=== PATIENT | female | born 1945 | race Caucasian/White ===

== ENCOUNTER 2019-09-27 08:47 | Observation (INO) ==
--- NOTE | 2019-09-06 14:01 | PAT Medication Instructions ---
Medication Instructions Date of Service September 06, 2019 Home Medications amoxicillin See Rx Instructions .ROUTE .COMPLEX amlodipine 5 mg tablet 5 mg PO QAM celecoxib 200 mg capsule 200 mg PO QAM nadolol 20 mg tablet 20 mg PO QAM omeprazole 40 mg capsule,delayed release 40 mg PO QAM prednisone 5 mg tablet 5 mg PO QAM famotidine 20 mg PO BID furosemide 40 mg PO QAM gabapentin 300 mg PO TID docusate sodium [Colace] 100 mg PO BID PRN duloxetine 60 mg PO QAM ASK your surgeon for instructions celecoxib 200 mg capsule 200 mg PO QAM DO NOT take the morning of surgery docusate sodium [Colace] 100 mg PO BID PRN furosemide 40 mg PO QAM amoxicillin See Rx Instructions .ROUTE .COMPLEX Take morning of surgery With a small sip of water, OTHERWISE NOTHING TO EAT OR DRINK AFTER MIDNIGHT: duloxetine 60 mg PO QAM gabapentin 300 mg PO TID nadolol 20 mg tablet 20 mg PO QAM omeprazole 40 mg capsule,delayed release 40 mg PO QAM prednisone 5 mg tablet 5 mg PO QAM famotidine 20 mg PO BID amlodipine 5 mg tablet 5 mg PO QAM Take evening before surgery famotidine 20 mg PO BID gabapentin 300 mg PO TID docusate sodium [Colace] 100 mg PO BID PRN Other Notes If you have any questions please call us at [phone] or [phone] or [phone] or [phone]
--- NOTE | 2019-09-08 13:08 | Anesthesiology Consultation ---
Date of Service September 08, 2019 Assessment & Plan (1) Encounter for pre-operative examination: Chart Review Chart Review: Acceptable Risk for Surgery (pending preop Covid testing) and Patient seen in Pre Admission Testing Per PAT appt 09/08/19, pt resides in [facility]. Travels only to [facility] for medical appts. Educated patient to follow up with surgeon's office regarding Covid testing. Educated on importance of self quarantining, social distancing and wearing mask in public both for the patient and household contacts. Teaching & Discussion Pre-Anesthesia Teaching/Discussion Notes: Instructed NPO after midnight before surgery,except medications with 15 cc of water. Medication instructions provided according to the PAT guidelines. History Surgery Operation Date: 09/27/19 09:20 Proposed Procedures p Right Reverse Total Shoulder Arthroplasty - Lanre Parekh DO Operation Date: 09/27/19 13:10 Proposed Procedures p Left Total Knee Arthroplasty - Lanre Parekh DO Height/Weight Height: 5 ft 4.5 in Weight: 94.3 kg Allergies Allergy/AdvReac Type Severity Reaction Status Date / Time latex Allergy Mild RASH Verified 09/02/19 09:07 NSAIDS (Non-Steroidal AdvReac Intermediate steinberg's Verified 09/02/19 09:07 Anti-Inflamma esophagus Dyazide AdvReac Mild reaction Verified 08/26/17 08:15 unknown hydrochlorothiazide AdvReac Mild reaction Verified 09/02/19 09:07 unknown triamterene AdvReac Mild reaction Verified 09/02/19 09:07 unknown Medications Home Medications Medication Instructions Recorded Confirmed Last Taken amoxicillin See Rx Instructions .ROUTE .COMPLEX 07/24/18 09/02/19 Unknown amlodipine 5 mg tablet 5 mg PO QAM 10/08/18 09/02/19 Unknown celecoxib 200 mg capsule 200 mg PO QAM 10/08/18 09/02/19 Unknown nadolol 20 mg tablet 20 mg PO QAM 10/08/18 09/02/19 Unknown omeprazole 40 mg capsule,delayed 40 mg PO QAM 10/08/18 09/02/19 Unknown release prednisone 5 mg tablet 5 mg PO QAM 10/08/18 09/02/19 Unknown famotidine 20 mg PO BID 06/16/19 09/02/19 Unknown furosemide 40 mg PO QAM 06/16/19 09/02/19 Unknown gabapentin 300 mg PO TID 06/16/19 09/02/19 Unknown docusate sodium [Colace] 100 mg PO BID PRN 09/02/19 09/02/19 Unknown duloxetine 60 mg PO QAM 09/02/19 09/02/19 Unknown Past Medical History Medical History (Updated 09/08/19 @ 13:33 by Janice Encinas PA-C) Anxiety Barretts esophagus Breast cancer Left side initially- lumpectomy- no chemo/XRT; right side later dx'ed - had partial mastectomy- s/p XRT /possibly chemo- no current issues Cirrhosis Non-alcoholic Depression Fatty liver GERD (gastroesophageal reflux disease) Well controlled and stable History of anesthesia reaction slow to wake up Hypertension Non-Hodgkin lymphoma chemo/radiation- currently remission Osteoarthritis Skin cancer Exercise / Class Metabolic Activity III < 4 Walking/Shop/Light housework (one flight stairs - no chest pain/mild SOB) Past Family History Family History (Updated 09/02/19 @ 09:17 by Karla Patel RN) Other No family history of adverse response to anesthesia Past Surgical History Surgical History (Updated 09/08/19 @ 13:33 by JERRI GomezC) H/O Mohs micrographic surgery for skin cancer Removed from top of head History of appendectomy History of cholecystectomy History of colonoscopy History of esophagogastroduodenoscopy (EGD) History of hysterectomy HAL History of partial mastectomy of right breast with lymph node removal History of right knee joint replacement S/P lumpectomy, left breast Past Anesthesia History No Hx of Anesthesia Complications (with exception with slow to wake- no reintubation or ICU stay ) and No Family Hx of Anesthesia Complications History of PONV No Hx of PONV and No Hx of Motion Sickness Social History Smoking Status: Never smoker Do You Dip or Chew Tobacco: No Hx Alcohol Use: No Hx Substance Use: No substance use type: does not use Review of Systems Occ snoring/possible witnessed apnea- no hx of sleep study Patient denies chest pain, shortness of breath, dyspnea on exertion, cough, wheezing, palpitations. No hx of seizures, stroke, [place]. No hx of blood clots or blood transfusions Physical Exam Vital Signs VITALS BP 138/78 P 61 TEMP 97.4 SP02 96% RESP 16 Constitutional no acute distress ENMT Mouth: no TMJ clicking Thyromental Distance: < 3.5 Finger Breadths (2.5) Mallampati Class: II Missing molars Neck + thick neck and + limited neck extension (significant ) Respiratory normal respiratory effort; no respiratory distress Auscultation: lungs clear to auscultation bilaterally; no wheezes Cardiovascular Rate/Rhythm: regular rate and regular rhythm Heart Sounds: no murmur Vessels: no carotid bruit Musculoskeletal Spine: + pain with cervical ROM (mild) Neurologic moves all extremities Psychiatric Orientation: alert Testing Laboratory Results 09/08/19 13:22 09/08/19 13:22 PT 10.5 Seconds (9.0-12.0) 09/08/19 13:22 INR 1.0 (0.9-1.1) 09/08/19 13:22 APTT 25.2 Seconds (21.0-31.0) 09/08/19 13:22 Blood Type A Positive 09/08/19 13:22 Antibody Screen NEGATIVE 09/08/19 13:22 Electrocardiogram Date: 09/08/19 Findings: + NSR @ (60) Chest X-Ray Date: 09/08/19 Findings: + NAD Echocardiogram Date: 12/30/17 EF: 55 to 59% LV Function: normal Valvular Disease: + AI (Moderate) Mild MR. Mild TR. Mild LA. Stress Test Date: 01/29/18 Type: DSE Resting RWMA: + none Stress echo was negative for inducible ischemia. No arrhythmias. Hypertensive BP response to dobutamine infusion.
[2019-09-08 13:50] LABS: Basophils # (auto) 0.03 K/uL (0-0.2); Basophils % (auto) 0.4 %; Eosinophils # (auto) 0.14 K/uL (0-0.5); Eosinophils % (auto) 1.7 %; Hematocrit (blood only) 41.2 % (37-47); Hemoglobin 14.1 g/dL (12.0-16.0); Immature Granulocytes # (auto) 0.07 K/uL (0.00-0.02); Immature Granulocytes % (auto) 0.9 %; Lymphocytes # (auto) 1.21 K/uL (1.2-3.4); Lymphocytes % (auto) 15.1 %; Mean Corpuscular Hemoglobin 33.7 pg (25-34); Mean Corpuscular Hgb Conc 34.2 g/dL (32-36); Mean Corpuscular Volume 98.3 fL (80-100); Mean Platelet Volume 10.3 fL (7.4-10.4); Monocytes # (auto) 1.18 K/uL (0.11-0.59); Monocytes % (auto) 14.7 %; Neutrophils % (auto) 67.2 %; Platelet Count 172 K/uL (130-400); RDW Coefficient of Variation 15.5 % (11.5-14.5); RDW Standard Deviation 55.6 fL (36.4-46.3); Red Blood Count 4.19 M/uL (4.2-5.4); White Blood Count 8.03 K/uL (4.8-10.8)
--- NOTE | 2019-09-08 13:51 | XRay Report ---
XR chest Pre-admission PA/Lat CLINICAL HISTORY: pat preoperative COMPARISON STUDY: 02/22/2013 FINDINGS: The bones soft tissues and hemidiaphragms are normal. The cardiomediastinal silhouette is n ormal. The lungs are clear. The pulmonary vasculature is normal. IMPRESSION: Negative chest. ACT 112: Negative or not required by law. The above report was generated using voice recognition software. It may contain grammatical, syntax or spelling errors. Electronically signed by: Sammy Magdaleno M.D. 09/08/2019 1:50 PM
[2019-09-08 14:02] LABS: Partial Thromboplastin Ratio 0.9; Partial Thromboplastin Time 25.2 Seconds (21.0-31.0); Prothrombin Time 10.5 Seconds (9.0-12.0)
[2019-09-08 14:18] LABS: BUN Creatinine Ratio 16.6 (10-20); Calcium 9.5 mg/dl (8.5-10.1); Creatinine Clr Calc Pharmacy 64.8 ml/min; Est GFR (African American) 76.6; Est GFR (Non-African American) 66.1
--- NOTE | 2019-09-09 09:05 | Electrocardiogram Report ---
Test Reason : Blood Pressure : / mmHG Vent. Rate : 060 BPM Atrial Rate : 060 BPM P-R Int : 198 ms QRS Dur : 094 ms QT Int : 416 ms P-R-T Axes : -07 -25 025 degrees QTc Int : 416 ms Normal sinus rhythm Normal ECG When compared with ECG of 10-JAN-2015 11:33, No significant change was found Confirmed by Herve Arzate ([id number]) on 09/09/2019 9:04:38 AM Referred By: Lanre Parekh Confirmed By:Herve Arzate
--- NOTE | 2019-09-22 07:29 | History & Physical Report ---
Date of Service September 22, 2019 Assessment & Plan (1) Osteoarthritis of left knee: We will proceed with a left total knee arthroplasty. Postoperatively she will be started on aspirin for DVT prophylaxis and kept overnight in the hospital for postoperative medical management. She plans to use home health of [facility] upon discharge. Present on Admission?: Yes History of Present Illness Chief Complaint: Primary osteoarthritis of the left knee Primary Care Provider: Kerrie Miranda MD Montse is a pleasant 73-year-old female who is been dealing with chronic increasing left knee pain. X-rays and clinical examination have been diagnostic for advanced osteoarthritis of the left knee. After failing conservative treatment, she has elected to proceed with a left total knee arthroplasty. She has a history of a right knee replacement done by Dr. Stanford about 4 years ago. Allergies Allergy/AdvReac Type Severity Reaction Status Date / Time latex Allergy Mild RASH Verified 09/02/19 09:07 NSAIDS (Non-Steroidal AdvReac Intermediate steinberg's Verified 09/02/19 09:07 Anti-Inflamma esophagus Dyazide AdvReac Mild reaction Verified 08/26/17 08:15 unknown hydrochlorothiazide AdvReac Mild reaction Verified 09/02/19 09:07 unknown triamterene AdvReac Mild reaction Verified 09/02/19 09:07 unknown Home Medications Home Medications Medication Instructions Recorded Confirmed Type amoxicillin See Rx Instructions .ROUTE .COMPLEX 07/24/18 09/02/19 History amlodipine 5 mg tablet 5 mg PO QAM 10/08/18 09/02/19 History celecoxib 200 mg capsule 200 mg PO QAM 10/08/18 09/02/19 History nadolol 20 mg tablet 20 mg PO QAM 10/08/18 09/02/19 History omeprazole 40 mg capsule,delayed 40 mg PO QAM 10/08/18 09/02/19 History release prednisone 5 mg tablet 5 mg PO QAM 10/08/18 09/02/19 History famotidine 20 mg PO BID 06/16/19 09/02/19 History furosemide 40 mg PO QAM 06/16/19 09/02/19 History gabapentin 300 mg PO TID 06/16/19 09/02/19 History docusate sodium [Colace] 100 mg PO BID PRN 09/02/19 09/02/19 History duloxetine 60 mg PO QAM 09/02/19 09/02/19 History Past Med/Surg History Medical History Anxiety Barretts esophagus Breast cancer Left side initially- lumpectomy- no chemo/XRT; right side later dx'ed - had partial mastectomy- s/p XRT /possibly chemo- no current issues Cirrhosis Non-alcoholic Depression Fatty liver GERD (gastroesophageal reflux disease) Well controlled and stable History of anesthesia reaction slow to wake up Hypertension Non-Hodgkin lymphoma chemo/radiation- currently remission Osteoarthritis Skin cancer Surgical History H/O Mohs micrographic surgery for skin cancer Removed from top of head History of appendectomy History of cholecystectomy History of colonoscopy History of esophagogastroduodenoscopy (EGD) History of hysterectomy HAL History of partial mastectomy of right breast with lymph node removal History of right knee joint replacement S/P lumpectomy, left breast Family History Other No family history of adverse response to anesthesia Social History Smoking Status: Never smoker Second Hand Exposure: No; Hx Alcohol Use: No Hx Substance Use: No Preferred Language: Cymraes Communication Ability: Effective Feed Handler Required: No Beliefs That Will Affect Care: None Current Living Situation: Spouse Current Living Situation Comment: and son Feels Safe at Home: Yes Review of Systems Review of Systems: All systems reviewed & are unremarkable except as noted in HPI & below Physical Exam Constitutional: WD/WN, vitals as above Eyes: PERRL, conjunctivae normal, anicteric sclerae ENMT: external ear and nose normal, oropharynx normal Neck: trachea midline, no thyromegaly Respiratory: normal respiratory effort Cardiovascular: RRR, no murmur, no edema Gastrointestinal (Abdomen): normal bowel sounds, soft, nontender, no hepatosp lenomegaly Musculoskeletal: On physical examination of the left knee there is a trace effusion. There is near full range of motion and no evidence of instability. There is significant tenderness palpation along the medial and lateral joint lines and over the distal femoral condyles. Psychiatric: A+Ox3, euthymic affect Results & Data Results & Data ([facility]) Diagnostic Findings Radiographs of the left knee demonstrate advanced osteoarthritis with joint space narrowing osteophyte formation and [id number] articulation. PG Care Time/CCT Total # of Minutes Spent Total Time Spent with Patient: Total time spent is greater than 50% in coordination of care (as documented) at patient's floor/unit and/or counseling patient: Coding Level of Care Code 92713 Initial Inpt Care Lvl 2 Diagnoses Osteoarthritis of left knee M17.12
[~2019-09-27 08:47] MED LIST: ACETAMINOPHEN 500 MG TAB PO SCH; BUPIVACAINE 0.5 % 5 MG/1 ML PF 10ML VIAL ONE; CEFAZOLIN 2000MG 2,000 MG/15 ML SYR IV SCH; EPINEPHrine INJ 1 MG/ML AMP ONE; FAMOTIDINE 20 MG TAB PO SCH; GABAPENTIN 300 MG CAP PO SCH; LR 500ML BOLUS, THEN 15ML/HR IV SCH; LR 60ML/HR IV SCH; ROPIVACAINE 0.5% 5 MG/ML 30 ML VIAL ONE; ROPIVACAINE 0.5% HCL/PF 150 MG, BUPIVACAINE 0.5% MPF 30 ML, EPINEPHrine 30MG/30ML (OR U... INSTIL SCH; TRANEXAMIC ACID 1,000 MG **IV Intra-op IV SCH; TRANEXAMIC ACID 1,000 MG **IV Pre-op IV SCH; dexAMETHasone 4 MG TAB PO SCH
--- NOTE | 2019-09-27 08:47 | History & Physical Bridge Note ---
Date of Service September 27, 2019 History & Physical Bridge Note I have examined the patient, reviewed the History & Physical and in the interval since the performance of the History & Physical I have noted the following changes of clinical significance: no changes noted
[2019-09-27] MEDS ORDERED: MEPERIDINE HCL 25 MG/ML CARP/VIAL IV PRN (09:06)
[2019-09-27] MEDS ORDERED: ePHEDrine sulfate 50 MG/ML AMP IV PRN (09:06)
[2019-09-27] MEDS ORDERED: fentaNYL citrate 100 MCG/2 ML VIAL IV PRN (09:06)
[2019-09-27] MEDS ORDERED: HYDROmorphone INJ 1 MG/ML SYRINGE IV PRN (09:06)
[2019-09-27] MEDS ORDERED: LABETALOL HCL IV 5 MG/ML 20ML IV PRN (09:06)
[2019-09-27] MEDS ORDERED: ONDANSETRON INJ 2 MG/ML 2 ML VIAL IV PRN ×2 (09:06→14:21)
[2019-09-27] MEDS ORDERED: PHENYLEPHRINE 100MCG/ML 5ML SYR IV PRN (09:06)
[2019-09-27] MEDS ORDERED: ATROPINE SULFATE 0.1 MG/ML 10ML SYR IV PRN (09:06)
[2019-09-27] MEDS ORDERED: LIDOCAINE HCL 2% 2 ML VIAL/AMP(20MG/ML) INFIL ONE (10:07)
[2019-09-27] MEDS ORDERED: PROPOFOL IV EMULSION 10 MG/ML 20 ML VIAL IV ONE ×4 (10:07→12:03)
[2019-09-27] MEDS ORDERED: fentaNYL citrate 100 MCG/2 ML VIAL ONE (10:07)
[2019-09-27] MEDS ORDERED: MIDAZOLAM HCL 1 MG/ML 2ML VIAL ONE (10:07)
[2019-09-27] MEDS ORDERED: ORTHO JOINT ANESTHETIC ONE (11:07)
[2019-09-27] MEDS ORDERED: ONDANSETRON INJ 2 MG/ML 2 ML VIAL ONE (12:23)
--- NOTE | 2019-09-27 12:49 | Operative Report ---
PG Post Operative Report Pre & Post Diagnosis Operation Date: 09/27/19 09:20 <No data on this case meets the specified criteria> Operation Date: 09/27/19 10:55 Pre-Op Diagnosis: Degenerative Joint Disease, Left Knee Post-Op Diagnosis: Degenerative Joint Disease, Left Knee I identified the patient and participated in the time-out.: Yes Procedure Operation Date: 09/27/19 09:20 <No data on this case meets the specified criteria> Operation Date: 09/27/19 10:55 Actual Procedures p Left Total Knee Arthroplasty(Left) - Lanre Parekh DO Surgeon Lanre Parekh DO [employer] Teacher Lanre Casillas PAC Estimated Blood Loss 10 Findings Consistent with Post-Op Diagnosis Specimens Left femoral and tibial bone Complications none Disposition Disposition: Recovery Room Indications Montse is a pleasant 73-year-old female who was dealing with chronic increasing left knee pain. X-rays clinical examination were diagnostic for advanced osteoarthritis of the left knee. After failing conservative treatment, she el ected proceed with a left total knee arthroplasty. Description of Procedure Implants used: I used a Jordan Persona total knee arthroplasty system with a size 5 standard femur, E tibia, 29 patella, and a size 16 medial congruent polyethylene bearing. All components were cemented in place with Palacos G cement. Montse arrived [facility] for the above procedure. She was seen in the preoperative holding area and the operative extremity was identified and signed. She was given a preoperative antibiotic, TXA, a spinal anesthetic and an adductor nerve block. She was taken back to the operating room and laid on the table in supine position. She was given basic sedation. The operative knee was then prepped and draped in sterile fashion. A timeout was done, and the patient and the operative extremity was properly identified. A midline incision was made directly over the patella. Dissection was taken down to the extensor mechanism. A subvastus arthrotomy was used. The medial retinaculum was released and the fat pad was mostly excised. The knee was flexed and the ACL, PCL, and meniscus were removed. A drill was sent down the center of the femoral canal followed by an intramedullary diana. Off that diana a distal femoral cutting block was placed. 9 mm was resected off the distal femur at 5 of valgus. A posterior referencing AP sizing guide was then placed on the distal femur. The femur measured to be a size 5 standard. 2 drill holes were placed in 3 of external rotation. A 4-in-1 cutting block was then impacted into place. Anterior, posterior, and chamfer cuts were then made. The proximal tibia was then exposed. An external tibial alignment guide was placed. A tibial cut guide was then anchored in place and the proximal tibia was then resected. The posterior aspect of the knee was then opened up and any additional meniscus fragments and osteophytes were removed. The tibia measured to be a size E. The tibial plate was then placed in the appropriate rotation and the tibia was drilled and punched. Trial components were then placed. I used a size 16 medial congruent rossy yethylene insert. The knee was brought through a full range of motion and felt to be stable. The peg holes for the femoral component were then drilled. The patella was then everted and 9 mm was resected off the posterior aspect of the patella. The patella measured to be a size 29. 3 peg holes were then drilled. A trial patella was placed. The knee was once again brought through a full range of motion and felt to be stable. Trial components were then removed. The surrounding soft tissues were injected with 100 cc of an orthopedic pain control cocktail. All components were then cemented into place with Palacos G cement. The final polyethylene insert was then snapped into place. Once cement was dry the tourniquet was deflated. Hemostasis was obtained. A dilute betadyne lavage was then done for 3 minutes. The joint was then irrigated with normal saline solution. The subvastus arthrotomy was then closed with #1 Vicryl suture. The skin was closed with 2-0 Vicryl, 3-0V lock suture, and sriram. A Silverlon and a soft compressive dressing were placed. She was then transferred to a hospital bed and taken to the postanesthesia care unit in stable condition. She tolerated the procedure well. Lanre Casillas PA-C, was present for the entire procedure. He was critical for patient positioning, prepping, draping, retraction exposure, wound closure and application of sterile dressing. I attest to the content of the Intraoperative Record and any orders documented therein. Any exceptions are noted below.
--- NOTE | 2019-09-27 13:31 | XRay Report ---
TWO VIEWS LEFT KNEE CLINICAL HISTORY: Postoperative examination. FINDINGS: AP and crosstable lateral portable views of the left knee are obtained. A left knee arthrop lasty is in near anatomic alignment. There has been undersurface remodeling of the patella. No acute fracture is seen. There are expected postoperative changes around the knee including skin clips, soft tissue edema, and subcutaneous gas. IMPRESSION: Expected postoperative changes status post left knee arthroplasty. No acute fracture is s een. ACT 112: Negative or not required by law. Electronically signed by: Kyle Charles M.D. 09/27/2019 1:30 PM
--- NOTE | 2019-09-27 13:49 | Anesthesiology Progress Note ---
Date of Service September 27, 2019 Anesthesia Post Procedure Vital Signs Vital Signs: Temp Pulse Resp BP Pulse Ox 09/27/19 13:40 66 20 141/84 H 94 09/27/19 13:30 65 20 153/73 H 99 09/27/19 13:20 64 20 148/74 H 98 09/27/19 13:10 70 17 151/78 H 96 09/27/19 13:05 37.2 C 64 20 150/80 H 98 09/27/19 10:01 64 20 147/74 H 97 09/27/19 09:12 36.7 C 71 20 164/97 H 95 Pain Intensity Left Knee: Pain Intensity: 0 Transfer of Care Handoff Completed per policy Notes Mental Status: alert / awake / arousable Patient Amnestic to Procedure: Yes Nausea / Vomiting: adequately controlled Pain: adequately controlled Airway Patency, RR, SpO2: stable & adequate BP & HR: stable & adequate Hydration State: stable & adequate Neuraxial Anesthesia: was administered and sensory block is resolving Anesthetic Complications: no major complications apparent and Pt Satisfied with anesthetic care
[2019-09-27] MEDS ORDERED: MAGNESIUM HYDROXIDE SUSP 30 ML UDC PO PRN (14:21)
[2019-09-27] MEDS ORDERED: HYDROmorphone INJ 0.5 MG/0.5 ML SYR IV PRN (14:21)
[2019-09-27] MEDS ORDERED: bisacodyL 10 MG SUPP PR PRN (14:21)
[2019-09-27] MEDS ORDERED: NALOXONE HCL 0.4 MG/1 ML VIAL/CARP IV PRN (14:21)
[2019-09-27] MEDS ORDERED: DOCUSATE SODIUM 100 MG CAP PO PRN (14:21)
[2019-09-27] MEDS ORDERED: METOCLOPRAMIDE HCL INJ 5 MG/ML 2 ML VIAL IV PRN (14:21)
[2019-09-27] MEDS ORDERED: SODIUM CHLORIDE 0.9% 1000ML 1,000 ML IV SCH (14:30)
[2019-09-27] MEDS: KETOROLAC TROMETHAMINE 15 MG/ML VIAL IV SCH ×2 (14:55→20:08)
[2019-09-27] MEDS: ACETAMINOPHEN 500 MG TAB PO SCH (17:16)
[2019-09-27] MEDS: GABAPENTIN 300 MG CAP PO SCH ×2 (17:17→20:07)
[2019-09-27] MEDS: OXYCODONE HCL IR 5 MG TAB (IMMEDIATE RELEASE) PO PRN ×2 (18:31→22:36)
[2019-09-27] MEDS: CEFAZOLIN 2000MG 2,000 MG/15 ML SYR IV SCH (20:07)
[2019-09-27] MEDS: DOCUSATE SODIUM 100 MG CAP PO SCH (20:08)
[2019-09-27] MEDS: SENNA 8.6 MG TAB PO SCH (20:22)
[2019-09-27] MEDS: FAMOTIDINE 20 MG TAB PO SCH (20:23)
[2019-09-28] MEDS: KETOROLAC TROMETHAMINE 15 MG/ML VIAL IV SCH ×4 (03:00→20:41)
[2019-09-28] MEDS: CEFAZOLIN 2000MG 2,000 MG/15 ML SYR IV SCH (03:00)
[2019-09-28] MEDS: ACETAMINOPHEN 500 MG TAB PO SCH ×3 (05:36→22:30)
[2019-09-28 05:45] LABS: Hematocrit (blood only) 39.5 % (37-47); Hemoglobin 13.6 g/dL (12.0-16.0); Mean Corpuscular Hemoglobin 33.6 pg (25-34); Mean Corpuscular Hgb Conc 34.4 g/dL (32-36); Mean Corpuscular Volume 97.5 fL (80-100); Mean Platelet Volume 10.2 fL (7.4-10.4); Platelet Count 158 K/uL (130-400); RDW Coefficient of Variation 13.6 % (11.5-14.5); RDW Standard Deviation 48.7 fL (36.4-46.3); Red Blood Count 4.05 M/uL (4.2-5.4); White Blood Count 15.07 K/uL (4.8-10.8)
[2019-09-28] MEDS: OXYCODONE HCL IR 5 MG TAB (IMMEDIATE RELEASE) PO PRN ×3 (05:50→19:36)
[2019-09-28 06:09] LABS: BUN Creatinine Ratio 17.6 (10-20); Calcium 8.6 mg/dl (8.5-10.1); Creatinine Clr Calc Pharmacy 63.6 ml/min; Est GFR (African American) 75.5; Est GFR (Non-African American) 65.2; Potassium 5.5 mmol/L (3.5-5.1)
--- NOTE | 2019-09-28 06:56 | Orthopedic Progress Note ---
Date of Service September 28, 2019 Assessment & Plan (1) Status post left knee replacement: Overall she is doing fairly well. She is not having much pain in the left knee. She will be seen by physical therapy today for ambulation and range of motion exercises. She is on aspirin for DVT prophylaxis. We will keep her in the hospital today for pain control and plan to discharge her to home tomorrow. Present on Admission?: Yes Admission and Anticipated Discharge Date Admission Date: September 27, 2019 Justin Willard was seen and examined at bedside this morning. Overall she is doing fairly well. She is not having much pain in the left knee. She has been able to ambulate to the bathroom. She has no complaints. Physical Exam Musculoskeletal: On physical examination of the left knee, the dressing is clean and dry. Her leg is out in full extension. She has active dorsiflexion and plantarflexion of her left ankle. Results & Data ([facility]) Vital Signs (Past 12 Hours) Vital Signs Temp Pulse Resp BP Pulse Ox 09/28/19 03:03 36.7 C 62 18 113/73 94 09/28/19 00:05 36.5 C 62 18 113/67 93 09/27/19 19:33 36.3 C L 70 15 124/74 93 Laboratory Results H & H 09/08/19 09/28/19 Range/Units 13:22 05:33 Hgb 14.1 13.6 (12.0-16.0) g/dL Hct 41.2 39.5 (37-47) % Coagulation 09/08/19 Range/Units 13:22 INR 1.0 (0.9-1.1) Diagnostic Findings Postoperative x-rays of the left knee show the prosthesis to be in anatomic alignment without any evidence of fracture, dislocation, or loosening. PG Care Time/CCT Total # of Minutes Spent Total Time Spent with Patient: Total time spent is greater than 50% in coordination of care (as documented) at patient's floor/unit and/or counseling patient: Coding Level of Care Code None Diagnoses Status post left knee replacement Z96.652
[2019-09-28] MEDS ORDERED: dexAMETHasone 4 MG TAB PO SCH (08:00)
[2019-09-28] MEDS: DOCUSATE SODIUM 100 MG CAP PO SCH ×2 (09:00→20:41)
[2019-09-28] MEDS: nadoloL 40 MG TAB PO SCH (09:01)
[2019-09-28] MEDS: DULOXETINE HCL 60 MG CAP PO SCH (09:02)
[2019-09-28] MEDS: MULTIVITAMIN TAB PO SCH (09:02)
[2019-09-28] MEDS: FUROSEMIDE 40 MG TAB PO SCH (09:02)
[2019-09-28] MEDS: GABAPENTIN 300 MG CAP PO SCH ×3 (09:03→20:41)
[2019-09-28] MEDS: AMLODIPINE BESYLATE 5 MG TAB PO SCH (09:03)
[2019-09-28] MEDS: PANTOprazole 40 MG TAB PO SCH (09:03)
[2019-09-28] MEDS: FAMOTIDINE 20 MG TAB PO SCH ×2 (09:03→20:41)
[2019-09-28] MEDS: SENNA 8.6 MG TAB PO SCH (20:40)
[2019-09-29] MEDS: KETOROLAC TROMETHAMINE 15 MG/ML VIAL IV SCH ×2 (03:12→09:04)
[2019-09-29] MEDS: ACETAMINOPHEN 500 MG TAB PO SCH ×3 (05:28→22:34)
[2019-09-29] MEDS: OXYCODONE HCL IR 5 MG TAB (IMMEDIATE RELEASE) PO PRN ×3 (05:28→21:15)
--- NOTE | 2019-09-29 07:10 | Orthopedic Progress Note ---
Date of Service September 29, 2019 Assessment & Plan (1) Status post left knee replacement: Unfortunately she is having a lot of pain in the left knee. She was slow to ambulate yesterday with physical therapy. She seems to be doing well medically. I do want to keep her in the hospital today for some more physical therapy and some pain control. I want a make sure she is safe before returning to home tomorrow. She is on aspirin for DVT prophylaxis. We will plan discharge to home tomorrow. Present on Admission?: Yes Admission and Anticipated Discharge Date Admission Date: September 27, 2019 Justin Willard was seen and examined at bedside this morning. She still having a lot of pain in the left knee. She was slow to ambulate with physical therapy yesterday. She is not having a nausea and she is not having any bowel pains. She just feels like her knee is coming along slowly and it is a little bit stiff. She has no other complaints. Physical Exam Musculoskeletal: On physical examination of the left knee there is a clean Silverlon dressing in place. She has active dorsiflexion and plantarflexion of her left ankle. Sensations intact throughout. Results & Data ([facility]) Vital Signs (Past 12 Hours) Vital Signs Temp Pulse Resp BP Pulse Ox 09/29/19 06:06 36.5 C 67 16 149/79 H 93 09/28/19 23:08 36.8 C 66 19 105/64 92 09/28/19 19:47 36.5 C 68 19 114/68 93 PG Care Time/CCT Total # of Minutes Spent Total Time Spent with Patient: Total time spent is greater than 50% in coordination of care (as documented) at patient's floor/unit and/or counseling patient: Coding Level of Care Code None Diagnoses Status post left knee replacement Z96.652
[2019-09-29] MEDS: DOCUSATE SODIUM 100 MG CAP PO SCH ×2 (09:04→19:34)
[2019-09-29] MEDS: GABAPENTIN 300 MG CAP PO SCH ×3 (09:04→19:35)
[2019-09-29] MEDS: FUROSEMIDE 40 MG TAB PO SCH (09:05)
[2019-09-29] MEDS: MULTIVITAMIN TAB PO SCH (09:05)
[2019-09-29] MEDS: DULOXETINE HCL 60 MG CAP PO SCH (09:05)
[2019-09-29] MEDS: PANTOprazole 40 MG TAB PO SCH (09:05)
[2019-09-29] MEDS: predniSONE 5 MG TAB PO SCH (09:05)
[2019-09-29] MEDS: FAMOTIDINE 20 MG TAB PO SCH ×2 (09:05→19:35)
[2019-09-29] MEDS: nadoloL 40 MG TAB PO SCH (09:06)
[2019-09-29] MEDS: AMLODIPINE BESYLATE 5 MG TAB PO SCH (09:07)
[2019-09-29] MEDS: SENNA 8.6 MG TAB PO SCH (19:35)
[2019-09-30] MEDS: ACETAMINOPHEN 500 MG TAB PO SCH ×2 (05:58→12:59)
--- NOTE | 2019-09-30 06:59 | Orthopedic Progress Note ---
Date of Service September 30, 2019 Assessment & Plan (1) Status post left knee replacement: Overall she is doing a little bit better. She is having a lot of swelling and some postoperative bleeding around her left knee. She is on aspirin for DVT prophylaxis. I do want a get an ultrasound of her left leg to make sure that she does not have a DVT before we discharge her to home. As long as the ultrasound is negative and she does okay today with physical therapy then she can be discharged home later today. Present on Admission?: Yes Admission and Anticipated Discharge Date Admission Date: September 27, 2019 Justin Willard was seen and examined at bedside this morning. Overall she is doing a little bit better. She still complains of stiffness and tightness in the left knee. She ambulated some in the morning yesterday with physical therapy but she did not ambulate in the afternoon. She was having some bleeding around her dr essing. The dressing was changed. Overall she feels a little bit better today than she did yesterday. She has no other complaints. Physical Exam Musculoskeletal: On physical examination of the left leg, the current Silverlon dressing is clean and dry. She has lost swelling in around her knee. She has minimal pain in her calf. Results & Data ([facility]) Vital Signs (Past 12 Hours) Vital Signs Temp Pulse Resp BP Pulse Ox 09/29/19 23:20 36.7 C 72 18 154/81 H 93 PG Care Time/CCT Total # of Minutes Spent Total Time Spent with Patient: Total time spent is greater than 50% in coordination of care (as documented) at patient's floor/unit and/or counseling patient: Coding Level of Care Code None Diagnoses Status post left knee replacement Z96.652
--- NOTE | 2019-09-30 08:17 | Ultrasound Report ---
LEFT LOWER EXTREMITY VENOUS DOPPLER HISTORY: Left leg swelling. Postoperative stiffness and swelling COMPARISON STUDY: None. FINDINGS: There is normal compressibility, flow, and augmentation within the left lower extremity torsten p venous system. IMPRESSION: No DVT within the left lower extremity. ACT 112: Negative or not required by law. Electronically signed by: William Maldonado M.D. 09/30/2019 8:16 AM
[2019-09-30] MEDS ORDERED: ASPIRIN 81 MG ECTAB PO SCH (09:00)
[2019-09-30] MEDS: FUROSEMIDE 40 MG TAB PO SCH (09:18)
[2019-09-30] MEDS: DULOXETINE HCL 60 MG CAP PO SCH (09:19)
[2019-09-30] MEDS: predniSONE 5 MG TAB PO SCH (09:19)
[2019-09-30] MEDS: GABAPENTIN 300 MG CAP PO SCH ×2 (09:19→12:59)
[2019-09-30] MEDS: AMLODIPINE BESYLATE 5 MG TAB PO SCH (09:19)
[2019-09-30] MEDS: MULTIVITAMIN TAB PO SCH (09:19)
[2019-09-30] MEDS: FAMOTIDINE 20 MG TAB PO SCH (09:20)
[2019-09-30] MEDS: nadoloL 40 MG TAB PO SCH (09:20)
[2019-09-30] MEDS: DOCUSATE SODIUM 100 MG CAP PO SCH (09:20)
[2019-09-30] MEDS: OXYCODONE HCL IR 5 MG TAB (IMMEDIATE RELEASE) PO PRN ×2 (09:21→17:29)
[2019-09-30] MEDS: PANTOprazole 40 MG TAB PO SCH (09:21)
--- NOTE | 2019-09-30 14:46 | Discharge Summary ---
Date of Service September 30, 2019 Admission HPI Per Admitting Provider Montse is a pleasant 73-year-old female who is been dealing with chronic increasing left knee pain. X-rays and clinical examination have been diagnostic for advanced osteoarthritis of the left knee. After failing conservative treatment, she has elected to proceed with a left total knee arthroplasty. She has a history of a right knee replacement done by Dr. Stanford about 4 years ago. Principal Diagnosis Left knee replacement Discharge Data Allergies Allergy/AdvReac Type Severity Reaction Status Date / Time latex Allergy Mild RASH Verified 09/27/19 09:22 NSAIDS (Non-Steroidal AdvReac Intermediate steinberg's Verified 09/27/19 09:22 Anti-Inflamma esophagus Dyazide AdvReac Mild reaction Verified 08/26/17 08:15 unknown hydrochlorothiazide AdvReac Mild reaction Verified 09/27/19 09:22 unknown triamterene AdvReac Mild reaction Verified 09/27/19 09:22 unknown Consultations 09/27/19 14:21 Consult Case Management - Discharge Planning Routine Procedures Performed Operation Date: 09/27/19 09:20 <No data on this case meets the specified criteria> Operation Date: 09/27/19 10:55 Actual Procedures p Left Total Knee Arthroplasty(Left) - Lanre Parekh DO Ordered Studies 09/27/19 05:00 US - OR guided needle placemen Routine 09/30/19 08:00 US venous doppler LE LT Urgent Hospital Course (1) Status post left knee replacement: On September 27, 2019 Montse arrived at [facility] and underwent a left knee replacement without complication. She had a spinal anesthetic. Postoperatively she was started on aspirin for DVT prophylaxis and transferred to the general orthopedic floors. Her hospital course was uneventful. On postop day #1 her H&H was stable but she was having some pain in the knee. She was seen by physical therapy. She was able to ambulate but her knee pain continued. On postop day #2 she was having worsening pain in her knee. She was having some bleeding underneath her dressing the dressing was changed. She was seen by physical therapy and able to ambulate well. On postop day #3 her pain was better controlled. She was complaining of some swelling around the knee so I did an ultrasound of her left leg and that was negative. She was then discharged home. She will follow-up with orthopedics in 2 weeks. Total Time Total Time Spent Total Time Spent (In Minutes): 20 Discharge Plan Discharge Items Patient Disposition: Home - Home Health Services Reason For Visit: Degenerative Joint Disease, Left Knee Discharge Diagnosis: Left knee replacement Activity: As commented below Non-emergency contact: Surgeon Call non-emergency contact if: your wound has increased redness and your wound has increased drainage Follow-up/Referrals: Kerrie Miranda MD [Primary Care Provider] - Diet: Regular Addtl Attending Provider Instructions: Activity and Therapy Recommendations: * If you are using [facility] then therapy will be provided at your home until they feel you have accomplished all of your goals. * If you are using [facility] then Physical Therapy will be provided until they feel you are ready to start Outpatient Physical Therapy. * If you are not using home therapy then Outpatient Physical Therapy should start about 3-5 days from your day of surgery. Therapy will last about 6-10 weeks * It is important not to put a pillow under your knee when you are relaxing or sleeping. It is just as important to make sure you are getting your knee perfectly straight as it is to regain your knee bend. * You were shown a series of exercises in the hospital. Do these exercises three times each day including the exercises you were shown in physical therapy. * Get up and walk several times each day. For the first four weeks, try not to stand or walk for more than one hour at a time. If you do stand or walk for more than one hour, you will not hurt anything, but your leg will likely swell. * As you feel comfortable, you may change from the walker or crutches to a cane and then to independent walking. Medications: * Narcotic You will likely be sent home from the hospital with a prescription for the narcotic pain medication that worked best throughout your stay. * Aspirin Most patients will be required to take Aspirin 81mg twice a day for 6 weeks after surgery. This is obtained [id number] and a prescription is not necessary. * Other medications may be prescribed for specific circumstances. If you have any questions, please call the office at . * Resume previous home medications unless otherwise instructed TEDs/Elastic Stockings: The white elastic stockings help limit swelling and prevent blood clots from forming in your legs.~ The more you wear them, the more they work. Wear them for six weeks. Dressing Care: Leave the Silverlon dressing in place for 7 days. After 7 days you may remove the dressing. If the incision is not draining then you may leave the sriram open to air. If there is a little bit of drainage or if the sriram are getting stuck on your clothing then cover the incision with a dry dressing. The sriram will be removed at your 2 week follow-up appointment. Showering: You may shower with the Silverlon dressing in place. Do not let the shower spray hit the dressing directly. Pat the Silverlon dressing dry. If the dressing becomes wet underneath, then simply remove the dressing. Keep the incision dry until you are 7 days out from the day of surgery. After 7 days you may remove the Silverlon dressing and shower with the sriram exposed. Let soapy water run over the sriram and pat them dry. Do not scrub or soak the incision. Things To Watch For: * Drainage from the incision site that occurs more than one week after your surgery. * Increased redness at the incision site. * Fever above 102 degrees Fahrenheit. * Unusual chest pain or shortness of breath. * Call [facility] at with any of the above problems Follow-Up Visit: Follow-up with Dr. Parekh's PA (Lanre Casillas) 2-3 weeks after your day of surgery. He will remove your sriram and answer any questions. If you have any additional questions or concerns, Dr Parekh is usually in the office at the same time and will be available An appointment was probably scheduled when you signed-up for surgery in the office. If you have any questions call Office Instructions: More detailed instructions as well as Frequently Asked Questions were provided in a folder by our office when you signed-up for surgery. Please review these instructions when you get home. If you have any further questions or concerns, please feel free to call the office at [phone] Pending Studies at Discharge: No Stand-Alone Forms: My [facility], Smoking Cessation Medications and DC Order Prescriptions: New oxycodone 5 mg Tablet 5 mg PO Q4H PRN (Reason: pain) Qty: 30 RF: 0 aspirin 81 mg Tablet,Delayed Release (Dr/Ec) 81 mg PO BID 42 Days Qty: 0 RF: 0 Continued omeprazole 40 mg capsule,delayed release(DR/EC) 40 mg PO QAM RF: 0 celecoxib [Celebrex] 200 mg capsule 200 mg PO QAM RF: 0 prednisone 5 mg tablet 5 mg PO QAM RF: 0 nadolol 20 mg tablet 20 mg PO QAM RF: 0 amlodipine 5 mg tablet 5 mg PO QAM RF: 0 docusate sodium [Colace] 100 mg capsule 100 mg PO BID PRN (Reason: Constipation) RF: 0 duloxetine 60 mg capsule,delayed release(DR/EC) 60 mg PO QAM RF: 0 amoxicillin 500 mg Capsule See Rx Instructions .ROUTE .COMPLEX RF: 0 famotidine 20 mg tablet 20 mg PO BID RF: 0 gabapentin 300 mg capsule 300 mg PO TID RF: 0 furosemide 20 mg tablet 40 mg PO QAM RF: 0 Discharge Orders: Discharge Order (Routine); Ordered 09/30/19 Ordered By: Lanre Parekh Admission Data Admit Date/Time: 09/27/19 13:07 Attending Provider: Lanre Parekh Admit Provider: Lanre Parekh Primary Care Provider: Kerrie Miranda Other Providers: [facility],Home Health Coding Level of Care Code D/C Day Management <30 mins Diagnoses Status post left knee replacement Z96.652
--- NOTE | 2019-10-07 10:19 | Coding Query ---
A supporting diagnosis is required for the test/procedure performed on this patient in order for us to be reimbursed by the patient's insurance. Please provide a supporting diagnosis for the following test/procedure listed below next to the test name along with your signature. *If there is no additional diagnosis for this patient that would support the following test/procedure please document that below next to the test/procedure. Test(s)/Procedure(s) that require a supporting diagnosis: US venous doppler LE LT Urgent DIAGNOSIS: possible L LE DVT Provider Signature: ____Lanre Jacksoner Date: __[id number] Thank you Erika Arellano Health Information Management Once completed, please kindly fax back to [phone] For questions please call [phone] AU[place]
== END 2019-09-30 18:17 | disposition home health service (06) ==
LOC: 3E 08:47 → ASU 08:47

== ENCOUNTER 2019-12-20 13:29 | Inpatient (IN) ==
[2019-12-20] MEDS ORDERED: VANCOMYCIN HCL 2,250 MG in SODIUM CHLORIDE 0.9% 500 ML IV ONE (13:59)
[2019-12-20] MEDS ORDERED: AMPICILLIN/SULBACTAM SOD 3,000 MG in 0.9 % SODIUM CHLORIDE 100 ML IV STA (13:59)
[2019-12-20] MEDS ORDERED: SODIUM CHLORIDE 0.9% 1000ML 500 ML IV ONE (13:59)
[2019-12-20] MEDS ORDERED: VANCOMYCIN CONSULT ACTIVE PRN (13:59)
[2019-12-20] MEDS ORDERED: DIPHTHERIA/TETANUS/PERTUSSIS 0.5 ML SYR/VIAL IM ONE (13:59)
[2019-12-20] MEDS ORDERED: ACETAMINOPHEN 1000 MG/100 ML IV IV STA (14:02)
--- NOTE | 2019-12-20 14:08 | Emergency Department Note ---
Impression & Plan Cellulitis of left leg, Cat bite, Leukocytosis, Vomiting, Hypomagnesemia ED Provider Note NAME: ISAIAH YBARRA AGE: 73 SEX: F : 1945 ARRIVES VIA: Ambulance INFORMANT: [Patient] ED PROVIDER(S): [Kyle Hatch MD] CHIEF COMPLAINT: Animal bite HISTORY OF PRESENT ILLNESS: The patient is a 73-year-old female who states that 2 days ago, her cat bit her in the left leg. Yesterday, the leg became red and painful. Today things were worse. The pain is a 7 on a scale of 1-10. She has a hard time walking. She presents by ambulance. The patient had some chills and maybe a fever yesterday, she vomited today and has been nauseated. Patient has felt slightly more short of breath than baseline. There has been no cough. No abdominal pain. No urinary complaints. The patient states that her cat is current with immunizations, it is a house cat. She states that she thinks that she is current with tetanus but cannot be sure she has had an update within the last 5 years. The patient has noticed some scant drainage from one of the puncture wounds from the bite. REVIEW OF SYSTEMS: See HPI for pertinent positives and negatives. A total of ten systems were reviewed and were otherwise negative. PMHx/PSHx: See Below SOCIAL HISTORY: See Below. PHYSICAL EXAM: GENERAL: Patient is in no acute distress. HEENT: No acute trauma, normocephalic atraumatic, mucous membranes moist, no nasal congestion, no scleral icterus. NECK: No stridor, no adenopathy, no meningismus, trachea is midline. LUNGS: Clear to auscultation bilaterally, no wheeze, no rhonchi, breath sounds equal. HEART: Subtle systolic murmur, regular rate and rhythm. ABDOMEN: Soft, nontender, bowel sounds positive, no hernias, no peritonitis. EXTREMITIES: No cyanosis. The patient's left lower extremity is edematous and erythematous from the ankle to the proximal thigh. The thigh erythema is mostly medial. The tib-fib region has some scant drainage from what appears to be a puncture wound to the mid anterior portion of the leg. The area surrounding this puncture wound is swollen and quite tender, there appears to be some potential fluctuance present. I do not feel any crepitus. There is no evidence for distal neurovascular compromise in the left lower extremity. NEUROLOGIC: Oriented x 3, no acute motor or sensory deficits, no focal weakness. SKIN: No jaundice, no diaphoresis. DIFFERENTIAL DIAGNOSIS: Sepsis, UTI, pneumonia, metabolic, electrolyte abnormalities, cellulitis, abscess, necrotizing fasciitis, compartment syndrome, cardiac sources, intracerebral event, toxicologic, neurologic, as well as other pathologies. EMERGENCY DEPARTMENT COURSE/PROCEDURES: ECG: Indication was possible sepsis. The ECG shows a normal sinus rhythm with a rate of 84. There is no ST elevation, no PVCs. LVH is present. The QTc is 418. Continuous Cardiac Monitoring: An order was placed for continuous cardiac monitoring. The monitor shows a rate of 74 with normal sinus rhythm. MEDICAL DECISION MAKING: There is a mild leukocytosis, this could be consistent with infection. No anemia. There is a normal platelet count. INR was slightly elevated at 1.2. No kidney failure. Lactic acid level was elevated at around 3, this elevation is consistent with infection. Magnesium was low at 1.5. No worrisome liver enzyme elevation. Procalcitonin level was slightly elevated. Chest film did not show pneumonia or CHF. Left leg CT scan did not show abscess or air, ce llulitis was suspected. Culture of the discharge from her bite wound was sent and is pending. On exam, the patient had an extensive cellulitis from her ankle to her thigh. The patient was aggressively managed. This cellulitis has worsened quickly in the last 24 hours. Pasteurella was a real concern given the cat bite history. The patient was given IV saline, 1 L. She received IV Unasyn 3 g, she was given IV vancomycin. Patient received IV Tylenol for pain, she was given IV magnesium. She received an Adacel booster IM. Patient is currently comfortable. I do think she deserves a hospital stay. This infection is extensive and IV antibiotics are indicated. She may in fact at some point require surgical intervention. I did speak to the patient and case management. The on-call hospitalist was consulted. Past Med/Surg History Medical History Anxiety Barretts esophagus Breast cancer Left side initially- lumpectomy- no chemo/XRT; right side later dx'ed - had partial mastectomy- s/p XRT /possibly chemo- no current issues Cirrhosis Non-alcoholic Depression Fatty liver GERD (gastroesophageal reflux disease) Well controlled and stable Hypertension Non-Hodgkin lymphoma chemo/radiation- currently remission Osteoarthritis Skin cancer UTI (urinary tract infection) Took 7 day course antibiotcs- finished yesterday Surgical History H/O Mohs micrographic surgery for skin cancer Removed from top of head History of anesthesia reaction slow to wake up History of appendectomy History of cholecystectomy History of colonoscopy History of esophagogastroduodenoscopy (EGD) History of hysterectomy HAL History of partial mastectomy of right breast with lymph node removal History of right knee joint replacement S/P lumpectomy, left breast Status post left knee replacement (~09/2019) Family History Other No family history of adverse response to anesthesia Social History Smoking Status: Never smoker Second Hand Exposure: No; Hx Alcohol Use: No Hx Substance Use: No Preferred Language: [place] Communication Ability: Effective Materials Mgmt Tech Required: No Beliefs That Will Affect Care: None marital status: Current Living Situation: Spouse Current Living Situation Comment: and son Feels Safe at Home: Yes Assistive Devices: Walker Allergies Allergies Allergy/AdvReac Type Severity Reaction Status Date / Time latex Allergy Mild RASH Verified 09/27/19 09:22 NSAIDS (Non-Steroidal AdvReac Intermediate steinberg's Verified 09/27/19 09:22 Anti-Inflamma esophagus Dyazide AdvReac Mild reaction Verified 08/26/17 08:15 unknown hydrochlorothiazide AdvReac Mild reaction Verified 09/27/19 09:22 unknown triamterene AdvReac Mild reaction Verified 09/27/19 09:22 unknown Home Meds Home Medications Medication Instructions Recorded Confirmed amoxicillin See Rx Instructions .ROUTE .COMPLEX 07/24/18 09/27/19 amlodipine 5 mg tablet 5 mg PO QAM 10/08/18 09/27/19 celecoxib 200 mg capsule 200 mg PO QAM 10/08/18 09/27/19 nadolol 20 mg tablet 20 mg PO QAM 10/08/18 09/27/19 omeprazole 40 mg capsule,delayed 40 mg PO QAM 10/08/18 09/27/19 release prednisone 5 mg tablet 5 mg PO QAM 10/08/18 09/27/19 famotidine 20 mg PO BID 06/16/19 09/27/19 furosemide 40 mg PO QAM 06/16/19 09/27/19 gabapentin 300 mg PO TID 06/16/19 09/27/19 docusate sodium [Colace] 100 mg PO BID PRN 09/02/19 09/27/19 duloxetine 60 mg PO QAM 09/02/19 09/27/19 Previous Rx's Medication Instructions Recorded oxycodone 5 mg PO Q4H PRN #30 tab 09/30/19 ondansetron HCl 4 mg tablet 4 mg PO Q8H PRN #20 tab 10/04/19 hydrocodone 5 mg-acetaminophen 325 1 tab PO Q6H PRN #30 tab 10/11/19 mg tablet methylprednisolone 4 mg tablets in 4 mg PO UD #1 packet 10/11/19 a dose pack ondansetron HCl 4 mg tablet 4 mg PO Q8H PRN #24 tab 10/11/19 Results & Data (ED) Vital Signs Vital Signs - 24 hr 12/20/19 13:37 12/20/19 14:23 12/20/19 15:04 Temperature 37.0 C Temperature Source Oral Pulse Rate 83 Pulse Rate [Apical] 72 Respiratory Rate 18 18 Respiratory Depth Normal Blood Pressure 128/72 Blood Pressure [Left Arm] 113/54 L Blood Pressure Mean 90 Blood Pressure Mean [Left Arm] 73 Pulse Oximetry 95 97 94 Oxygen Delivery Method Room Air Room Air Room Air Sepsis Recent Fever Within 48 Hours No Sepsis New/Unexplained Change in Mental Status N/A Sepsis Action Taken by Nursing No Action Required Home Medications Current Medication List: was personally reviewed by me Laboratory Data Attestation: I reviewed the patient's lab results. Result diagrams: 12/20/19 14:21 12/20/19 14:21 Lab Results 12/20/19 12/20/19 12/20/19 Range/Units 14:21 14:21 14:21 WBC 12.32 H (4.8-10.8) K/uL RBC 4.45 (4.2-5.4) M/uL Hgb 14.4 (12.0-16.0) g/dL Hct 42.7 (37-47) % MCV 96.0 (80-100) fL MCH 32.4 (25-34) pg MCHC 33.7 (32-36) g/dL RDW Std Deviation 51.4 H (36.4-46.3) fL RDW Coeff of Gerry 14.6 H (11.5-14.5) % Plt Count 186 (130-400) K/uL MPV 10.8 H (7.4-10.4) fL Immature Gran % (Auto) 0.3 % Neut % (Auto) 83.8 % Lymph % (Auto) 7.5 % [place] % (Auto) 8.1 % Eos % (Auto) 0.2 % Baso % (Auto) 0.1 % Neut # (Auto) 10.33 H (1.4-6.5) K/uL Lymph # (Auto) 0.92 L (1.2-3.4) K/uL [place] # (Auto) 1.00 H (0.11-0.59) K/uL Eos # (Auto) 0.02 (0-0.5) K/uL Baso # (Auto) 0.01 (0-0.2) K/uL Immature Gran # (Auto) 0.04 H (0.00-0.02) K/uL PT 13.0 H (9.0-12.0) Seconds INR 1.2 H (0.9-1.1) APTT 31.2 H (21.0-31.0) Seconds PTT Ratio 1.1 Sodium (136-145) mmol/L Potassium (3.5-5.1) mmol/L Chloride (98-107) mmol/L Carbon Dioxide (21-32) mmol/L Anion Gap (3-11) BUN (7-18) mg/dl Creatinine (0.6-1.2) mg/dl Est Cr Clr Drug Dosing ml/min Est GFR ( Amer) Est GFR (Non-Af Amer) BUN/Creatinine Ratio (10-20) Glucose (70-99) mg/dl Lactate (0.4-2.0) mmol/L Calcium (8.5-10.1) mg/dl Magnesium (1.8-2.4) mg/dl Total Bilirubin (0.2-1) mg/dl AST (15-37) U/L ALT (12-78) U/L Alkaline Phosphatase (45-117) U/L Total Protein (6.4-8.2) gm/dl Albumin (3.4-5.0) gm/dl Globulin (2.5-4.0) gm/dl Albumin/Globulin Ratio (0.9-2) Procalcitonin 0.61 H (0-0.5) ng/ml 12/20/19 12/20/19 Range/Units 14:21 14:40 WBC (4.8-10.8) K/uL RBC (4.2-5.4) M/uL Hgb (12.0-16.0) g/dL Hct (37-47) % MCV (80-100) fL MCH (25-34) pg MCHC (32-36) g/dL RDW Std Deviation (36.4-46.3) fL RDW Coeff of Gerry (11.5-14.5) % Plt Count (130-400) K/uL MPV (7.4-10.4) fL Immature Gran % (Auto) % Neut % (Auto) % Lymph % (Auto) % [place] % (Auto) % Eos % (Auto) % Baso % (Auto) % Neut # (Auto) (1.4-6.5) K/uL Lymph # (Auto) (1.2-3.4) K/uL [place] # (Auto) (0.11-0.59) K/uL Eos # (Auto) (0-0.5) K/uL Baso # (Auto) (0-0.2) K/uL Immature Gran # (Auto) (0.00-0.02) K/uL PT (9.0-12.0) Seconds INR (0.9-1.1) APTT (21.0-31.0) Seconds PTT Ratio Sodium 138 (136-145) mmol/L Potassium 4.3 (3.5-5.1) mmol/L Chloride 105 (98-107) mmol/L Carbon Dioxide 28 (21-32) mmol/L Anion Gap 5.0 (3-11) BUN 20 H (7-18) mg/dl Creatinine 1.11 (0.6-1.2) mg/dl Est Cr Clr Drug Dosing 50.8 ml/min Est GFR ( Amer) 57.1 Est GFR (Non-Af Amer) 49.2 BUN/Creatinine Ratio 17.7 (10-20) Glucose 194 H (70-99) mg/dl Lactate 2.9 H* (0.4-2.0) mmol/L Calcium 9.1 (8.5-10.1) mg/dl Magnesium 1.5 L (1.8-2.4) mg/dl Total Bilirubin 1.6 H (0.2-1) mg/dl AST 34 (15-37) U/L ALT 41 (12-78) U/L Alkaline Phosphatase 116 (45-117) U/L Total Protein 5.8 L (6.4-8.2) gm/dl Albumin 2.8 L (3.4-5.0) gm/dl Globulin 3.0 (2.5-4.0) gm/dl Albumin/Globulin Ratio 0.9 (0.9-2) Procalcitonin (0-0.5) ng/ml Administered Medications Discontinued Medications Acetaminophen (Acetaminophen 1000 Mg/100 Ml Iv) 1,000 mg IV NOW STA Stop: 12/20/19 14:03 Last Admin: 12/20/19 14:16 Dose: 1,000 mg Documented by: [id number] Diphtheria/Pertussis/Tetanus Vacc (Diphtheria/Tetanus/Pertussis 0.5 Ml Syr/Vial) 0.5 ml IM .ONCE ONE Stop: 12/20/19 14:00 Last Admin: 12/20/19 15:13 Dose: 0.5 ml Documented by: [id number] Sodium Chloride (Nss 1000ml) 500 mls @ 999 mls/hr IV .Q31M ONE Stop: 12/20/19 14:29 Last Infusion: 12/20/19 15:00 Dose: 0 mls/hr Documented by: [id number] Admin: 12/20/19 14:16 Dose: 999 mls/hr Documented by: [id number] Ampicillin Sodium/Sulbactam Sodium 3,000 mg/ Sodium Chloride 108 mls @ 200 mls/hr IV NOW STA; Protocol Stop: 12/20/19 14:31 Last Infusion: 12/20/19 16:11 Dose: 0 mls/hr Documented by: [id number] Admin: 12/20/19 14:59 Dose: 200 mls/hr Documented by: [id number] Vancomycin HCl 2,250 mg/ (Sodium Chloride) 545 mls @ 200 mls/hr IV NOW ONE Stop: 12/20/19 16:42 Last Admin: 12/20/19 14:59 Dose: 200 mls/hr Documented by: [id number] Magnesium Sulfate/Dextrose (Magnesium Sulfate / D5w) 1 gm in 100 mls @ 100 mls/hr IV NOW STA Stop: 12/20/19 16:01 Last Admin: 12/20/19 15:13 Dose: 100 mls/hr Documented by: [id number] Ioversol (Ioversol 100ml) 94 ml IV ONCE ONE Stop: 12/20/19 15:50 Last Admin: 12/20/19 15:50 Dose: 94 ml Documented by: [id number] Imaging Data Radiologist's Impression: XR chest 1V portable HISTORY: 73 years-old Female SEPSIS COMPARISON: Chest radiograph 09/08/2019 TECHNIQUE: Portable AP view the chest FINDINGS: Cardiomediastinal and hilar silhouettes are within normal limits. No pneumothorax, pleural effusion, airspace consolidation or overt pulmonary edema. Probable nipple shadow projects of the left lung base. Bones appear grossly intact. IMPRESSION: No acute process. CT SCAN OF THE LEFT TIBIA AND FIBULA WITH IV CONTRAST CLINICAL HISTORY: Left leg erythema and swelling. Cat-bite injury. COMPARISON STUDY: No priors. TECHNIQUE: Following the IV administration of 94 cc of Optiray 320, CT scan of the left tibia and fibula is performed from the distal femur to the ankle. Images are reviewed in the axial, sagittal, and coronal planes. IV contrast was administered without complication. A dose lowering technique was utilized adhering to the principles of ALARA. Note that interpretation is suboptimal without plain film correlate. There is streak artifact from a left knee arthroplasty. CT DOSE: 367.95 mGy.cm. FINDINGS: The skeletal structures are osteopenic. There is no evidence of tibial or fibular fracture. There is no bony erosion or periostitis. A left knee arthroplasty is in place. This degrades assessment of the proximal tibia and fibula. There is superficial and deep soft tissue edema identified throughout the left lower extremity, greatest in the mid to distal calf. There is subcutaneous fluid with no organized/peripherally enhancing fluid collection identified. No subcutaneous gas is seen. There is tendinopathy and calcification of the Achilles tendon. There is atherosclerotic calcification of the calf arteries. The vessels are patent as imaged. Arthritic change is partially seen in the hindfoot. The regional musculature shows generalized atrophy. Superficial venous varicosities are seen medially. IMPRESSION: 1. No bony abnormality is seen involving the left tibia or fibula. 2. Soft tissue edema and subcutaneous fluid is noted as above. This likely represents cellulitis and clinical correlation will be required. 3. There is no organized/drainable fluid collection to suggest abscess. No soft tissue gas is seen. 4. There is advanced tendinopathy and calcification of the Achilles tendon. Discharge Plan Visit Data Chief Complaint: Animal Bite ED Provider: Kyle Hatch Discharge Problem: Cellulitis of left leg, Cat bite, Leukocytosis, Vomiting, Hypomagnesemia Patient Disposition: Admitted As Inpatient Condition: Fair Forms Stand Alone Forms: [facility] Prescriptions Prescriptions: No Action omeprazole 40 mg capsule,delayed release(DR/EC) 40 mg PO QAM RF: 0 celecoxib [Celebrex] 200 mg capsule 200 mg PO QAM RF: 0 prednisone 5 mg tablet 5 mg PO QAM RF: 0 nadolol 20 mg tablet 20 mg PO QAM RF: 0 amlodipine 5 mg tablet 5 mg PO QAM RF: 0 ondansetron HCl [Zofran] 4 mg tablet 4 mg PO Q8H PRN (Reason: nausea and vomiting) Qty: 20 RF: 0 methylprednisolone 4 mg tablets,dose pack 4 mg PO UD Qty: 1 RF: 0 hydrocodone-acetaminophen [[place]] 5-325 mg tablet 1 tab PO Q6H PRN (Reason: pain) Qty: 30 RF: 0 ondansetron HCl [Zofran] 4 mg tablet 4 mg PO Q8H PRN (Reason: nausea and vomiting) Qty: 24 RF: 0 docusate sodium [Colace] 100 mg capsule 100 mg PO BID PRN (Reason: Constipation) RF: 0 duloxetine 60 mg capsule,delayed release(DR/EC) 60 mg PO QAM RF: 0 oxycodone 5 mg Tablet 5 mg PO Q4H PRN (Reason: pain) Qty: 30 RF: 0 amoxicillin 500 mg Capsule See Rx Instructions .ROUTE .COMPLEX RF: 0 famotidine 20 mg tablet 20 mg PO BID RF: 0 gabapentin 300 mg capsule 300 mg PO TID RF: 0 furosemide 20 mg tablet 40 mg PO QAM RF: 0 Referrals Referrals: Kerrie Miranda MD [Primary Care Provider] - Discharge Problem: Cat bite Qualifiers: Encounter type: initial encounter Qualified Code(s): W55.01XA - Bitten by cat, initial encounter Leukocytosis Qualifiers: Leukocytosis type: unspecified Qualified Code(s): D72.829 - Elevated white blood cell count, unspecified Vomiting Qualifiers: Vomiting type: unspecified Vomiting Intractability: non-intractable Nausea presence: with nausea Qualified Code(s): R11.2 - Nausea with vomiting, unspecified
[2019-12-20 14:33] LABS: Basophils # (auto) 0.01 K/uL (0-0.2); Basophils % (auto) 0.1 %; Eosinophils # (auto) 0.02 K/uL (0-0.5); Eosinophils % (auto) 0.2 %; Hematocrit (blood only) 42.7 % (37-47); Hemoglobin 14.4 g/dL (12.0-16.0); Immature Granulocytes # (auto) 0.04 K/uL (0.00-0.02); Immature Granulocytes % (auto) 0.3 %; Lymphocytes # (auto) 0.92 K/uL (1.2-3.4); Lymphocytes % (auto) 7.5 %; Mean Corpuscular Hemoglobin 32.4 pg (25-34); Mean Corpuscular Hgb Conc 33.7 g/dL (32-36); Mean Platelet Volume 10.8 fL (7.4-10.4); Monocytes % (auto) 8.1 %; Neutrophils # (auto) 10.33 K/uL (1.4-6.5); Neutrophils % (auto) 83.8 %; Platelet Count 186 K/uL (130-400); RDW Coefficient of Variation 14.6 % (11.5-14.5); RDW Standard Deviation 51.4 fL (36.4-46.3); Red Blood Count 4.45 M/uL (4.2-5.4); White Blood Count 12.32 K/uL (4.8-10.8)
--- NOTE | 2019-12-20 14:39 | Electrocardiogram Report ---
Test Reason : Blood Pressure : / mmHG Vent. Rate : 084 BPM Atrial Rate : 084 BPM P-R Int : 192 ms QRS Dur : 088 ms QT Int : 354 ms P-R-T Axes : 018 -30 -04 degrees QTc Int : 418 ms Normal sinus rhythm Left axis deviation Moderate voltage criteria for LVH, may be normal variant Abnormal ECG When compared with ECG of 08-SEP-2019 13:21, Nonspecific T wave abnormality now evident in Anterior leads Confirmed by Femi Fulton ([id number]) on 12/20/2019 2:38:58 PM Referred By: REFERRED SELF Confirmed By:Femi Fulton
[2019-12-20 14:46] LABS: INR 1.2 (0.9-1.1); Partial Thromboplastin Ratio 1.1; Partial Thromboplastin Time 31.2 Seconds (21.0-31.0)
[2019-12-20 14:59] LABS: Albumin Level 2.8 gm/dl (3.4-5.0); BUN Creatinine Ratio 17.7 (10-20); Calcium 9.1 mg/dl (8.5-10.1); Creatinine Clr Calc Pharmacy 50.8 ml/min; Est GFR (African American) 57.1; Est GFR (Non-African American) 49.2; Magnesium 1.5 mg/dl (1.8-2.4); Potassium 4.3 mmol/L (3.5-5.1)
[2019-12-20 15:02] LABS: Albumin Globulin Ratio 0.9 (0.9-2); Bilirubin,Total 1.6 mg/dl (0.2-1); Total Protein 5.8 gm/dl (6.4-8.2)
[2019-12-20] MEDS ORDERED: MAGNESIUM SULFATE / D5W 1 GM/100 ML BAG IV STA (15:02)
--- NOTE | 2019-12-20 15:07 | XRay Report ---
XR chest 1V portable HISTORY: 73 years-old Female SEPSIS COMPARISON: Chest radiograph 09/08/2019 TECHNIQUE: Portable AP view the chest FINDINGS: Cardiomediastinal and hilar silhouettes are within normal limits. No pneumothorax, pleural effusion, airspace consolidation or overt pulmonary edema. Probable nipple shadow projects of the left lung bas e. Bones appear grossly intact. IMPRESSION: No acute process. ACT 112: Negative or not required by law. The above report was generated using voice recognition software. It may contain grammatical, syntax o r spelling errors. Electronically signed by: Demarco Davis M.D. 12/20/2019 3:05 PM
[2019-12-20] MEDS ORDERED: IOVERSOL 100ml IV ONE (15:49)
--- NOTE | 2019-12-20 16:21 | CT Scan Report ---
CT SCAN OF THE LEFT TIBIA AND FIBULA WITH IV CONTRAST CLINICAL HISTORY: Left leg erythema and swelling. Cat-bite injury. COMPARISON STUDY: No priors. TECHNIQUE: Following the IV administration of 94 cc of Optiray 320, CT scan of the left tibia and fib garry is performed from the distal femur to the ankle. Images are reviewed in the axial, sagittal, and coronal planes. IV contrast was administered without complication. A dose lowering technique was util ized adhering to the principles of ALARA. Note that interpretation is suboptimal without plain film c orrelate. There is streak artifact from a left knee arthroplasty. CT DOSE: 367.95 mGy.cm. FINDINGS: The skeletal structures are osteopenic. There is no evidence of tibial or fibular fracture. There is no bony erosion or periostitis. A left knee arthroplasty is in place. This degrades assessm ent of the proximal tibia and fibula. There is superficial and deep soft tissue edema identified thro ughout the left lower extremity, greatest in the mid to distal calf. There is subcutaneous fluid with no organized/peripherally enhancing fluid collection identified. No subcutaneous gas is seen. There is tendinopathy and calcification of the Achilles tendon. There is atherosclerotic calcification of t he calf arteries. The vessels are patent as imaged. Arthritic change is partially seen in the hindfoo t. The regional musculature shows generalized atrophy. Superficial venous varicosities are seen media lly. IMPRESSION: 1. No bony abnormality is seen involving the left tibia or fibula. 2. Soft tissue edema and subcutaneous fluid is noted as above. This likely represents cellulitis and clinical correlation will be required. 3. There is no organized/drainable fluid collection to suggest abscess. No soft tissue gas is seen. 4. There is advanced tendinopathy and calcification of the Achilles tendon. ACT 112: Negative or not required by law. Dictated: 12/20/2019 3:51 PM Transcribed: 12/20/2019 4:03 PM Ariana [id number] [id number] Electronically signed by: Kyle Charles M.D. 12/20/2019 4:20 PM
--- NOTE | 2019-12-20 16:58 | History & Physical Report ---
Date of Service December 20, 2019 Assessment & Plan (1) Cat bite: (2) Cellulitis of left leg: This is a 73-year-old female with PMH of anxiety, depression, GAITAN cirrhosis, non-Hodgkin's lymphoma s/p chemo and radiation in remission and other medical problems listed below who presents with left lower extremity redness x 3 days. -Cat bite 3 days prior now with cellulitis from ankle to mid proximal thigh -Afebrile with vital signs in normal range. Mild leukocytosis of 12.32, lactic acid elevation of 2.9 and procalcitonin 0.61 -Lower extremity CT with soft tissue edema and subcutaneous fluid. No organized/drainable fluid collection to suggest abscess. No soft tissue gas is seen. No evidence of DVT on LLE venous doppler -Wound and blood cultures ordered. Given empiric dose of Unasyn and Vanco. Will continue antibiotic coverage with Zosyn and vanc -History of L TKA in September by Dr. Parekh. Consider ortho consult if cellulitis does not improve with IV antibiotics -Continue gentle IV fluids. Repeat lactic acid pending (3) Hypertension: Normotensive. Continue amlodipine, nadolol (4) GERD (gastroesophageal reflux disease): (5) Barretts esophagus: Continue Pepcid, Protonix (6) Depression: (7) Anxiety: Continue Cymbalta (8) Non-Hodgkin lymphoma: S/p chemo and XRT, in remission DVT Ppx: SQ heparin Code status: FULL PCP: Ruth Dispo: [facility]. Plan to return home once medically stable. Patient seen in collaboration with Dr. Camarena. Please see addendum. History of Present Illness Chief Complaint: Cat bite, left lower extremity swelling Primary Care Provider: Kerrie Miranda MD This is a 73-year-old female with PMH of anxiety, depression, GAITAN cirrhosis, non-Hodgkin's lymphoma s/p chemo and radiation in remission and other medical problems listed below who presents with left lower extremity redness x 3 days. On Friday, patient's cat bit her twice on her left govea. Yesterday, patient started to notice redness surrounding the bite from ankle bone up to knee. As of today, leg was more swollen and redness had continue to expand above knee to mid thigh. Patient also noticed some drainage from areas of bite. Came to ED for further evaluation. Area is painful to touch and with ambulation, especially L calf. Endorses chills and headache and one episode of vomiting this morning. Denies any fever, lightheadedness, confusion, myalgias, chest pain, palpitations, abdominal pain, dysuria, diarrhea or constipation. Of note, patient also with history of left knee replacement with prosthesis 3 months ago. In ED, patient is afebrile with stable vital signs. Mild leukocytosis of 12.32, lactic acid elevation of 2.9 and procalcitonin 0.61. Lower extremity CT with soft tissue edema and subcutaneous fluid. No organized/drainable fluid collection to suggest abscess. No soft tissue gas is seen. Allergies Allergy/AdvReac Type Severity Reaction Status Date / Time latex Allergy Mild RASH Verified 12/20/19 18:07 NSAIDS (Non-Steroidal AdvReac Intermediate steinberg's Verified 12/20/19 18:07 Anti-Inflamma esophagus Dyazide AdvReac Mild reaction Verified 08/26/17 08:15 unknown hydrochlorothiazide AdvReac Mild reaction Verified 12/20/19 18:07 unknown triamterene AdvReac Mild reaction Verified 12/20/19 18:07 unknown Home Medications Home Medications Medication Instructions Recorded Confirmed Type amoxicillin 20,000 mg PO .PRN/UD 07/24/18 12/20/19 History amlodipine 5 mg tablet 5 mg PO QAM 10/08/18 12/20/19 History celecoxib 200 mg capsule 200 mg PO QAM 10/08/18 12/20/19 History nadolol 20 mg tablet 20 mg PO QAM 10/08/18 12/20/19 History omeprazole 40 mg capsule,delayed 40 mg PO QAM 10/08/18 12/20/19 History release famotidine 20 mg PO BID 06/16/19 12/20/19 History furosemide 40 mg PO QAM PRN 06/16/19 12/20/19 History gabapentin 300 mg PO TID 06/16/19 12/20/19 History docusate sodium [Colace] 100 mg PO BID PRN 09/02/19 12/20/19 History duloxetine 60 mg PO QAM 09/02/19 12/20/19 History ondansetron HCl 4 mg tablet 4 mg PO Q8H PRN #20 tab 10/04/19 12/20/19 Rx cholecalciferol (vitamin D3) 25 mcg PO DAILY 12/20/19 12/20/19 History loperamide 2 mg PO QID PRN 12/20/19 12/20/19 History Past Med/Surg History Medical History (Updated 12/20/19 @ 20:16 by Rox Stanford PA-C) Anxiety Barretts esophagus Breast cancer Left side initially- lumpectomy- no chemo/XRT; right side later dx'ed - had partial mastectomy- s/p XRT /possibly chemo- no current issues Cirrhosis Non-alcoholic Depression Fatty liver GERD (gastroesophageal reflux disease) Well controlled and stable Hypertension Non-Hodgkin lymphoma chemo/radiation- currently remission Osteoarthritis Rotator cuff arthropathy of right shoulder Skin cancer Surgical History (Updated 12/20/19 @ 20:16 by Rox Stanford PA-C) H/O Mohs micrographic surgery for skin cancer Removed from top of head History of anesthesia reaction slow to wake up History of appendectomy History of cholecystectomy History of colonoscopy History of esophagogastroduodenoscopy (EGD) History of hysterectomy HAL History of left knee replacement History of partial mastectomy of right breast with lymph node removal History of right knee joint replacement S/P lumpectomy, left breast Family History Other Cancer Diabetes Heart disease No family history of adverse response to anesthesia Social History Smoking Status: Never smoker Second Hand Exposure: No; Hx Alcohol Use: No Hx Substance Use: No Preferred Language: Spanish Communication Ability: Effective Reliability Technician Required: No Beliefs That Will Affect Care: None marital status: Current Living Situation: Spouse Current Living Situation Comment: and son Feels Safe at Home: Yes Safety Concerns: Feels Safe At This Time Assistive Devices: None Review of Systems Review of Systems: At least ten systems reviewed and negative except as noted in the HPI. Physical Exam Physical Exam: General Appearance: WD/WN, vitals as above, NAD, sitting up in bed, pleasant, conversing easily Head: normocephalic, atraumatic Eyes: normal inspection, PERRL, conjunctivae normal, anicteric sclerae ENT: external ear and nose normal, oropharynx normal Neck: normal visual inspection, trachea midline, no thyromegaly Respiratory: normal respiratory effort, lungs clear to auscultation, no wheeze, rales, rhonchi. No accessory muscle use Cardiovascular: regular rate, rhythm, no murmur, normal peripheral pulses, no BLE edema. Vessels: no JVD Chest: normal inspection of chest Abdomen/GI: normal bowel sounds, soft, nontender, no hepatosplenomegaly Extremities/Musculoskeletal: no cyanosis or clubbing, extremities motor strength 5/5. + LLE with two separate puncture wounds noted on anterior and lateral aspect of govea with mild serous drainage with erythema and edema extending down to ankle and up to mid-point of proximal thigh. Tender to palpation. No crepitus. Distal pulses intact Neurologic: PERRL, EOMI, accommodation nl, no face palsy, no dysarthria, CN's II-XI intact bilaterally and moves all extremities Psychiatric: A+Ox3, euthymic affect Skin: no rashes, normal color, warm/dry. See MSK section Results & Data Results & Data ([facility]) Vital Signs (Past 12 Hours) Vital Signs Temp Pulse Pulse Resp BP BP Pulse Ox 12/20/19 15:04 72 18 113/54 L 94 12/20/19 14:23 97 12/20/19 13:37 37.0 C 83 18 128/72 95 Laboratory Results Short CBC 12/20/19 12/20/19 12/20/19 Range/Units 14:21 14:21 14:21 WBC 12.32 H (4.8-10.8) K/uL RBC 4.45 (4.2-5.4) M/uL Hgb 14.4 (12.0-16.0) g/dL Hct 42.7 (37-47) % MCV 96.0 (80-100) fL MCH 32.4 (25-34) pg MCHC 33.7 (32-36) g/dL RDW Std Deviation 51.4 H (36.4-46.3) fL RDW Coeff of Gerry 14.6 H (11.5-14.5) % Plt Count 186 (130-400) K/uL MPV 10.8 H (7.4-10.4) fL Immature Gran % (Auto) 0.3 % Neut % (Auto) 83.8 % Lymph % (Auto) 7.5 % Carver % (Auto) 8.1 % Eos % (Auto) 0.2 % Baso % (Auto) 0.1 % Neut # (Auto) 10.33 H (1.4-6.5) K/uL Lymph # (Auto) 0.92 L (1.2-3.4) K/uL Carver # (Auto) 1.00 H (0.11-0.59) K/uL Eos # (Auto) 0.02 (0-0.5) K/uL Baso # (Auto) 0.01 (0-0.2) K/uL Immature Gran # (Auto) 0.04 H (0.00-0.02) K/uL PT 13.0 H (9.0-12.0) Seconds INR 1.2 H (0.9-1.1) APTT 31.2 H (21.0-31.0) Seconds PTT Ratio 1.1 Sodium (136-145) mmol/L Potassium (3.5-5.1) mmol/L Chloride (98-107) mmol/L Carbon Dioxide (21-32) mmol/L Anion Gap (3-11) BUN (7-18) mg/dl Creatinine (0.6-1.2) mg/dl Est Cr Clr Drug Dosing ml/min Est GFR ( Amer) Est GFR (Non-Af Amer) BUN/Creatinine Ratio (10-20) Glucose (70-99) mg/dl Lactate (0.4-2.0) mmol/L Calcium (8.5-10.1) mg/dl Magnesium (1.8-2.4) mg/dl Total Bilirubin (0.2-1) mg/dl AST (15-37) U/L ALT (12-78) U/L Alkaline Phosphatase (45-117) U/L Total Protein (6.4-8.2) gm/dl Albumin (3.4-5.0) gm/dl Globulin (2.5-4.0) gm/dl Albumin/Globulin Ratio (0.9-2) Procalcitonin 0.61 H (0-0.5) ng/ml 12/20/19 12/20/19 12/20/19 Range/Units 14:21 14:40 16:56 WBC (4.8-10.8) K/uL RBC (4.2-5.4) M/uL Hgb (12.0-16.0) g/dL Hct (37-47) % MCV (80-100) fL MCH (25-34) pg MCHC (32-36) g/dL RDW Std Deviation (36.4-46.3) fL RDW Coeff of Gerry (11.5-14.5) % Plt Count (130-400) K/uL MPV (7.4-10.4) fL Immature Gran % (Auto) % Neut % (Auto) % Lymph % (Auto) % Carver % (Auto) % Eos % (Auto) % Baso % (Auto) % Neut # (Auto) (1.4-6.5) K/uL Lymph # (Auto) (1.2-3.4) K/uL Carver # (Auto) (0.11-0.59) K/uL Eos # (Auto) (0-0.5) K/uL Baso # (Auto) (0-0.2) K/uL Immature Gran # (Auto) (0.00-0.02) K/uL PT (9.0-12.0) Seconds INR (0.9-1.1) APTT (21.0-31.0) Seconds PTT Ratio Sodium 138 (136-145) mmol/L Potassium 4.3 (3.5-5.1) mmol/L Chloride 105 (98-107) mmol/L Carbon Dioxide 28 (21-32) mmol/L Anion Gap 5.0 (3-11) BUN 20 H (7-18) mg/dl Creatinine 1.11 (0.6-1.2) mg/dl Est Cr Clr Drug Dosing 50.8 ml/min Est GFR ( Amer) 57.1 Est GFR (Non-Af Amer) 49.2 BUN/Creatinine Ratio 17.7 (10-20) Glucose 194 H (70-99) mg/dl Lactate 2.9 H* 2.5 H* (0.4-2.0) mmol/L Calcium 9.1 (8.5-10.1) mg/dl Magnesium 1.5 L (1.8-2.4) mg/dl Total Bilirubin 1.6 H (0.2-1) mg/dl AST 34 (15-37) U/L ALT 41 (12-78) U/L Alkaline Phosphatase 116 (45-117) U/L Total Protein 5.8 L (6.4-8.2) gm/dl Albumin 2.8 L (3.4-5.0) gm/dl Globulin 3.0 (2.5-4.0) gm/dl Albumin/Globulin Ratio 0.9 (0.9-2) Procalcitonin (0-0.5) ng/ml BMP 12/20/19 14:21 Sodium 138 Potassium 4.3 Chloride 105 Carbon Dioxide 28 BUN 20 H Creatinine 1.11 Glucose 194 H Calcium 9.1 Liver Function 12/20/19 Range/Units 14:21 Total Bilirubin 1.6 H (0.2-1) mg/dl AST 34 (15-37) U/L ALT 41 (12-78) U/L Alkaline Phosphatase 116 (45-117) U/L Albumin 2.8 L (3.4-5.0) gm/dl Diagnostic Findings CXR: IMPRESSION: No acute process. LE CT: IMPRESSION: 1. No bony abnormality is seen involving the left tibia or fibula. 2. Soft tissue edema and subcutaneous fluid is noted as above. This likely represents cellulitis and clinical correlation will be required. 3. There is no organized/drainable fluid collection to suggest abscess. No soft tissue gas is seen. 4. There is advanced tendinopathy and calcification of the Achilles tendon. LLE Venous doppler: IMPRESSION: There is no sonographic evidence of deep venous thrombosis identified in the left lower extremity. ECG Rhythm: normal sinus Findings: + left axis deviation Supervising Physician Co-Signing Physician Notes Pt was seen and examined. Agreed with Rox WEN exam, assessment and plan. 73-year-old female with PMH of anxiety, depression, GAITAN cirrhosis, non- Hodgkin's lymphoma s/p chemo and radiation in remission presented to the ER with left lower extremity redness x 3 days. Pt said that her cat bit her on her left govea area. She said that today the redness and swelling worsening. She said that her left LE is very tender. Patient also noticed some drainage from areas of bite. she said that LLE pain worsening with ambulation. She said that she had some chills, headache and vomiting this morning. Denies any fever, lightheadedness, confusion, myalgias, chest pain, palpitations, abdominal pain, dysuria, diarrhea or constipation. CT LLE showed soft tissue edema and subcutaneous fluid. No organized/drainable fluid collection to suggest abscess. No soft tissue gas is seen. Venous of doppler of LLE showed no sonographic evidence of deep venous thrombosis identified in the left lower extremity. Leukocytosis of 12.32, lactic acid elevation of 2.9 and procalcitonin 0.61. Received IV Unasyn and Vanco in the ER. Will change Unasyn to Zosyn and continue IV vanco. Blood cx and wound cx collected in the ER. Will repeat Lactic acid. Will monitor CBC. Continue monitor closely. MD Migue (1) Cat bite Encounter type: initial encounter Qualified Code(s): W55.01XA - Bitten by cat, initial encounter
[2019-12-20] MEDS ORDERED: CONSULT PHARMACY STA (19:15)
--- NOTE | 2019-12-20 19:53 | Ultrasound Report ---
ULTRASOUND LEFT LOWER EXTREMITY VENOUS CLINICAL HISTORY: Left leg pain, swelling, and erythema. COMPARISON STUDY: Left lower extremity venous ultrasound dated 09/30/2019. TECHNIQUE: Real-time, grayscale, and color Doppler sonography of the deep veins of the left lower ext remity was performed from the inguinal crease to the calf. Compression and augmentation were utilized . FINDINGS: There is no sonographic evidence of deep venous thrombosis identified in the left lower ext remity. The common femoral, superficial femoral, and popliteal veins are patent and normally compress ible. The greater saphenous vein and the profunda femoris vein at the junction with the common femora l vein are clear. The visualized calf veins are patent. Soft tissue edema is noted in the left leg. IMPRESSION: There is no sonographic evidence of deep venous thrombosis identified in the left lower e xtremity. ACT 112: Negative or not required by law. Electronically signed by: Kyle Charles M.D. 12/20/2019 7:52 PM
[2019-12-20] MEDS ORDERED: LOPERAMIDE HCL 2 MG CAP PO PRN (20:00)
[2019-12-20] MEDS ORDERED: DOCUSATE SODIUM 100 MG CAP PO PRN (20:00)
[2019-12-20] MEDS ORDERED: ACETAMINOPHEN 500 MG TAB PO PRN (20:02)
[2019-12-20] MEDS ORDERED: ACETAMINOPHEN 325 MG TAB PO PRN (20:20)
[2019-12-20] MEDS ORDERED: POLYETHYLENE (MIRALAX) 17 GM PACK PO PRN (20:20)
[2019-12-20] MEDS ORDERED: ONDANSETRON INJ 2 MG/ML 2 ML VIAL IV PRN (20:20)
[2019-12-20] MEDS: SODIUM CHLORIDE 0.9% 1000ML 1,000 ML IV SCH (20:36)
[2019-12-20] MEDS ORDERED: PIPERACILL/TAZOBAC CONSULT ACTIVE PRN (20:58)
[2019-12-20] MEDS ORDERED: PIPERACILLIN/TAZOBACTAM 4.5 GM in DEXTROSE 5% 100 ML IV ONE (21:00)
[2019-12-20] MEDS: FAMOTIDINE 20 MG TAB PO SCH (21:27)
[2019-12-20] MEDS: GABAPENTIN 300 MG CAP PO SCH (21:27)
[2019-12-20] MEDS: HEPARIN SOD 5,000 UNIT/0.5 ML VIAL SQ SCH (21:28)
[2019-12-21] MEDS: PIPERACILLIN/TAZOBACTAM 3.375 GM in DEXTROSE 5% 100 ML IV SCH ×3 (01:33→18:50)
[2019-12-21] MEDS: SODIUM CHLORIDE 0.9% 1000ML 1,000 ML IV SCH ×3 (03:07→23:16)
[2019-12-21] MEDS ORDERED: VANCOMYCIN HCL 1,000 MG in SODIUM CHLORIDE 0.9% 250 ML IV SCH (04:00)
[2019-12-21 05:02] LABS: Hematocrit (blood only) 38.2 % (37-47); Hemoglobin 12.9 g/dL (12.0-16.0); Mean Corpuscular Hemoglobin 32.5 pg (25-34); Mean Corpuscular Hgb Conc 33.8 g/dL (32-36); Mean Corpuscular Volume 96.2 fL (80-100); Mean Platelet Volume 10.6 fL (7.4-10.4); Platelet Count 126 K/uL (130-400); RDW Coefficient of Variation 14.9 % (11.5-14.5); RDW Standard Deviation 52.2 fL (36.4-46.3); Red Blood Count 3.97 M/uL (4.2-5.4); White Blood Count 8.22 K/uL (4.8-10.8)
[2019-12-21] MEDS: HEPARIN SOD 5,000 UNIT/0.5 ML VIAL SQ SCH (05:24)
[2019-12-21 05:27] LABS: BUN Creatinine Ratio 22.3 (10-20); Calcium 8.3 mg/dl (8.5-10.1); Creatinine Clr Calc Pharmacy 62.5 ml/min; Est GFR (Non-African American) 63.8; Potassium 3.4 mmol/L (3.5-5.1)
[2019-12-21] MEDS: DULoxetine HCL 60 MG CAP PO SCH (08:09)
[2019-12-21] MEDS: GABAPENTIN 300 MG CAP PO SCH ×3 (08:09→21:27)
[2019-12-21] MEDS: CHOLECALCIFEROL 1,000 UNITS 25 MCG TAB PO SCH (08:10)
[2019-12-21] MEDS: PANTOprazole 40 MG TAB PO SCH (08:10)
[2019-12-21] MEDS: FAMOTIDINE 20 MG TAB PO SCH ×2 (08:10→21:27)
[2019-12-21] MEDS: amLODIPine BESYLATE 5 MG TAB PO SCH (08:10)
[2019-12-21] MEDS ORDERED: POTASSIUM CHLORIDE CRTAB 20 MEQ TABCR PO STA (08:20)
[2019-12-21] MEDS: nadoloL 40 MG TAB PO SCH (09:38)
[2019-12-21 10:37] LABS: Albumin Level 2.4 gm/dl (3.4-5.0); Bilirubin Direct 0.8 mg/dl (0-0.2); Bilirubin,Total 1.6 mg/dl (0.2-1); Magnesium 1.7 mg/dl (1.8-2.4); Total Protein 5.1 gm/dl (6.4-8.2)
[2019-12-21] MEDS: traMADol HCL 50 MG TABLET PO PRN ×2 (10:54→23:16)
[2019-12-21] MEDS: VANCOMYCIN HCL 1,250 MG in SODIUM CHLORIDE 0.9% 250 ML IV SCH (17:39)
--- NOTE | 2019-12-21 18:49 | CT Scan Report ---
CT tib/fib LT wo con CT DOSE: 423.30 mGy.cm CLINICAL HISTORY: leg cellulitis, r/o fluid collection TECHNIQUE: Helical images were acquired in the transverse plane. Sagittal and coronal reformatted markell ges were acquired. A dose lowering technique was utilized adhering to the principles of ALARA. COMPARISON STUDY: 12/21/2019 FINDINGS: There is artifact from a total left knee arthroplasty. No acute fractures are visualized. There are vascular calcifications present. There is diffuse cutaneous and subcutaneous edema. There are no fluid collections to indicate an abscess. There is no gas present within the soft tissue s. There is calcific Achilles tendinopathy IMPRESSION: 1. No acute fractures 2. No evidence of osteomyelitis 3. Cutaneous and subcutaneous edema 4. There are no fluid collections suspicious for abscess 5. Calcific Achilles tendinopathy ACT 112: Negative or not required by law. Electronically signed by: Geovanny Harrington M.D. 12/21/2019 6:47 PM
--- NOTE | 2019-12-21 19:36 | Hospitalist Progress Note ---
Date of Service December 21, 2019 Assessment & Plan (1) Cat bite: (2) Cellulitis of left leg: Per admitting service notes: This is a 73-year-old female with PMH of anxiety, depression, GAITAN cirrhosis, non-Hodgkin's lymphoma s/p chemo and radiation in remission and other medical problems listed below who presents with left lower extremity redness x 3 days. -Cat bite 3 days prior now with cellulitis from ankle to mid proximal thigh -Afebrile with vital signs in normal range. Mild leukocytosis of 12.32, lactic acid elevation of 2.9 and procalcitonin 0.61 -Lower extremity CT with soft tissue edema and subcutaneous fluid. No organized/drainable fluid collection to suggest abscess. No soft tissue gas is seen. No evidence of DVT on LLE venous doppler -Afebrile, leukocytosis improving -Wound and blood cultures pending -Increased edema and redness noted Repeat CT of the lower extremity: No fluid collection or abscess noted -Continue empiric vancomycin and Zosyn -Consider orthopedic service consulted as patient had left total knee arthroplasty last September 2019 -Monitor closely (3) Hypertension: Normotensive. Continue amlodipine, nadolol (4) GERD (gastroesophageal reflux disease): (5) Barretts esophagus: Continue Pepcid, Protonix (6) Depression: (7) Anxiety: Continue Cymbalta (8) Non-Hodgkin lymphoma: S/p chemo and XRT, in remission DVT Ppx: SQ heparin Code status: FULL PCP: Ruth Dispo: Anticipate discharge home medically stable Plan of care discussed with patient and her significant other in detail at length All questions were answered They are understanding, agreeable, and comfortable with the plan of care Admission and Anticipated Discharge Date Admission Date: December 20, 2019 Subjective Follow-up for infected cat bite wound, cellulitis of the left lower leg Seen sitting up in bed, comfortable, not in distress Patient's significant other at the bedside visiting States leg pain and swelling still about the same as yesterday Redness has not exceeded the borders of the demarcation line, but redness has increased Denies fevers, chills, nausea vomiting, headache Denies shortness of breath, chest pain, palpitations, dizziness No other symptoms Review of Systems Review of Systems: All systems reviewed & are unremarkable except as noted in Subjective Physical Exam Physical Exam: General- oriented x 3, not in distress, speaks in sentences with no effort or accessory muscle use Head- atraumatic Eyes- PERRL, EOMI, anicteric ENT- oropharynx clear Neck- supple, no JVD, no adenopathy, no thyromegaly; carotids +2/2, no bruits appreciated Lungs- clear to auscultation bilaterally, no rales/wheezes Heart- normal rate, regular rhythm; no murmur, no gallop, no rub appreciated Abdomen- normal bowel sounds, nondistended, soft, nontender, no masses or hepatosplenomegaly Extremities- Right lower extremity: Essentially normal Left lower extremity: Significant edema from the ankle up to the mid thigh, deep erythema contained within the demarcation line Positive mild warmth, mild tenderness Small wounds in the anterior govea area, with no active discharge or bleeding Good pedal pulses Neuro- alert, oriented x 3; CN 2-12 grossly intact; motor 5/5 bilaterally;sensation 100% on all extremities; no other gross focal neurologic deficits Skin- warm & dry Results & Data Results & Data ([facility]) Vital Signs (Past 12 Hours) Vital Signs Temp Pulse Pulse Pulse Resp BP Pulse Ox 12/21/19 15:37 36.5 C 85 74 18 112/68 94 12/21/19 11:38 36.6 C 74 18 135/83 96 12/21/19 07:47 36.6 C 86 16 112/67 96 Laboratory Results Laboratory Results - last 24 hr 12/20/19 12/20/19 12/21/19 21:46 23:44 04:52 WBC 8.22 RBC 3.97 L Hgb 12.9 Hct 38.2 MCV 96.2 MCH 32.5 MCHC 33.8 RDW Std Deviation 52.2 H RDW Coeff of Gerry 14.9 H Plt Count 126 L MPV 10.6 H Sodium Potassium Chloride Carbon Dioxide Anion Gap BUN Creatinine Est Cr Clr Drug Dosing Est GFR ( Amer) Est GFR (Non-Af Amer) BUN/Creatinine Ratio Glucose Lactate 2.6 H* 2.2 H* Calcium Magnesium Total Bilirubin Direct Bilirubin AST ALT Alkaline Phosphatase Total Protein Albumin 12/21/19 12/21/19 12/21/19 04:52 04:52 09:29 WBC RBC Hgb Hct MCV MCH MCHC RDW Std Deviation RDW Coeff of Gerry Plt Count MPV Sodium 140 Potassium 3.4 L D Chloride 108 H Carbon Dioxide 26 Anion Gap 6.0 BUN 20 H Creatinine 0.89 Est Cr Clr Drug Dosing 62.5 Est GFR ( Amer) 74.0 Est GFR (Non-Af Amer) 63.8 BUN/Creatinine Ratio 22.3 H Glucose 136 H Lactate 1.5 Calcium 8.3 L Magnesium 1.7 L Total Bilirubin 1.6 H Direct Bilirubin 0.8 H AST 25 ALT 33 Alkaline Phosphatase 103 Total Protein 5.1 L Albumin 2.4 L (1) Cat bite Encounter type: initial encounter Qualified Code(s): W55.01XA - Bitten by cat, initial encounter
[2019-12-21] MEDS: MAGNESIUM OXIDE 400 MG TAB PO SCH (21:27)
[2019-12-22] MEDS: PIPERACILLIN/TAZOBACTAM 3.375 GM in DEXTROSE 5% 100 ML IV SCH ×3 (01:12→17:32)
[2019-12-22] MEDS: VANCOMYCIN HCL 1,250 MG in SODIUM CHLORIDE 0.9% 250 ML IV SCH ×2 (04:39→16:36)
[2019-12-22 07:17] LABS: BUN Creatinine Ratio 16.5 (10-20); Basophils # (auto) 0.01 K/uL (0-0.2); Basophils % (auto) 0.1 %; Creatinine Clr Calc Pharmacy 75.7 ml/min; Eosinophils # (auto) 0.04 K/uL (0-0.5); Eosinophils % (auto) 0.3 %; Est GFR (Non-African American) 78.5; Hemoglobin 13.6 g/dL (12.0-16.0); Immature Granulocytes # (auto) 0.03 K/uL (0.00-0.02); Immature Granulocytes % (auto) 0.3 %; Lymphocytes # (auto) 1.03 K/uL (1.2-3.4); Lymphocytes % (auto) 8.9 %; Magnesium 1.8 mg/dl (1.8-2.4); Mean Corpuscular Hemoglobin 32.2 pg (25-34); Mean Corpuscular Hgb Conc 33.2 g/dL (32-36); Mean Corpuscular Volume 96.9 fL (80-100); Mean Platelet Volume 11.1 fL (7.4-10.4); Monocytes # (auto) 1.31 K/uL (0.11-0.59); Monocytes % (auto) 11.3 %; Neutrophils # (auto) 9.16 K/uL (1.4-6.5); Neutrophils % (auto) 79.1 %; Platelet Count 198 K/uL (130-400); Potassium 3.9 mmol/L (3.5-5.1); RDW Coefficient of Variation 15.1 % (11.5-14.5); RDW Standard Deviation 53.7 fL (36.4-46.3); Red Blood Count 4.23 M/uL (4.2-5.4); White Blood Count 11.58 K/uL (4.8-10.8)
--- NOTE | 2019-12-22 07:50 | Pharmacy Report ---
Pharmacy Abx Dose Short Note - Date of Service December 22, 2019 - Assessment & Plan Assessment 74 year old F receiving vancomycin/Zosyn for treatment of cellulitis from cat bite Day # 2 of antimicrobial therapy. Plan Vancomycin Patient meets criteria for vancomycin AUC dosing nomogram AUC/MARYCRUZ is the preferred PK/PD target for vancomycin * Target AUC/MARYCRUZ = 400-600 * AUC guided dosing is effective and associated with decreased risk of nephrotoxicity Zosyn Zosyn 3.375 gm IV x 1 then Zosyn 3.375 gm IV q8 hours Pharmacy will continue to follow and will adjust dose/frequency as necessary. Thank you.
[2019-12-22] MEDS: GABAPENTIN 300 MG CAP PO SCH ×3 (08:41→20:31)
[2019-12-22] MEDS: amLODIPine BESYLATE 5 MG TAB PO SCH (08:41)
[2019-12-22] MEDS: DULoxetine HCL 60 MG CAP PO SCH (08:41)
[2019-12-22] MEDS: nadoloL 40 MG TAB PO SCH (08:41)
[2019-12-22] MEDS: MAGNESIUM OXIDE 400 MG TAB PO SCH ×2 (08:41→20:31)
[2019-12-22] MEDS: PANTOprazole 40 MG TAB PO SCH (08:42)
[2019-12-22] MEDS: CHOLECALCIFEROL 1,000 UNITS 25 MCG TAB PO SCH (08:42)
[2019-12-22] MEDS: ADVANCED PROBIOTIC 1250 MG CAPSULE PO SCH (08:42)
[2019-12-22] MEDS: FAMOTIDINE 20 MG TAB PO SCH ×2 (08:42→20:31)
--- NOTE | 2019-12-22 09:59 | Hospitalist Progress Note ---
Date of Service December 22, 2019 Assessment & Plan (1) Cat bite: (2) Cellulitis of left leg: Per admitting service notes: This is a 73-year-old female with PMH of anxiety, depression, GAITAN cirrhosis, non-Hodgkin's lymphoma s/p chemo and radiation in remission and other medical problems listed below who presents with left lower extremity redness x 3 days. -Cat bite 3 days prior now with cellulitis from ankle to mid proximal thigh -Afebrile with vital signs in normal range. Mild leukocytosis of 12.32, now 11.58, all Cultures NGTD -Lower extremity CT with soft tissue edema and subcutaneous fluid. No organized/drainable fluid collection to suggest abscess. No soft tissue gas is seen. No evidence of DVT on LLE venous doppler -Afebrile, leukocytosis improving -Continue empiric vancomycin and Zosyn -Orthopedic service consulted -Monitor closely (3) Hypertension: Normotensive. Continue amlodipine, nadolol (4) GERD (gastroesophageal reflux disease): (5) Barretts esophagus: Continue Pepcid, Protonix (6) Depression: (7) Anxiety: Continue Cymbalta (8) Non-Hodgkin lymphoma: s/p chemo and XRT, in remission DVT Ppx: SQ heparin Code status: FULL PCP: Ruth Dispo: Anticipate discharge home when medically stable ROS-No Headache, No Visual Changes, No Nausea, No Vomiting, No Fever, No Chills, No Neck Pain or Stiffness, No Chest Pain, No Palpitations, No SOB, No SEXTON, No Cough, No Sputum, No Wheezing, No Abdominal Pain, No Diarrhea, No Hematemesis, No Hemoptysis, No Unexpected Weight Loss, No Flank pain, No Melena, No Hematochezia, No Frequency, No Urgency, No Burning, No Hematuria, No Rashes, No Diaphoresis. Appetite is Normal, c/o sore LLE Physical Exam Gen-AAO x 3, NAD, Afebrile Head-NCAT, EOMI, PERRLA, Anicteric Sclera, No Posterior Pharyngeal Erythema Neck-Supple, No JVD, No Thyromegaly, No Masses, No LAD, No Bruits Lungs-Clear to Auscultation Bilaterally, No Rales, No Rhonchi, No Wheezing, No Crepitus Chest-No S4, +S1, +S2, No S3, No Murmurs, No Rubs, No Gallops, No Ectopy Abdomen-Soft, Bowel Sounds Present, Non Tender, Non Distended, No Hepatomegaly, No Splenomegaly, No Palpable Masses, No Rebound, No Rigidity, No Guarding Musculoskeletal-Full Range of Motion Bilaterally, No CVAT Extremities-Right LE Edema from the ankle up to the mid thigh, erythema contained within the demarcation line, tenderness, Small wounds in the anterior govea area, with no active discharge or bleeding, LLE wo CCE Nuero-Cranial Nerves II-XII grossly intact, Motor WNL, DTRs WNL, Strength WNL, Non Focal Psych-Normal Mood Admission and Anticipated Discharge Date Admission Date: December 20, 2019 Results & Data Results & Data ([facility]) Vital Signs (Past 12 Hours) Vital Signs Temp Pulse Pulse Resp BP Pulse Ox 12/22/19 07:34 81 12/22/19 07:24 36.7 C 90 18 126/72 96 12/22/19 03:13 36.9 C 88 16 125/74 93 12/21/19 23:57 37.2 C 83 18 144/80 H 97 12/21/19 22:20 100 H (1) Cat bite Encounter type: initial encounter Qualified Code(s): W55.01XA - Bitten by cat, initial encounter
--- NOTE | 2019-12-22 11:32 | Orthopedic Consultation ---
Date of Consultation December 22, 2019 Assessment & Plan (1) Cellulitis of left leg: Cellulitis due to cat bite with substantial lymphedema and swelling of the left lower extremity. Based on exam today, there is no concern for an acute process at the knee. I would not recommend aspirating. She needs strict elevation of the left lower extremity to attempt to reduce the amount of edema that is slowing her progress. Continue parenteral antibiotic therapy. We will continue to follow. History of Present Illness Attending Physician: Jose Carlos Vegas DO History of Present Illness 74-year-old female who underwent left total knee arthroplasty with Dr. Parekh in September 2019 was admitted to the hospital 2 days ago after a cat bite to her govea area. She subsequently developed significant redness and swelling and is progressive even with admission on IV antibiotics. She we are asked to evaluate the patient because the acuity of her total knee and the relationship of the overlying cellulitis. She denies any fevers chills today. She is concerned about the swelling. There is been significant drainage onto the dressings that are changing for her on her leg. Allergies Allergy/AdvReac Type Severity Reaction Status Date / Time latex Allergy Mild RASH Verified 12/20/19 18:07 NSAIDS (Non-Steroidal AdvReac Intermediate steinberg's Verified 12/20/19 18:07 Anti-Inflamma esophagus Dyazide AdvReac Mild reaction Verified 08/26/17 08:15 unknown hydrochlorothiazide AdvReac Mild reaction Verified 12/20/19 18:07 unknown triamterene AdvReac Mild reaction Verified 12/20/19 18:07 unknown Home Medications Home Medications Medication Instructions Recorded Confirmed Type amoxicillin 20,000 mg PO .PRN/UD 07/24/18 12/20/19 History amlodipine 5 mg tablet 5 mg PO QAM 10/08/18 12/20/19 History celecoxib 200 mg capsule 200 mg PO QAM 10/08/18 12/20/19 History nadolol 20 mg tablet 20 mg PO QAM 10/08/18 12/20/19 History omeprazole 40 mg capsule,delayed 40 mg PO QAM 10/08/18 12/20/19 History release famotidine 20 mg PO BID 06/16/19 12/20/19 History furosemide 40 mg PO QAM PRN 06/16/19 12/20/19 History gabapentin 300 mg PO TID 06/16/19 12/20/19 History docusate sodium [Colace] 100 mg PO BID PRN 09/02/19 12/20/19 History duloxetine 60 mg PO QAM 09/02/19 12/20/19 History ondansetron HCl 4 mg tablet 4 mg PO Q8H PRN #20 tab 10/04/19 12/20/19 Rx cholecalciferol (vitamin D3) 25 mcg PO DAILY 12/20/19 12/20/19 History loperamide 2 mg PO QID PRN 12/20/19 12/20/19 History Patient History Medical History Anxiety Barretts esophagus Breast cancer Left side initially- lumpectomy- no chemo/XRT; right side later dx'ed - had partial mastectomy- s/p XRT /possibly chemo- no current issues Cirrhosis Non-alcoholic Depression Fatty liver GERD (gastroesophageal reflux disease) Well controlled and stable Hypertension Non-Hodgkin lymphoma chemo/radiation- currently remission Osteoarthritis Rotator cuff arthropathy of right shoulder Skin cancer Surgical History H/O Mohs micrographic surgery for skin cancer Removed from top of head History of anesthesia reaction slow to wake up History of appendectomy History of cholecystectomy History of colonoscopy History of esophagogastroduodenoscopy (EGD) History of hysterectomy HAL History of left knee replacement History of partial mastectomy of right breast with lymph node removal History of right knee joint replacement S/P lumpectomy, left breast Family History Other Cancer Diabetes Heart disease No family history of adverse response to anesthesia Social History Smoking Status: Never smoker Second Hand Exposure: No; Hx Alcohol Use: No Hx Substance Use: No Preferred Language: Iranian Communication Ability: Effective Bus System Operator Required: No Beliefs That Will Affect Care: None marital status: Current Living Situation: Spouse Current Living Situation Comment: and son Feels Safe at Home: Yes Safety Concerns: Feels Safe At This Time Assistive Devices: None Review of Systems Review of Systems: All systems reviewed & are unremarkable except as noted in HPI & below Physical Exam Physical Exam: Left lower extremity: The dressing on her leg was slid down to reveal the punctate wounds on the pretibial area at the diaphyseal region. There is a separate lesion to the lateral soft tissues over the anterior compartment. There is drainage of the abundant yellow synovial fluid. There is no purulence. She is guarded but full motion to her ankle. She can perform straight leg raise at the knee. The knee has less soft tissue swelling about it. There is no prepatellar edema. There is mild palpable effusion. She does have diffuse tenderness about the medial lateral aspects of her knee but no pain on patellar compression. There is no posterior tenderness. There is erythema that extends from her ankle up to the middle aspect of her lateral thigh. Constitutional: well developed and well nourished; no acute distress and not intoxicated appearing ENMT: external ear and nose normal, oropharynx normal Respiratory: normal respiratory effort; no respiratory distress Cardiovascular: Extremities: normal capillary refill Skin: no rashes, warm and dry Psychiatric: A+Ox3, euthymic affect Results & Data ([facility]) Vital Signs (Past 12 Hours) Vital Signs Temp Pulse Pulse Resp BP Pulse Ox 12/22/19 11:00 36.6 C 76 18 152/81 H 98 12/22/19 07:34 81 12/22/19 07:24 36.7 C 90 18 126/72 96 12/22/19 03:13 36.9 C 88 16 125/74 93 12/21/19 23:57 37.2 C 83 18 144/80 H 97 Diagnostic Findings X-rays and CT of the left lower extremity were evaluated. There is abundant soft tissue edema but no focal fluid collections or abscesses. The total knee implant creates substantial artifact so it is difficult to evaluate for significant knee effusion. PG Care Time/CCT Total # of Minutes Spent Total Time Spent with Patient: Total time spent is greater than 50% in coordination of care (as documented) at patient's floor/unit and/or counseling patient: Coding Level of Care Code 32571 Initial Inpt Care Lvl 3 Diagnoses Cellulitis of left leg L03.116
[2019-12-22] MEDS ORDERED: KETOROLAC TROMETHAMINE 15 MG/ML VIAL IM PRN (12:56)
[2019-12-22] MEDS: ACETAMINOPHEN 500 MG TAB PO SCH ×3 (13:34→20:30)
[2019-12-22] MEDS: SODIUM CHLORIDE 0.9% 1000ML 1,000 ML IV SCH (14:00)
[2019-12-23] MEDS: PIPERACILLIN/TAZOBACTAM 3.375 GM in DEXTROSE 5% 100 ML IV SCH ×2 (01:13→10:19)
[2019-12-23] MEDS: ACETAMINOPHEN 500 MG TAB PO SCH ×6 (01:15→20:09)
[2019-12-23] MEDS ORDERED: VANCOMYCIN TROUGH ONE (03:30)
[2019-12-23 03:59] LABS: Eosinophils # (auto) 0.09 K/uL (0-0.5); Eosinophils % (auto) 1.3 %; Hematocrit (blood only) 36.2 % (37-47); Hemoglobin 11.8 g/dL (12.0-16.0); Immature Granulocytes # (auto) 0.02 K/uL (0.00-0.02); Immature Granulocytes % (auto) 0.3 %; Lymphocytes # (auto) 0.95 K/uL (1.2-3.4); Lymphocytes % (auto) 13.8 %; Mean Corpuscular Hemoglobin 31.8 pg (25-34); Mean Corpuscular Hgb Conc 32.6 g/dL (32-36); Mean Corpuscular Volume 97.6 fL (80-100); Mean Platelet Volume 10.8 fL (7.4-10.4); Monocytes # (auto) 0.92 K/uL (0.11-0.59); Monocytes % (auto) 13.4 %; Neutrophils # (auto) 4.88 K/uL (1.4-6.5); Neutrophils % (auto) 71.2 %; Platelet Count 163 K/uL (130-400); RDW Coefficient of Variation 14.8 % (11.5-14.5); RDW Standard Deviation 52.6 fL (36.4-46.3); Red Blood Count 3.71 M/uL (4.2-5.4); White Blood Count 6.86 K/uL (4.8-10.8)
[2019-12-23 04:16] LABS: Albumin Level 2.2 gm/dl (3.4-5.0); BUN Creatinine Ratio 18.1 (10-20); Calcium 8.7 mg/dl (8.5-10.1); Est GFR (African American) 100.9; Potassium 3.9 mmol/L (3.5-5.1)
[2019-12-23 04:22] LABS: Albumin Globulin Ratio 0.7 (0.9-2); Bilirubin,Total 0.7 mg/dl (0.2-1); Globulin 3.2 gm/dl (2.5-4.0); Total Protein 5.4 gm/dl (6.4-8.2)
[2019-12-23] MEDS: VANCOMYCIN HCL 1,250 MG in SODIUM CHLORIDE 0.9% 250 ML IV SCH (04:59)
[2019-12-23] MEDS: SODIUM CHLORIDE 0.9% 1000ML 1,000 ML IV SCH (07:16)
--- NOTE | 2019-12-23 08:48 | Hospitalist Progress Note ---
Date of Service December 23, 2019 Assessment & Plan (1) Cat bite: (2) Cellulitis of left leg: Per admitting service notes: This is a 73-year-old female with PMH of anxiety, depression, GAITAN cirrhosis, non-Hodgkin's lymphoma s/p chemo and radiation in remission and other medical problems listed below who presents with left lower extremity redness x 3 days. -Cat bite 3 days [employer] now with cellulitis from ankle to mid proximal thigh -Afebrile with vital signs in normal range. Mild leukocytosis of 12.32, now 11.58, all Cultures NGTD -Lower extremity CT with soft tissue edema and subcutaneous fluid. No organized/drainable fluid collection to suggest abscess. No soft tissue gas is seen. No evidence of DVT on LLE venous doppler -Afebrile, leukocytosis resolved -Continue empiric vancomycin and Zosyn -Ortho on case -Monitor closely (3) Hypertension: Normotensive. Continue amlodipine, nadolol (4) GERD (gastroesophageal reflux disease): (5) Barretts esophagus: Continue Pepcid, Protonix (6) Depression: (7) Anxiety: Continue Cymbalta (8) Non-Hodgkin lymphoma: s/p chemo and XRT, in remission DVT Ppx: SQ heparin Code status: FULL PCP: Ruth Dispo: Anticipate discharge home when medically stable remotely piloted vehicle controller consulted US LLE ROS-No Headache, No Visual Changes, No Nausea, No Vomiting, No Fever, No Chills, No Neck Pain or Stiffness, No Chest Pain, No Palpitations, No SOB, No SEXTON, No Cough, No Sputum, No Wheezing, No Abdominal Pain, No Diarrhea, No Hematemesis, No Hemoptysis, No Unexpected Weight Loss, No Flank pain, No Melena, No Hematochezia, No Frequency, No Urgency, No Burning, No Hematuria, No Rashes, No Diaphoresis. Appetite is Normal, c/o sore LLE Physical Exam Gen-AAO x 3, NAD, Afebrile Head-NCAT, EOMI, PERRLA, Anicteric Sclera, No Posterior Pharyngeal Erythema Neck-Supple, No JVD, No Thyromegaly, No Masses, No LAD, No Bruits Lungs-Clear to Auscultation Bilaterally, No Rales, No Rhonchi, No Wheezing, No Crepitus Chest-No S4, +S1, +S2, No S3, No Murmurs, No Rubs, No Gallops, No Ectopy Abdomen-Soft, Bowel Sounds Present, Non Tender, Non Distended, No Hepatomegaly, No Splenomegaly, No Palpable Masses, No Rebound, No Rigidity, No Guarding Musculoskeletal-Full Range of Motion Bilaterally, No CVAT Extremities-LLE Edema from the ankle up to the mid thigh, erythema contained within the demarcation line, tenderness, Small wounds in the anterior govea area, with no active discharge or bleeding, RLE wo CCE Nuero-Cranial Nerves II-XII grossly intact, Motor WNL, DTRs WNL, Strength WNL, Non Focal Psych-Normal Mood Admission and Anticipated Discharge Date Admission Date: December 20, 2019 Results & Data Results & Data ([facility]) Vital Signs (Past 12 Hours) Vital Signs Temp Pulse Pulse Resp BP Pulse Ox 12/23/19 08:00 36.6 C 67 18 146/78 H 95 12/23/19 07:23 68 12/23/19 00:55 70 12/22/19 23:22 36.7 C 82 16 112/73 96 (1) Cat bite Encounter type: initial encounter Qualified Code(s): W55.01XA - Bitten by cat, initial encounter
--- NOTE | 2019-12-23 10:07 | Pharmacy Report ---
Pharmacy Abx Dose Short Note - Date of Service December 23, 2019 - Assessment & Plan Assessment 74 year old F receiving Vancomycin + Zosyn for treatment of LLE cellulitis secondary to a cat bite * Day # 4 of antimicrobial therapy * Afebrile since admission. Leukocytosis improved. * Blood cultures show no growth after almost 72 hours. Plan Vancomycin * Trough level of 18.9 mcg/mL is therapeutic * Continue dose of 1250 mg IV every 12 hours * Goal trough level: ~15 mcg/mL * Trough level ordered for 12/24/2019 @ 1530 Zosyn * Continue 3.375 gm IV every 8 hours Pharmacy will continue to follow and will adjust dose/frequency as necessary. Thank you.
--- NOTE | 2019-12-23 10:13 | Ultrasound Report ---
US venous doppler LE LT CLINICAL HISTORY: Left leg swelling COMPARISON STUDY: 12/20/2019 FINDINGS: Real-time and color flow Doppler imaging were performed. Flow was seen within the femoral, popliteal and calf veins with no intraluminal thrombus demonstrated. The saphenous vein is patent. IMPRESSION: No evidence of left lower extremity DVT. ACT 112: Negative or not required by law. Electronically signed by: Geovanny Harrington M.D. 12/23/2019 10:12 AM
[2019-12-23] MEDS: FUROSEMIDE 40 MG in SYRINGE 0 ML IV SCH ×2 (10:16→20:06)
[2019-12-23] MEDS: nadoloL 40 MG TAB PO SCH (10:16)
[2019-12-23] MEDS: amLODIPine BESYLATE 5 MG TAB PO SCH (10:17)
[2019-12-23] MEDS: GABAPENTIN 300 MG CAP PO SCH ×3 (10:17→20:07)
[2019-12-23] MEDS: MAGNESIUM OXIDE 400 MG TAB PO SCH ×2 (10:17→20:07)
[2019-12-23] MEDS: PANTOprazole 40 MG TAB PO SCH (10:18)
[2019-12-23] MEDS: ADVANCED PROBIOTIC 1250 MG CAPSULE PO SCH (10:18)
[2019-12-23] MEDS: FAMOTIDINE 20 MG TAB PO SCH ×2 (10:18→20:09)
[2019-12-23] MEDS: DULoxetine HCL 60 MG CAP PO SCH (11:06)
[2019-12-23] MEDS: CHOLECALCIFEROL 1,000 UNITS 25 MCG TAB PO SCH (11:58)
[2019-12-23] MEDS: AMPICILLIN/SULBACTAM SOD 1,500 MG in 0.9 % SODIUM CHLORIDE 100 ML IV SCH ×2 (12:35→17:17)
[2019-12-23] MEDS ORDERED: FLUCONAZOLE 50 MG TAB PO ONE (16:36)
--- NOTE | 2019-12-23 17:21 | Orthopedic Progress Note ---
Date of Service December 23, 2019 Assessment & Plan (1) Cellulitis of left leg: The cat bite related cellulitis seems to be making interval improvement. There does not seem to be any involvement of the knee. She remains without evidence of abscess or other deep fluid collection that would require surgical debridement. I recommend continued lower extremity elevation and ankle pumps to continue to mobilize the edema and speed clearance of this infection. Defer to the primary team for antibiotic management. She is improving to the point where to consider transition to oral regimen if there is a equal choice for bioavailability, given her improving white count and clinical picture. Present on Admission?: Yes Admission and Anticipated Discharge Date Admission Date: December 20, 2019 Subjective Evaluated this morning on rounds. She reports no interval progression in her symptoms. She has been attempting to elevate her leg and thinks that she has been doing a good job. She is in agreement that there is less swelling in the leg. She denies any significant fevers or chills. Pain is not increasing. Review of Systems Review of Systems: All systems reviewed & are unremarkable except as noted in HPI & below Physical Exam Physical Exam: Left lower extremity: The dressing on her left leg was pulled distally to reveal punctate wounds that had since ceased their drainage. She had reduction in the congestion of the soft tissues of the skin below in the knee. There seems to be receding erythema in regards to intensity and area. Overall, the leg looks better than the first visit yesterday. Constitutional: WD/WN, vitals as above + well hydrated; no acute distress Respiratory: no respiratory distress Cardiovascular: Extremities: normal capillary refill Psychiatric: A+Ox3, euthymic affect Results & Data ([facility]) Vital Signs (Past 12 Hours) Vital Signs Temp Pulse Pulse Resp BP Pulse Ox 12/23/19 16:00 36.7 C 73 18 132/81 97 12/23/19 08:00 36.6 C 67 18 146/78 H 95 12/23/19 07:23 68 Laboratory Results H & H 12/20/19 12/21/19 12/22/19 Range/Units 14:21 04:52 06:03 Hgb 14.4 12.9 13.6 (12.0-16.0) g/dL Hct 42.7 38.2 41.0 (37-47) % 12/23/19 Range/Units 03:36 Hgb 11.8 L (12.0-16.0) g/dL Hct 36.2 L (37-47) % Coagulation 12/20/19 Range/Units 14:21 INR 1.2 H (0.9-1.1) Laboratory Tests 12/23/19 03:36 WBC 6.86 PG Care Time/CCT Total # of Minutes Spent Total Time Spent with Patient: Total time spent is greater than 50% in coordination of care (as documented) at patient's floor/unit and/or counseling patient: Coding Level of Care Code 98583 Subseq Obs Care Lvl 3 Diagnoses Cellulitis of left leg L03.116
[2019-12-23 19:02] LABS: Appearance Urine Clear (Clear); Bilirubin Urine Negative (Negative); Blood Urine Negative (Negative); Color Urine Yellow; Glucose Urine UA Negative (Negative); Ketones Urine Negative (Negative); Leukocyte Esterase Urine Negative (Negative); Nitrite Urine Negative (Negative); Protein Urine Negative (Negative); Urobilinogen Urine Negative (Negative); pH Urine 6.5 (4.5-7.5)
[2019-12-23] MEDS: PHENAZOPYRIDINE HCL 100 MG TAB PO SCH (20:07)
[2019-12-24] MEDS: AMPICILLIN/SULBACTAM SOD 1,500 MG in 0.9 % SODIUM CHLORIDE 100 ML IV SCH ×2 (00:33→06:14)
[2019-12-24] MEDS: ACETAMINOPHEN 500 MG TAB PO SCH ×3 (00:34→08:25)
[2019-12-24] MEDS: MAGNESIUM OXIDE 400 MG TAB PO SCH (08:23)
[2019-12-24] MEDS: FAMOTIDINE 20 MG TAB PO SCH (08:23)
[2019-12-24] MEDS: GABAPENTIN 300 MG CAP PO SCH (08:23)
[2019-12-24] MEDS: DULoxetine HCL 60 MG CAP PO SCH (08:24)
[2019-12-24] MEDS: PHENAZOPYRIDINE HCL 100 MG TAB PO SCH (08:24)
[2019-12-24] MEDS: FUROSEMIDE 40 MG in SYRINGE 0 ML IV SCH (08:24)
[2019-12-24] MEDS: PANTOprazole 40 MG TAB PO SCH (08:24)
[2019-12-24] MEDS: amLODIPine BESYLATE 5 MG TAB PO SCH (08:24)
[2019-12-24] MEDS: nadoloL 40 MG TAB PO SCH (08:25)
[2019-12-24] MEDS: ADVANCED PROBIOTIC 1250 MG CAPSULE PO SCH (08:25)
[2019-12-24] MEDS: CHOLECALCIFEROL 1,000 UNITS 25 MCG TAB PO SCH (08:25)
--- NOTE | 2019-12-24 08:45 | Discharge Summary ---
Date of Service December 24, 2019 Admission HPI Per Admitting Provider This is a 73-year-old female with PMH of anxiety, depression, GAITAN cirrhosis, non-Hodgkin's lymphoma s/p chemo and radiation in remission and other medical problems listed below who presents with left lower extremity redness x 3 days. On Friday, patient's cat bit her twice on her left govea. Yesterday, patient started to notice redness surrounding the bite from ankle bone up to knee. As of today, leg was more swollen and redness had continue to expand above knee to mid thigh. Patient also noticed some drainage from areas of bite. Came to ED for further evaluation. Area is painful to touch and with ambulation, especially L calf. Endorses chills and headache and one episode of vomiting this morning. Denies any fever, lightheadedness, confusion, myalgias, chest pain, palpitations, abdominal pain, dysuria, diarrhea or constipation. Of note, patient also with history of left knee replacement with prosthesis 3 months ago. In ED, patient is afebrile with stable vital signs. Mild leukocytosis of 12.32, lactic acid elevation of 2.9 and procalcitonin 0.61. Lower extremity CT with soft tissue edema and subcutaneous fluid. No organized/drainable fluid collection to suggest abscess. No soft tissue gas is seen. Admission Exam Per Admitting Provider General Appearance: WD/WN, vitals as above, NAD, sitting up in bed, pleasant, conversing easily Head: normocephalic, atraumatic Eyes: normal inspection, PERRL, conjunctivae normal, anicteric sclerae ENT: external ear and nose normal, oropharynx normal Neck: normal visual inspection, trachea midline, no thyromegaly Respiratory: normal respiratory effort, lungs clear to auscultation, no wheeze, rales, rhonchi. No accessory muscle use Cardiovascular: regular rate, rhythm, no murmur, normal peripheral pulses, no BLE edema. Vessels: no JVD Chest: normal inspection of chest Abdomen/GI: normal bowel sounds, soft, nontender, no hepatosplenomegaly Extremities/Musculoskeletal: no cyanosis or clubbing, extremities motor strength 5/5. + LLE with two separate puncture wounds noted on anterior and lateral aspect of govea with mild serous drainage with erythema and edema extending down to ankle and up to mid-point of proximal thigh. Tender to palpation. No crepitus. Distal pulses intact Neurologic: PERRL, EOMI, accommodation nl, no face palsy, no dysarthria, CN's II-XI intact bilaterally and moves all extremities Psychiatric: A+Ox3, euthymic affect Skin: no rashes, normal color, warm/dry. See MSK section Principal Diagnosis (1) Cat bite: (2) Cellulitis of left leg: (3) Hypertension: (4) GERD (gastroesophageal reflux disease): (5) Barretts esophagus: (6) Depression: (7) Anxiety: (8) Non-Hodgkin lymphoma: Discharge Exam See Below Discharge Data Allergies Allergy/AdvReac Type Severity Reaction Status Date / Time latex Allergy Mild RASH Verified 12/20/19 18:07 NSAIDS (Non-Steroidal AdvReac Intermediate steinberg's Verified 12/20/19 18:07 Anti-Inflamma esophagus Dyazide AdvReac Mild reaction Verified 08/26/17 08:15 unknown hydrochlorothiazide AdvReac Mild reaction Verified 12/20/19 18:07 unknown triamterene AdvReac Mild reaction Verified 12/20/19 18:07 unknown Consultations 12/20/19 16:50 ED Decision to Admit Stat 12/21/19 17:33 Consult Orthopedic Surgery Routine Ordered Studies 12/20/19 13:59 CT tib/fib LT w con Stat 12/20/19 19:15 US venous doppler LE LT Urgent 12/21/19 17:32 CT tib/fib LT wo con Urgent 12/23/19 09:30 US venous doppler LE LT Routine Current Diagnoses Non-Hodgkin lymphoma, unspecified, unspecified site (12/20/19) Major depressive disorder, single episode, unspecified (12/20/19) Anxiety disorder, unspecified (12/20/19) Essential (primary) hypertension (12/20/19) Gastro-esophageal reflux disease without esophagitis (12/20/19) Steinberg's esophagus without dysplasia (12/20/19) Cellulitis of left lower limb (12/20/19) Bitten by cat, initial encounter (12/20/19) Allergies latex Allergy (Mild, Verified 12/20/19 18:07) RASH NSAIDS (Non-Steroidal Anti-Inflamma Adverse Reaction (Intermediate, Verified 12/20/19 18:07) steinberg's esophagus Dyazide Adverse Reaction (Mild, Verified 08/26/17 08:15) reaction unknown hydrochlorothiazide Adverse Reaction (Mild, Verified 12/20/19 18:07) reaction unknown triamterene Adverse Reaction (Mild, Verified 12/20/19 18:07) reaction unknown Height/Weight/Isolation Height 5 ft 5 in Weight 96.8 kg Chemistry 12/23/19 03:36 Sodium 143 Potassium 3.9 Chloride 113 H Carbon Dioxide 26 Anion Gap 4.0 BUN 12 Creatinine 0.66 Glucose 111 H Urinalysis 12/23/19 18:35 Urine Color Yellow Urine Appearance Clear Urine pH 6.5 Ur Specific Rowley 1.010 Urine Protein Negative Urine Glucose (UA) Negative Urine Ketones Negative Urine Blood Negative Urine Nitrite Negative Urine Bilirubin Negative Microbiology 12/20/19 14:32 Blood Aerobic Blood Culture - Preliminary No growth in Aerobic bottle after 48 hours. 12/20/19 14:32 Blood Anaerobic Blood Culture - Preliminary No growth in Anaerobic bottle after 48 hours. 12/20/19 14:21 Blood Aerobic Blood Culture - Preliminary No growth in Aerobic bottle after 48 hours. 12/20/19 14:21 Blood Anaerobic Blood Culture - Preliminary No growth in Anaerobic bottle after 48 hours. 12/20/19 Unknown Leg,Left Gram Stain - Final 12/20/19 Unknown Leg,Left Deep Wound Culture - Final No growth Hospital Course (1) Cat bite: (2) Cellulitis of left leg: Per admitting service notes: This is a 73-year-old female with PMH of anxiety, depression, GAITAN cirrhosis, non-Hodgkin's lymphoma s/p chemo and radiation in remission and other medical problems listed below who presents with left lower extremity redness x 3 days. -Cat bite 3 days [employer] now with cellulitis from ankle to mid proximal thigh -Afebrile with vital signs in normal range. Mild leukocytosis of 12.32, now 11.58, all Cultures NGTD -Lower extremity CT with soft tissue edema and subcutaneous fluid. No organized/drainable fluid collection to suggest abscess. No soft tissue gas is seen. No evidence of DVT on LLE venous doppler -Afebrile, leukocytosis resolved -DC on Augmentin (3) Hypertension: Normotensive. Continue amlodipine, nadolol (4) GERD (gastroesophageal reflux disease): (5) Barretts esophagus: Continue Pepcid, Protonix (6) Depression: (7) Anxiety: Continue Cymbalta (8) Non-Hodgkin lymphoma: s/p chemo and XRT, in remission Code status: FULL PCP: Ruth Dispo: Discharge home today ROS-No Headache, No Visual Changes, No Nausea, No Vomiting, No Fever, No Chills, No Neck Pain or Stiffness, No Chest Pain, No Palpitations, No SOB, No SEXTON, No Cough, No Sputum, No Wheezing, No Abdominal Pain, No Diarrhea, No Hematemesis, No Hemoptysis, No Unexpected Weight Loss, No Flank pain, No Melena, No Hematochezia, No Frequency, No Urgency, No Burning, No Hematuria, No Rashes, No Diaphoresis. Appetite is Normal, c/o sore LLE Physical Exam Gen-AAO x 3, NAD, Afebrile Head-NCAT, EOMI, PERRLA, Anicteric Sclera, No Posterior Pharyngeal Erythema Neck-Supple, No JVD, No Thyromegaly, No Masses, No LAD, No Bruits Lungs-Clear to Auscultation Bilaterally, No Rales, No Rhonchi, No Wheezing, No Crepitus Chest-No S4, +S1, +S2, No S3, No Murmurs, No Rubs, No Gallops, No Ectopy Abdomen-Soft, Bowel Sounds Present, Non Tender, Non Distended, No Hepatomegaly, No Splenomegaly, No Palpable Masses, No Rebound, No Rigidity, No Guarding Musculoskeletal-Full Range of Motion Bilaterally, No CVAT Extremities-LLE Edema from the ankle up to Knee, Much Better, erythema Resolved, Small wounds in the anterior govea area, with no active discharge or bleeding, RLE wo CCE Nuero-Cranial Nerves II-XII grossly intact, Motor WNL, DTRs WNL, Strength WNL, Non Focal Psych-Normal Mood Total Time Total Time Spent Total Time Spent (In Minutes): 45 mins Total Time Includes: Examination of the Patient, Discharge Planning, Medication Reconciliation and Communication With Other Providers Discharge Plan Discharge Items Patient Disposition: Home - Self-Care Reason For Visit: Cellulitis 2/2 cat bite Discharge Diagnosis: (1) Cat bite: (2) Cellulitis of left leg: (3) Hypertension: (4) GERD (gastroesophageal reflux disease): (5) Barretts esophagus: (6) Depression: (7) Anxiety: (8) Non-Hodgkin lymphoma: Condition on Discharge: Good Activity: Resume your previous activity Lifting: None Bathing: No limitations Exercise/Sports: None Driving/Machine Use: No limitations Weightbearing: Full weightbearing Non-emergency contact: Primary Care Provider Call non-emergency contact if: you have any medication questions and your symptoms worsen Follow-up/Referrals: Kerrie Miranda MD [Primary Care Provider] - Diet: Heart Healthy Addtl Attending Provider Instructions: Keep Left Leg Elevated as much as possible Pending Studies at Discharge: No Stand-Alone Forms: My [facility] [place] [employer], Smoking Cessation Medications and DC Order Prescriptions: New phenazopyridine [Pyridium] 100 mg Tablet 100 mg PO TID Qty: 9 RF: 0 Advanced Probiotic 625 mg (10 billion cell) Capsule 2 cap PO DAILY Qty: 14 RF: 0 amoxicillin-pot clavulanate [Augmentin] 875-125 mg tablet 1 tab PO Q12H Qty: 20 RF: 0 Continued omeprazole 40 mg capsule,delayed release(DR/EC) 40 mg PO QAM RF: 0 celecoxib [Celebrex] 200 mg capsule 200 mg PO QAM RF: 0 nadolol 20 mg tablet 20 mg PO QAM RF: 0 amlodipine 5 mg tablet 5 mg PO QAM RF: 0 ondansetron HCl [Zofran] 4 mg tablet 4 mg PO Q8H PRN (Reason: nausea and vomiting) Qty: 20 RF: 0 docusate sodium [Colace] 100 mg capsule 100 mg PO BID PRN (Reason: Constipation) RF: 0 duloxetine 60 mg capsule,delayed release(DR/EC) 60 mg PO QAM RF: 0 loperamide 2 mg Capsule 2 mg PO QID PRN (Reason: Diarrhea) RF: 0 cholecalciferol (vitamin D3) 25 mcg (1,000 unit) Tablet 25 mcg PO DAILY RF: 0 famotidine 20 mg tablet 20 mg PO BID RF: 0 gabapentin 300 mg capsule 300 mg PO TID RF: 0 furosemide 20 mg tablet 40 mg PO QAM PRN (Reason: Edema) RF: 0 Discontinued amoxicillin 500 mg Capsule 20,000 mg PO .PRN/UD RF: 0 Discharge Orders: Discharge Order (Routine); Ordered 12/24/19 Ordered By: Jose Carlos Vegas Admission Data Admit Date/Time: 12/20/19 17:11 Attending Provider: Jose Carlos Vegas Admit Provider: Luis Camarena Primary Care Provider: Kerrie Miranda Other Providers: Luis Camarena ; Paddy Menjivar
[2019-12-24] MEDS ORDERED: VANCOMYCIN TROUGH ONE (15:30)
== END 2019-12-24 10:33 | disposition home or self-care (01) | DRG 603 ==
LOC: ED 13:29 → SUATTDRO 17:11 → 2N 17:11

== ENCOUNTER 2020-01-04 09:33 | Inpatient (IN) ==
--- NOTE | 2020-01-03 14:48 | Anesthesiology Consultation ---
Date of Service January 03, 2020 Assessment & Plan (1) Encounter for pre-operative examination: Chart Review Chart Review: Acceptable Risk for Surgery (pending nursing assessment AM of surgery, anesthesia evaluation AM of surgery and preop Riley Covid testing results. ) and Patient NOT seen in Pre Admission Testing Chart review: Patient not seen at PAT/no RN phone interview at time of review. Chart review from available information. Will need to review PMHX/PSHX/med/allergies/height and weight AM DOS. Did speak with patient on 01/03/20 regarding travel assessment. Pt resides in [facility]. Has only traveled to [facility] for medical appts. No known Covid positive contacts or Covid related symptoms. Pt did have negative Covid test 12/22/19. Pt was next day add on case so preop Covid testing was unable to be completed. Per surgeon, patient "has a septic left knee replacement with a high white count and other elevated lab values. It is imperative that she undergoes an irrigation debridement with polyexchange as soon as possible. This cannot wait, as she may become very sick if the procedure is not performed urgently." Plan to order nasal Riley DOS. Will leave to anesthesia discretion if further PPE and/or 0 vs rule needed Patient discharged from [facility] on 12/24/19= patient admitted secondary to cat bite and cellulitis of left leg. Patient with cellulitis from ankle to mid proximal thigh. Patient was afebrile with mild leukocytosis. Lower extremity CT with soft tissue edema and subcutaneous fluid. No organized/drainable fluid collection to suggest abscess. No soft tissue gas is seen. No evidence of DVT on LLE venous Doppler. Patient was discharged on Augmentin. Hypertensionc ontrolled. GERD/Steinberg'scontinue current meds. Depression/anxietycontinue current meds. Non-Hodgkin's lymphomacurrently in remission. Left TKA 09/27/2019 = done under MAC and SAB. SAB done at L3-4 with 1 attempt. No anesthesia issues noted. History Surgery Operation Date: 01/04/20 13:05 Proposed Procedures p Irrigation and Debridement, Poly Exchange Left Total Knee - Lanre Parekh DO Allergies Allergy/AdvReac Type Severity Reaction Status Date / Time latex Allergy Mild RASH Verified 12/20/19 18:07 NSAIDS (Non-Steroidal AdvReac Intermediate steinberg's Verified 12/20/19 18:07 Anti-Inflamma esophagus Dyazide AdvReac Mild reaction Verified 08/26/17 08:15 unknown hydrochlorothiazide AdvReac Mild reaction Verified 12/20/19 18:07 unknown triamterene AdvReac Mild reaction Verified 12/20/19 18:07 unknown Medications Home Medications Medication Instructions Recorded Confirmed Last Taken amlodipine 5 mg tablet 5 mg PO QAM 10/08/18 12/20/19 09/26/19 12:00 celecoxib 200 mg capsule 200 mg PO QAM 10/08/18 12/20/19 09/26/19 12:00 nadolol 20 mg tablet 20 mg PO QAM 10/08/18 12/20/19 09/26/19 12:00 omeprazole 40 mg capsule,delayed 40 mg PO QAM 10/08/18 12/20/19 09/26/19 12:00 release famotidine 20 mg PO BID 06/16/19 12/20/19 09/26/19 12:00 furosemide 40 mg PO QAM PRN 06/16/19 12/20/19 09/26/19 12:00 gabapentin 300 mg PO TID 06/16/19 12/20/19 09/26/19 20:00 docusate sodium [Colace] 100 mg PO BID PRN 09/02/19 12/20/19 Unknown duloxetine 60 mg PO QAM 09/02/19 12/20/19 09/26/19 12:00 ondansetron HCl 4 mg tablet 4 mg PO Q8H PRN #20 tab 10/04/19 12/20/19 Unknown cholecalciferol (vitamin D3) 25 mcg PO DAILY 12/20/19 12/20/19 Unknown loperamide 2 mg PO QID PRN 12/20/19 12/20/19 Unknown L.acidop,judy,lac,rha-B.lac,devi 2 cap PO DAILY #14 cap 12/24/19 Unknown [Advanced Probiotic] amoxicillin-pot clavulanate 1 tab PO Q12H #20 tab 12/24/19 Unknown [Augmentin] phenazopyridine [Pyridium] 100 mg PO TID #9 tab 12/24/19 Unknown Past Medical History Medical History Anxiety Barretts esophagus Breast cancer Left side initially- lumpectomy- no chemo/XRT; right side later dx'ed - had partial mastectomy- s/p XRT /possibly chemo- no current issues Cirrhosis Non-alcoholic Depression Fatty liver GERD (gastroesophageal reflux disease) Well controlled and stable Hypertension Non-Hodgkin lymphoma chemo/radiation- currently remission Osteoarthritis Rotator cuff arthropathy of right shoulder Skin cancer Past Family History Family History Other Cancer Diabetes Heart disease No family history of adverse response to anesthesia Past Surgical History Surgical History H/O Mohs micrographic surgery for skin cancer Removed from top of head History of anesthesia reaction slow to wake up History of appendectomy History of cholecystectomy History of colonoscopy History of esophagogastroduodenoscopy (EGD) History of hysterectomy HAL History of left knee replacement 09/2019 History of partial mastectomy of right breast with lymph node removal History of right knee joint replacement S/P lumpectomy, left breast Social History Smoking Status: Never smoker Hx Alcohol Use: No Hx Substance Use: No substance use type: does not use Testing Laboratory Results Laboratory Tests 01/03/20 01/03/20 01/03/20 14:41 14:41 14:41 WBC 12.80 H Hgb 13.9 Hct 42.6 Plt Count 493 H PT 10.9 INR 1.0 APTT 27.8 Sodium 137 Potassium 4.2 Chloride 102 Carbon Dioxide 30 BUN 13 Creatinine 0.69 Glucose 103 H Electrocardiogram Date: 12/20/19 Findings: + NSR @ (84) Left axis deviation. Moderate voltage criteria for LVH, may be normal variant. Compared to EKG from September 08, 2019nonspecific T wave abnormality now evident in anterior leads per cardio. Chest X-Ray Date: 12/20/19 Findings: + NAD Echocardiogram Date: 12/30/17 EF: 55 to 59% LV Function: normal Valvular Disease: + AI (Moderate) Mild MR. Mild TR. Mild DE. Stress Test Date: 01/29/18 Type: DSE Resting RWMA: + none Stress echo was negative for inducible ischemia. No arrhythmias. Hypertensive BP response to dobutamine infusion.
--- NOTE | 2020-01-03 16:34 | History & Physical Report ---
Date of Service January 03, 2020 Assessment & Plan (1) Infection of total left knee replacement: We will proceed with an open irrigation and debridement and polyexchange of the left knee. Postoperatively she will be kept in the hospital on IV antibiotics and the hospitalist and infectious disease will be consulted. Present on Admission?: Yes History of Present Illness Chief Complaint: Acute left knee periprosthetic joint infection Primary Care Provider: Kerrie Miranda MD Montse is a pleasant 74-year-old female who underwent a left total knee arthroplasty 3-1/2 months ago. She initially did very well postoperatively. For the first 3 months she was doing great. She then had a cat bite on her left ankle. On the third day after the cat bite she had severe cellulitis extending up her leg past her knee. She went to the hospital. CT scan showed soft tissue edema but no localized abscess. She was treated with IV antibiotics. Her symptoms improved. She was then discharged home on oral amoxicillin. Unfortunate she then began having knee pain. She was downgraded to a cane and she is limping constantly because of the left knee pain. She noticed more more swelling around the left knee. She came to our office. I aspirated her left knee and sent to lab. The labs showed 30,000 and white count and elevated neutrophils. She had a high white blood cell count as well as a high sed rate and CRP. I decided to take her to the operating room for an open irrigation and debridement with polyexchange of the left knee. Allergies Allergy/AdvReac Type Severity Reaction Status Date / Time latex Allergy Mild RASH Verified 12/20/19 18:07 NSAIDS (Non-Steroidal AdvReac Intermediate steinberg's Verified 12/20/19 18:07 Anti-Inflamma esophagus Dyazide AdvReac Mild reaction Verified 08/26/17 08:15 unknown hydrochlorothiazide AdvReac Mild reaction Verified 12/20/19 18:07 unknown triamterene AdvReac Mild reaction Verified 12/20/19 18:07 unknown Home Medications Medication Instructions Recorded Confirmed Type amlodipine 5 mg tablet 5 mg PO QAM 10/08/18 12/20/19 History celecoxib 200 mg capsule 200 mg PO QAM 10/08/18 12/20/19 History nadolol 20 mg tablet 20 mg PO QAM 10/08/18 12/20/19 History omeprazole 40 mg capsule,delayed 40 mg PO QAM 10/08/18 12/20/19 History release famotidine 20 mg PO BID 06/16/19 12/20/19 History furosemide 40 mg PO QAM PRN 06/16/19 12/20/19 History gabapentin 300 mg PO TID 06/16/19 12/20/19 History docusate sodium [Colace] 100 mg PO BID PRN 09/02/19 12/20/19 History duloxetine 60 mg PO QAM 09/02/19 12/20/19 History ondansetron HCl 4 mg tablet 4 mg PO Q8H PRN #20 tab 10/04/19 12/20/19 Rx cholecalciferol (vitamin D3) 25 mcg PO DAILY 12/20/19 12/20/19 History loperamide 2 mg PO QID PRN 12/20/19 12/20/19 History L.acidop,judy,lac,rha-B.lac,devi 2 cap PO DAILY #14 cap 12/24/19 Rx [Advanced Probiotic] amoxicillin-pot clavulanate 1 tab PO Q12H #20 tab 12/24/19 Rx [Augmentin] phenazopyridine [Pyridium] 100 mg PO TID #9 tab 12/24/19 Rx Past Med/Surg History Medical History Anxiety Barretts esophagus Breast cancer Left side initially- lumpectomy- no chemo/XRT; right side later dx'ed - had partial mastectomy- s/p XRT /possibly chemo- no current issues Cirrhosis Non-alcoholic Depression Fatty liver GERD (gastroesophageal reflux disease) Well controlled and stable Hypertension Non-Hodgkin lymphoma chemo/radiation- currently remission Osteoarthritis Rotator cuff arthropathy of right shoulder Skin cancer Surgical History H/O Mohs micrographic surgery for skin cancer Removed from top of head History of anesthesia reaction slow to wake up History of appendectomy History of cholecystectomy History of colonoscopy History of esophagogastroduodenoscopy (EGD) History of hysterectomy HAL History of left knee replacement 09/2019 History of partial mastectomy of right breast with lymph node removal History of right knee joint replacement S/P lumpectomy, left breast Family History Other Cancer Diabetes Heart disease No family history of adverse response to anesthesia Social History Smoking Status: Never smoker Second Hand Exposure: No; Hx Alcohol Use: No Hx Substance Use: No Preferred Language: Guyanese Communication Ability: Impaired Vocational Services Specialist Required: No Beliefs That Will Affect Care: None marital status: Current Living Situation: Spouse Current Living Situation Comment: and son Feels Safe at Home: Yes Assistive Devices: Walker Review of Systems Review of Systems: All systems reviewed & are unremarkable except as noted in HPI & below Physical Exam Physical Exam: On physical examination of the left knee, there is some pitting edema around the knee. There is not a lot of redness. She does have a severe tenderness to palpation around the entire knee joint. The Plate appears to have completely resolved. She has range of motion from 0 to 90 degrees. She has pain while ambulating. PG Care Time/CCT Total # of Minutes Spent Total Time Spent with Patient: Total time spent is greater than 50% in coordination of care (as documented) at patient's floor/unit and/or counseling patient: Coding Level of Care Code None Diagnoses Infection of total left knee replacement T84.54XA
[~2020-01-04 09:33] MED LIST changes: -ACETAMINOPHEN 500 MG TAB PO SCH; +BUPIVACAINE 0.25% 30 ML VIAL ONE; -CEFAZOLIN 2000MG 2,000 MG/15 ML SYR IV SCH; -EPINEPHrine INJ 1 MG/ML AMP ONE; -FAMOTIDINE 20 MG TAB PO SCH; -GABAPENTIN 300 MG CAP PO SCH; +LIDOCAINE HCL 2% 2 ML VIAL/AMP(20MG/ML) INFIL ONE; +LR 15ML/HR IV SCH; -LR 500ML BOLUS, THEN 15ML/HR IV SCH; -LR 60ML/HR IV SCH; +MIDAZOLAM HCL 1 MG/ML 2ML VIAL ONE; +ONDANSETRON INJ 2 MG/ML 2 ML VIAL ONE; +PROPOFOL IV EMULSION 10 MG/ML 20 ML VIAL IV ONE; -ROPIVACAINE 0.5% 5 MG/ML 30 ML VIAL ONE; -ROPIVACAINE 0.5% HCL/PF 150 MG, BUPIVACAINE 0.5% MPF 30 ML, EPINEPHrine 30MG/30ML (OR U... INSTIL SCH; -dexAMETHasone 4 MG TAB PO SCH; +fentaNYL citrate 100 MCG/2 ML VIAL ONE
[2020-01-04] MEDS ORDERED: ATROPINE SULFATE 0.1 MG/ML 10ML SYR IV PRN (09:45)
[2020-01-04] MEDS ORDERED: ONDANSETRON INJ 2 MG/ML 2 ML VIAL IV PRN ×2 (09:45→12:43)
[2020-01-04] MEDS ORDERED: ePHEDrine sulfate 50 MG/ML AMP IV PRN (09:45)
[2020-01-04] MEDS ORDERED: BACITRACIN INJ 50,000 UNIT VIAL ONE ×2 (10:05→11:54)
[2020-01-04] MEDS ORDERED: ceFAZolin 2,000 MG/15 ML IV PUSH IV ONE (10:12)
[2020-01-04] MEDS ORDERED: dexAMETHasone 4 MG TAB PO ONE (10:13)
[2020-01-04] MEDS ORDERED: ACETAMINOPHEN 500 MG TAB ONE (10:13)
[2020-01-04] MEDS ORDERED: FAMOTIDINE 20 MG TAB ONE (10:13)
[2020-01-04] MEDS ORDERED: TRANEXAMIC ACID / 0.7% NACL 1000MG/100ML BAG IV ONE (10:14)
[2020-01-04] MEDS ORDERED: GABAPENTIN 300 MG CAP ONE (10:14)
[2020-01-04] MEDS ORDERED: DAKIN'S SOLN 0.25% HALF STRENGTH 473ML BTL EXT ONE (10:30)
--- NOTE | 2020-01-04 10:46 | History & Physical Bridge Note ---
Date of Service January 04, 2020 History & Physical Bridge Note I have examined the patient, reviewed the History & Physical and in the interval since the performance of the History & Physical I have noted the following changes of clinical significance: no changes noted
[2020-01-04] MEDS ORDERED: METOCLOPRAMIDE HCL INJ 5 MG/ML 2 ML VIAL IV PRN (12:43)
[2020-01-04] MEDS ORDERED: HYDROmorphone INJ 0.5 MG/0.5 ML SYR IV PRN (12:43)
[2020-01-04] MEDS ORDERED: NALOXONE HCL 0.4 MG/1 ML VIAL/CARP IV PRN (12:43)
[2020-01-04] MEDS ORDERED: VANCOMYCIN CONSULT ACTIVE PRN (12:43)
[2020-01-04] MEDS ORDERED: bisacodyL 10 MG SUPP PR PRN (12:43)
[2020-01-04] MEDS ORDERED: MAGNESIUM HYDROXIDE SUSP 30 ML UDC PO PRN (12:43)
[2020-01-04] MEDS ORDERED: fentaNYL citrate 100 MCG/2 ML VIAL ONE (12:45)
--- NOTE | 2020-01-04 13:00 | Operative Report ---
PG Post Operative Report Pre & Post Diagnosis Operation Date: 01/04/20 13:05 Pre-Op Diagnosis: Acute hematogenous left periprosthetic knee infection Post-Op Diagnosis: Acute hematogenous left periprosthetic knee infection I identified the patient and participated in the time-out.: Yes Procedure Operation Date: 01/04/20 13:05 Actual Procedures p Irrigation and Debridement, Poly Exchange Left Total Knee(Left) - Lanre Parekh DO Surgeon Lanre Parekh DO Cash Applications Specialist Lanre Casillas PAC Estimated Blood Loss 40 Findings Consistent with Post-Op Diagnosis Specimens Intraoperative cultures Complications none Disposition Disposition: Recovery Room Indications Montse is a pleasant 74-year-old female who underwent a left total knee arthroplasty about 3-1/2 months ago. She was doing great with her knee for about 3 months. About 2 weeks ago she was bitten by her cat. She had significant cellulitis of her left leg. She was in the hospital and treated with IV antibiotics. The cellulitis started to subside and she was discharged home on oral antibiotics. Then she began having significant pain in her left knee. I saw her in the office and aspirated her knee. The aspirate showed tayler pus. I diagnosed her with an acute hematogenous left periprosthetic knee infection. She presents to the hospital following day for irrigation debridement and polyexchange. Description of Procedure On January 04, 2020 Montse arrived at [facility] for the above procedure. She was seen in the preoperative holding area and the operative extremity was identified and signed. She was given a left abductor nerve block. She was taken back to the operating room and laid on the table in supine position. She was put under general anesthesia. The left knee was prepped and draped in sterile fashion. A timeout was done. The patient and the operative extremity was properly identified. The previous incision was opened up. Dissection was taken down to the extensor mechanism. A subvastus arthrotomy was once again used. There was some purulent fluid that was removed from the knee joint and the fluid was cultured. Time was spent doing a complete debridement of the entire intra-articular capsule. The medial lateral gutters were debrided. The suprapatellar pouch was debrided. Debridement was done around the patella as well as on the undersurface of the quad and the patella tendon. Once a thorough debridement had been done the polyethylene component was removed. The knee was then cleaned using a technique described by Dr. Kaplan. A 3-minute medium Dakin's solution lavage was done. The components were then scrubbed. The wound was then irrigated with 3 L of normal saline solution. A 3-minute Betadine lavage was then done. The components were then scrubbed. The wound was then irrigated with another 3 L of normal saline solution. The wound was then irrigated with an additional 3 L of normal saline solution with bacitracin. All cautery tips and suction tips were changed. A new draping was done and all gloves were changed. A sterile table was brought in. Several polyethylene trials were used and a size 16 seem to be the best fit. This is the same size polyethylene insert that was removed. The final size 16 polyethylene insert was then snapped into place. Tourniquet was deflated and hemostasis was obtained. 2 drains were placed. The extensor mechanism was closed with #1 Vicryl suture. Skin was closed with 2-0 Vicryl, 3 oh VueLock suture, and sriram. She was then placed in a Silverlon dressing and a compressive dressing. She was then extubated and transferred to a hospital bed. She was taken to the postanesthesia care unit in stable condition. She tolerated the procedure well. Lanre Casillas PA-C, was present for the entire procedure. He was critical for patient positioning, prepping, draping, retraction exposure, wound closure and application of sterile dressing. I attest to the content of the Intraoperative Record and any orders documented therein. Any exceptions are noted below.
[2020-01-04] MEDS ORDERED: ePHEDrine sulfate 50 MG/ML SYR ONE (13:06)
--- NOTE | 2020-01-04 13:33 | Anesthesiology Progress Note ---
Date of Service January 04, 2020 Anesthesia Post Procedure Vital Signs Vital Signs: Temp Pulse Pulse Resp BP Pulse Ox 01/04/20 13:30 36.7 C 68 16 140/73 98 01/04/20 13:20 68 17 135/69 98 01/04/20 13:10 67 12 141/74 H 96 01/04/20 13:00 36.9 C 68 13 142/76 H 95 01/04/20 10:06 36.8 C 72 18 146/82 H 97 Pain Intensity Left Knee: Pain Intensity: 0 Transfer of Care Handoff Completed per policy Notes Mental Status: alert / awake / arousable Patient Amnestic to Procedure: Yes Nausea / Vomiting: adequately controlled Pain: adequately controlled Airway Patency, RR, SpO2: stable & adequate BP & HR: stable & adequate Hydration State: stable & adequate Anesthetic Complications: no major complications apparent
--- NOTE | 2020-01-04 15:04 | Hospitalist Consultation ---
Date of Consultation January 04, 2020 Assessment & Plan (1) Infection of total left knee replacement: This is a 74yo F with a PMH of recent cat bite cellulitis of LLE, anxiety, depression, GAITAN cirrhosis, non-Hodgkin's lymphoma s/p chemo and radiation in remission and other medical problems listed below who presents acute L periprosthetic knee infection s/p irrigation debridement with poly exchange by Dr. Parekh. -Admitted with LLE cat bite cellulitis 2 weeks ago and was treated with IV vanc and zosyn empirically. No growth on blood/wound cultures -Developed persistent L knee pain and ambulatory dysfunction over the past week and saw Dr. Parekh in clinic yesterday, who performed joint aspiration with synovial wbc of 30K concerning for periprosthetic knee infection/septic joint -POD #0 s/p irrigation debridement with poly exchange by Dr. Parekh -Repeat L knee gram stain pending. Added blood cultures -Received cefazolin and dexamethasone pre-operatively and is now on vanc. Will add zosyn. Routine ID consult placed -Per ortho for pain control, wound care, anticoagulation and activities. Monitor H&H, PT/OT when appropriate (2) Hypertension: Normotensive. Continue amlodipine and nadolol (3) GERD (gastroesophageal reflux disease): (4) Barretts esophagus: Continue Pepcid, Protonix (5) Anxiety: (6) Depression: Continue Cymbalta (7) Non-Hodgkin lymphoma: S/p chemo and XRT, in remission PCP: Ruth Dispo:Per primary service Patient seen in collaboration with Dr. Lopez. Please see addendum. Thank you for this consultation. We will follow the patient with you during their hospital stay. You [facility] via pager @ [phone]. Supervising Physician Co-Signing Physician Notes Attending addendum: The patient was seen and examined in medical floor She was admitted with LLE cat bite cellulitis 2 weeks ago and was treated with IV vanc and zosyn empirically. No growth on blood/wound cultures and was sent home on oral Augmentin She has been complaining of more pain, swelling of the left knee with pitting of the cellulitis Complaint to have low-grade fever at home On examination Lying in bed with minimal pain in the left knee Hemodynamically stable Chest clear to auscultate bilaterally- Heart-S1-S2 regular, Abdomen-benign Extremities-left lower extremity is mostly bandaged RESIDENTIAL SALES REPRESENTATIVE-alert, awake and oriented x3 Preadmission labs and imaging studies reviewed She is a status post irrigation debridement with polyexchange of the left knee on 01/04/2020 She has been on intravenous antibiotic and ID consultation has been placed Her other medical conditions remain stable Agree with assessment and plan as outlined above by BETTYE Evans Dr History of Present Illness Reason for Consultation: post op medical consult Attending Physician: Lanre Parekh DO History of Present Illness This is a 74yo F with a PMH of recent cat bite cellulitis of LLE, anxiety, depression, GAITAN cirrhosis, non-Hodgkin's lymphoma s/p chemo and radiation in remission and other medical problems listed below who presents acute L periprosthetic knee infection s/p irrigation debridement with poly exchange by Dr. Parekh. Was admitted on 12/20/19 with cellulitis of LLE 3 days after a cat bite. CT showed soft tissue edema and no evidence of fluid collection or abscess. Was treated with IV vanc and Zosyn empirically and blood/wound cultures did not show growth. Was evaluated by ortho during admission who felt condition was improving with antibiotics and was discharged home on PO amoxicillin. Developed constant knee pain and required a cane for ambulation over the past week and was seen in outpatient setting for ortho follow up. Knee was aspirated and synovial fluid revealed wbc of 30K with elevated neutrophils. Also had eleva umer ESR of 66 and CRP of 2.72. Underwent open irrigation and debridement with poly exchange by Dr. Parekh today. Feeling pretty well after procedure with some drowsiness following anesthesia. Denies any fever, chills, headache, chest pain, shortness of breath, nausea, vomiting, abdominal pain, diarrhea or constipation. Does endorse some dysuria and foul odor. Adequate p.o. intake, per patient. Denies any medication changes since previous visit. Allergies Allergy/AdvReac Type Severity Reaction Status Date / Time latex Allergy Mild RASH Verified 01/04/20 09:57 hydrochlorothiazide Allergy Unknown reaction Verified 01/04/20 09:57 unknown triamterene Allergy Unknown reaction Verified 01/04/20 09:57 unknown NSAIDS (Non-Steroidal AdvReac Intermediate steinberg's Verified 01/04/20 09:57 Anti-Inflamma esophagus Dyazide AdvReac Mild reaction Verified 08/26/17 08:15 unknown Home Medications Medication Instructions Recorded Confirmed Type amlodipine 5 mg tablet 5 mg PO QAM 10/08/18 01/04/20 History celecoxib 200 mg capsule 200 mg PO QAM 10/08/18 01/04/20 History nadolol 20 mg tablet 20 mg PO QAM 10/08/18 01/04/20 History omeprazole 40 mg capsule,delayed 40 mg PO QAM 10/08/18 01/04/20 History release famotidine [Pepcid] 20 mg PO BID 06/16/19 01/04/20 History furosemide [Lasix] 40 mg PO QAM PRN 06/16/19 01/04/20 History gabapentin 300 mg PO TID 06/16/19 01/04/20 History docusate sodium [Colace] 100 mg PO BID PRN 09/02/19 01/04/20 History duloxetine [Cymbalta] 60 mg PO QAM 09/02/19 01/04/20 History ondansetron HCl 4 mg tablet 4 mg PO Q8H PRN #20 tab 10/04/19 01/04/20 Rx cholecalciferol (vitamin D3) 25 mcg PO QAM 12/20/19 01/04/20 History loperamide [Imodium A-D] 2 mg PO QID PRN 12/20/19 01/04/20 History L.acidop,judy,lac,rha-B.lac,devi 2 cap PO DAILY #14 cap 12/24/19 01/04/20 Rx [Advanced Probiotic] amoxicillin-pot clavulanate 1 tab PO Q12H #20 tab 12/24/19 01/04/20 Rx [Augmentin] Patient History Medical History Anxiety Barretts esophagus Breast cancer Left side initially- lumpectomy- no chemo/XRT; right side later dx'ed - had partial mastectomy- s/p XRT /possibly chemo- no current issues Cirrhosis Non-alcoholic Depression Fatty liver GERD (gastroesophageal reflux disease) Well controlled and stable Hypertension Non-Hodgkin lymphoma chemo/radiation- currently remission Osteoarthritis Rotator cuff arthropathy of right shoulder Skin cancer Surgical History H/O Mohs micrographic surgery for skin cancer Removed from top of head History of anesthesia reaction slow to wake up History of appendectomy History of cholecystectomy History of colonoscopy History of esophagogastroduodenoscopy (EGD) History of hysterectomy HAL History of left knee replacement 09/2019 History of partial mastectomy of right breast with lymph node removal History of right knee joint replacement S/P lumpectomy, left breast Family History Other Cancer Diabetes Heart disease No family history of adverse response to anesthesia Social History Smoking Status: Never smoker Second Hand Exposure: No; Do You Dip or Chew Tobacco: No; Tobacco Cessation Education Requested by Patient: No Hx Alcohol Use: No Hx Substance Use: No Preferred Language: Italian Communication Ability: Impaired Arnp Required: No Beliefs That Will Affect Care: None marital status: Current Living Situation: Spouse Current Living Situation Comment: and son Feels Safe at Home: Yes Safety Concerns: Feels Safe At This Time Assistive Devices: Glasses and Walker Review of Systems Review of Systems: At least ten systems reviewed and negative except as noted in the HPI. Physical Exam Physical Exam: General Appearance: WD/WN, vitals as above, NAD, sitting up in bed, pleasant, conversing easily Head: normocephalic, atraumatic Eyes: normal inspection, PERRL, conjunctivae normal, anicteric sclerae ENT: external ear and nose normal, oropharynx normal Neck: normal visual inspection, trachea midline, no thyromegaly Respiratory: normal respiratory effort, lungs clear to auscultation, no wheeze, rales, rhonchi. No accessory muscle use Cardiovascular: regular rate, rhythm, no murmur, normal peripheral pulses, no BLE edema Abdomen/GI: normal bowel sounds, soft, nontender, no hepatosplenomegaly Extremities/Musculoskeletal: +L knee with surgical dressing in place with ice, drain visualized, SCDs. No cyanosis or clubbing, extremities motor strength 5/5 Neurologic: PERRL,CN's II-XI intact bilaterally and moves all extremities Psychiatric: A+Ox3, euthymic affect Skin: no rashes, normal color, warm/dry Results & Data Results & Data ([facility]) Vital Signs (Past 12 Hours) Vital Signs Temp Pulse Pulse Resp BP Pulse Ox 01/04/20 15:01 63 16 128/80 100 01/04/20 14:13 36.9 C 67 16 137/81 100 01/04/20 14:00 36.7 C 65 14 138/74 98 01/04/20 13:50 36.7 C 66 18 136/64 97 01/04/20 13:40 36.7 C 65 15 137/77 97 01/04/20 13:30 36.7 C 68 16 140/73 98 01/04/20 13:20 68 17 135/69 98 01/04/20 13:10 67 12 141/74 H 96 01/04/20 13:00 36.9 C 68 13 142/76 H 95 01/04/20 10:06 36.8 C 72 18 146/82 H 97
[2020-01-04] MEDS ORDERED: VANCOMYCIN HCL 2,000 MG in SODIUM CHLORIDE 0.9% 500 ML IV ONE (15:15)
--- NOTE | 2020-01-04 15:22 | Pharmacy Report ---
Pharmacy Abx Dose Short Note - Date of Service January 04, 2020 - Assessment & Plan Assessment * Ms Barnett is a 74 year old F receiving IV vancomycin for treatment of left periprosthetic knee infection, s/p I&D in the OR today. * Patient received 2gm IV Ancef pre-op. Plan Vancomycin * Patient meets criteria for vancomycin AUC dosing nomogram * AUC/MARYCRUZ is the preferred PK/PD target for vancomycin * Target AUC/MARYCRUZ = 400-600 * AUC guided dosing is effective and associated with decreased risk of nephrotoxicity * Vancomycin 2000mg IV x1 dose, then 1000mg IV q8h * Trough level will be assessed prior to the 4th dose to assess for safety. Pharmacy will continue to follow and will adjust dose/frequency as necessary. Thank you.
[2020-01-04] MEDS ORDERED: PIPERACILL/TAZOBAC CONSULT ACTIVE PRN (16:33)
[2020-01-04] MEDS ORDERED: FUROSEMIDE 40 MG TAB PO PRN (16:36)
[2020-01-04] MEDS ORDERED: LOPERAMIDE HCL 2 MG CAP PO PRN (16:36)
[2020-01-04] MEDS: SODIUM CHLORIDE 0.9% 1000ML 1,000 ML IV SCH (16:54)
[2020-01-04] MEDS ORDERED: PIPERACILLIN/TAZOBACTAM 4.5 GM in DEXTROSE 5% 100 ML IV ONE (17:00)
[2020-01-04 18:07] LABS: Appearance Urine Cloudy (Clear); Bacteria Urine Automated Negative (Negative); Bilirubin Urine Negative (Negative); Blood Urine 1+ (Negative); Color Urine Dark Yellow; Epithelial Cell Urine Auto >30 /lpf (0-5); Glucose Urine UA Negative (Negative); Ketones Urine Negative (Negative); Leukocyte Esterase Urine Negative (Negative); Nitrite Urine Negative (Negative); Protein Urine Trace (Negative); Specific Gravity Urine 1.025 (1.000-1.030); Urobilinogen Urine Negative (Negative)
[2020-01-04] MEDS: SENNA 8.6 MG TAB PO SCH (21:20)
[2020-01-04] MEDS: GABAPENTIN 300 MG CAP PO SCH (21:20)
[2020-01-04] MEDS: DOCUSATE SODIUM 100 MG CAP PO SCH (21:20)
[2020-01-04] MEDS: FAMOTIDINE 20 MG TAB PO SCH (21:20)
[2020-01-04] MEDS: ASPIRIN 81 MG ECTAB PO SCH (21:20)
[2020-01-04] MEDS: oxyCODONE HCL IR 5 MG TAB (IMMEDIATE RELEASE) PO PRN (21:36)
[2020-01-04] MEDS: PIPERACILLIN/TAZOBACTAM 3.375 GM in DEXTROSE 5% 100 ML IV SCH (21:38)
[2020-01-05] MEDS: VANCOMYCIN HCL 1,000 MG in SODIUM CHLORIDE 0.9% 250 ML IV SCH ×2 (01:53→09:39)
[2020-01-05] MEDS: SODIUM CHLORIDE 0.9% 1000ML 1,000 ML IV SCH (03:52)
[2020-01-05] MEDS: PIPERACILLIN/TAZOBACTAM 3.375 GM in DEXTROSE 5% 100 ML IV SCH ×3 (05:37→21:13)
--- NOTE | 2020-01-05 06:56 | Orthopedic Progress Note ---
Date of Service January 05, 2020 Assessment & Plan (1) History of total left knee replacement: Continue plan of care with antibiotics. Blood cultures pending. Patient will continue physical therapy/Occupational Therapy and she will remain weightbearing as tolerated Continue aspirin for DVT prophylaxis. She understands she may be sent home with a PICC line for IV antibiotics. The medical team will continue following up with her. She will be discharged in a couple days, when medically stable. Admission and Anticipated Discharge Date Admission Date: January 04, 2020 Justin Willard was seen and examined at bedside today with Dr. Parekh. She is 1 day status post irrigation debridement and poly exchange for left total knee arthroplasty. Patient states her pain has been mostly well controlled. She has gotten out of bed and ambulated. She reports stiffness and mild pain in the left knee. She denies any significant numbness or tingling. She denies any fever, chills, sweats, shortness of breath, lightheadedness. She is willing to stay as long as necessary. She has no new complaints today. Physical Exam Musculoskeletal: Montse was lying comfortably in bed, in no acute distress upon arrival today. She is alert and oriented x3. Left lower extremity: Able to appropriately plantarflex and dorsiflex her left foot. Neurovascularly intact. Overlying dressings remain in place with no evidence of discharge. Dressings appeared clean, dry, and intact. Results & Data ([facility]) Vital Signs (Past 12 Hours) Vital Signs Temp Pulse Resp BP Pulse Ox 01/05/20 04:01 36.4 C L 76 14 129/76 95 01/04/20 23:26 36.9 C 81 14 146/69 H 93 01/04/20 19:11 36.7 C 67 17 138/74 95 PG Care Time/CCT Total # of Minutes Spent Total Time Spent with Patient: Total time spent is greater than 50% in coordination of care (as documented) at patient's floor/unit and/or counseling p atient: Coding Level of Care Code None Diagnoses History of total left knee replacement Z96.652
[2020-01-05] MEDS ORDERED: dexAMETHasone 4 MG TAB PO SCH (08:00)
[2020-01-05 08:49] LABS: Hematocrit (blood only) 35.7 % (37-47); Hemoglobin 11.5 g/dL (12.0-16.0); Mean Corpuscular Hemoglobin 31.5 pg (25-34); Mean Corpuscular Hgb Conc 32.2 g/dL (32-36); Mean Corpuscular Volume 97.8 fL (80-100); Mean Platelet Volume 10.2 fL (7.4-10.4); Platelet Count 363 K/uL (130-400); RDW Coefficient of Variation 14.1 % (11.5-14.5); RDW Standard Deviation 50.4 fL (36.4-46.3); Red Blood Count 3.65 M/uL (4.2-5.4); White Blood Count 13.59 K/uL (4.8-10.8)
[2020-01-05 09:25] LABS: BUN Creatinine Ratio 14.6 (10-20); Calcium 9.5 mg/dl (8.5-10.1); Creatinine Clr Calc Pharmacy 62.4 ml/min; Est GFR (Non-African American) 64.7; Potassium 4.2 mmol/L (3.5-5.1)
[2020-01-05] MEDS: GABAPENTIN 300 MG CAP PO SCH ×3 (09:31→20:43)
[2020-01-05] MEDS: DOCUSATE SODIUM 100 MG CAP PO SCH ×2 (09:31→20:43)
[2020-01-05] MEDS: ASPIRIN 81 MG ECTAB PO SCH ×2 (09:32→20:43)
[2020-01-05] MEDS: amLODIPine BESYLATE 5 MG TAB PO SCH (09:32)
[2020-01-05] MEDS: nadoloL 40 MG TAB PO SCH (09:32)
[2020-01-05] MEDS: FAMOTIDINE 20 MG TAB PO SCH ×2 (09:32→20:44)
[2020-01-05] MEDS: DULoxetine HCL 60 MG CAP PO SCH (09:32)
[2020-01-05] MEDS: CHOLECALCIFEROL 1,000 UNITS 25 MCG TAB PO SCH (09:33)
[2020-01-05] MEDS: PANTOprazole 40 MG TAB PO SCH (09:34)
[2020-01-05] MEDS: ADVANCED PROBIOTIC 1250 MG CAPSULE PO SCH (09:34)
[2020-01-05] MEDS: MULTIVITAMIN TAB PO SCH (09:34)
[2020-01-05] MEDS: oxyCODONE HCL IR 5 MG TAB (IMMEDIATE RELEASE) PO PRN ×2 (09:39→20:43)
--- NOTE | 2020-01-05 16:53 | Hospitalist Progress Note ---
Date of Service January 05, 2020 Assessment & Plan (1) Infection of total left knee replacement: This is a 74yo F with a PMH of recent cat bite cellulitis of LLE, anxiety, depression, GAITAN cirrhosis, non-Hodgkin's lymphoma s/p chemo and radiation in remission and other medical problems listed below who presents acute L periprosthetic knee infection s/p irrigation debridement with poly exchange by Dr. Parekh. -Admitted with LLE cat bite cellulitis 2 weeks ago and was treated with IV vanc and zosyn empirically. No growth on blood/wound cultures -Developed persistent L knee pain and ambulatory dysfunction over the past week and saw Dr. Parekh in clinic yesterday, who performed joint aspiration with synovial wbc of 30K concerning for periprosthetic knee infection/septic joint -POD #1 s/p irrigation debridement with poly exchange by Dr. Parekh -Repeat L knee gram stain pending. Added blood cultures -Received cefazolin and dexamethasone pre-operatively and is now on vanc. Will add zosyn. Routine ID consult placed -Per ortho for pain control, wound care, anticoagulation and activities. Monitor H&H, PT/OT when appropriate -Gram stain of the left knee aspirate did not show any growth and blood cultures have been negative-seems to be inflammatory and not infective -Awaiting ID recommendation (2) Hypertension: Normotensive. Continue amlodipine and nadolol Continue current medication (3) GERD (gastroesophageal reflux disease): (4) Barretts esophagus: Continue Pepcid, Protonix (5) Anxiety: (6) Depression: Continue Cymbalta (7) Non-Hodgkin lymphoma: S/p chemo and XRT, in remission PCP: Ruth Dispo:Per primary service Admission and Anticipated Discharge Date Admission Date: January 05, 2020 Subjective 01/05/2020 The patient was seen and examined in medical floor She has been complaining of left knee pain but otherwise stable Denies any fever and/or chills, no nausea and or vomiting Review of Systems Review of Systems: All systems reviewed and are unremarkable except as noted below Musculoskeletal: Left knee pain Physical Exam Physical Exam: Sitting in a chair without any acute distress Constitutional: well developed, well nourished, + acute distress (Due to left knee pain) and + obese Eyes: PERRL, conjunctivae normal, anicteric sclerae ENMT: external ear and nose normal, oropharynx normal Neck: trachea midline, no thyromegaly Respiratory: no respiratory distress Auscultation: lungs clear to auscultation bilaterally Cardiovascular: Rate/Rhythm: regular rate and regular rhythm Heart Sounds: no murmur Extremities: no edema Gastrointestinal (Abdomen): Inspection/Auscultation: normal bowel sounds; abdomen not distended Percussion/Palpation: abdomen soft; abdomen nontender Neurologic: Alert, awake and oriented x3 Psychiatric: A+Ox3, euthymic affect Lymphatic: no cervical or axillary lymphadenopathy Results & Data Results & Data ([facility]) Vital Signs (Past 12 Hours) Vital Signs Temp Pulse Resp BP Pulse Ox 01/05/20 15:29 36.8 C 67 17 134/72 95 01/05/20 11:30 36.7 C 66 16 115/66 98 01/05/20 07:37 36.6 C 67 16 147/81 H 95 Laboratory Results Short CBC 01/05/20 Range/Units 07:53 WBC 13.59 H (4.8-10.8) K/uL Hgb 11.5 L (12.0-16.0) g/dL Hct 35.7 L (37-47) % Plt Count 363 (130-400) K/uL BMP 01/05/20 07:53 Sodium 141 Potassium 4.2 Chloride 108 H Carbon Dioxide 27 BUN 13 Creatinine 0.88 Glucose 159 H Calcium 9.5 Urine 01/04/20 Range/Units 17:55 Urine Color Dark Yellow Urine Appearance Cloudy A (Clear) Urine pH 6.0 (4.5-7.5) Ur Specific [place] 1.025 (1.000-1.030) Urine Protein Trace H (Negative) Urine Glucose (UA) Negative (Negative) Medications Administered Current Inpatient Medications Amlodipine Besylate (Amlodipine Besylate 5 Mg Tab) 5 mg PO QAM RULA Stop: 02/04/20 08:59 Last Admin: 01/05/20 09:32 Dose: 5 mg Documented by: Aspirin (Aspirin 81 Mg Ectab) 81 mg PO BID RULA Stop: 02/03/20 20:59 Last Admin: 01/05/20 09:32 Dose: 81 mg Documented by: Bisacodyl (Bisacodyl 10 Mg Supp) 10 mg MA DAILY PRN PRN Reason: Constipation Stop: 02/03/20 12:42 Docusate Sodium (Docusate Sodium 100 Mg Cap) 100 mg PO BID RULA Stop: 02/03/20 20:59 Last Admin: 01/05/20 09:31 Dose: 100 mg Documented by: Duloxetine HCl (Duloxetine Hcl 60 Mg Cap) 60 mg PO QAM RULA Stop: 02/04/20 08:59 Last Admin: 01/05/20 09:32 Dose: 60 mg Documented by: Famotidine (Famotidine 20 Mg Tab) 20 mg PO BID RULA Stop: 02/03/20 20:59 Last Admin: 01/05/20 09:32 Dose: 20 mg Documented by: Furosemide (Furosemide 40 Mg Tab) 40 mg PO QAM PRN PRN Reason: Edema Stop: 02/03/20 16:35 Gabapentin (Gabapentin 300 Mg Cap) 300 mg PO TID RULA Stop: 02/03/20 20:59 Last Admin: 01/05/20 14:23 Dose: 300 mg Documented by: Hydromorphone HCl (Hydromorphone Inj 0.5 Mg/0.5 Ml Syr) 0.5 mg IV Q4H PRN PRN Reason: Pain or Pre PT Stop: 01/18/20 12:42 Piperacillin Sod/Tazobactam (Sod 3.375 gm/ Dextrose) 115 mls @ 28.75 mls/hr IV Q8H [facility]; Protocol Stop: 02/15/20 21:59 Last Admin: 01/05/20 14:23 Dose: 28.8 mls/hr Documented by: Vancomycin HCl 1,250 mg/ (Sodium Chloride) 275 mls @ 200 mls/hr IV Q12H [facility]; Protocol Stop: 02/16/20 19:59 Lactobacillus Acidoph/Casei/Rhamnos (Advanced Probiotic 1250 Mg Capsule) 2 cap PO DAILY RULA Stop: 02/04/20 08:59 Last Admin: 01/05/20 09:34 Dose: 2 cap Documented by: Loperamide HCl (Loperamide Hcl 2 Mg Cap) 2 mg PO QID PRN PRN Reason: Diarrhea Stop: 02/03/20 16:35 Magnesium Hydroxide (Magnesium Hydroxide Susp 30 Ml Udc) 30 ml PO Q6H PRN PRN Reason: Constipation Stop: 02/03/20 12:42 Metoclopramide HCl (Metoclopramide Hcl Inj 5 Mg/Ml 2 Ml Vial) 10 mg IV Q6H PRN PRN Reason: Nausea And Vomiting Stop: 02/03/20 12:42 Miscellaneous Information (Vancomycin Consult Active) 1 ea N/A UD PRN PRN Reason: Consult Stop: 02/03/20 12:42 Miscellaneous Information (Piperacill/Tazobac Consult Active) 1 ea N/A UD PRN PRN Reason: Consult Stop: 02/03/20 16:32 Multivitamins (Multivitamin Tab) 1 tab PO [facility] Stop: 02/04/20 08:59 Last Admin: 01/05/20 09:34 Dose: 1 tab Documented by: Nadolol (Nadolol 40 Mg Tab) 20 mg PO [facility] Stop: 02/04/20 08:59 Last Admin: 01/05/20 09:32 Dose: 20 mg Documented by: Naloxone HCl (Naloxone Hcl 0.4 Mg/1 Ml Vial/Carp) 0.1 mg IV Q5M PRN PRN Reason: Oversedation/Resp Depression Stop: 02/03/20 12:42 Ondansetron HCl (Ondansetron Inj 2 Mg/Ml 2 Ml Vial) 4 mg IV Q6H PRN PRN Reason: Nausea And Vomiting Stop: 02/03/20 12:42 Oxycodone HCl (Oxycodone Hcl Ir 5 Mg Tab (Immediate Release)) 5 mg PO Q4H PRN PRN Reason: Pain or Pre PT Stop: 01/18/20 12:42 Last Admin: 01/05/20 09:39 Dose: 5 mg Documented by: Pantoprazole Sodium (Pantoprazole 40 Mg Tab) 40 mg PO [facility] Stop: 02/04/20 08:59 Last Admin: 01/05/20 09:34 Dose: 40 mg Documented by: Sennosides (Senna 8.6 Mg Tab) 17.2 mg PO [facility] Stop: 02/03/20 20:59 Last Admin: 01/04/20 21:20 Dose: 17.2 mg Documented by: Vitamin D (Cholecalciferol 1,000 Units 25 Mcg Tab) 1,000 units PO [facility] Stop: 02/04/20 08:59 Last Admin: 01/05/20 09:33 Dose: 1,000 units Documented by:
[2020-01-05] MEDS: VANCOMYCIN HCL 1,250 MG in SODIUM CHLORIDE 0.9% 250 ML IV SCH (19:41)
[2020-01-05] MEDS: SENNA 8.6 MG TAB PO SCH (20:44)
[2020-01-06] MEDS: PIPERACILLIN/TAZOBACTAM 3.375 GM in DEXTROSE 5% 100 ML IV SCH (06:02)
[2020-01-06 07:55] LABS: Eosinophils # (auto) 0.01 K/uL (0-0.5); Eosinophils % (auto) 0.1 %; Hematocrit (blood only) 37.1 % (37-47); Hemoglobin 12.1 g/dL (12.0-16.0); Immature Granulocytes # (auto) 0.05 K/uL (0.00-0.02); Immature Granulocytes % (auto) 0.4 %; Lymphocytes # (auto) 0.95 K/uL (1.2-3.4); Mean Corpuscular Hemoglobin 32.2 pg (25-34); Mean Corpuscular Hgb Conc 32.6 g/dL (32-36); Mean Corpuscular Volume 98.7 fL (80-100); Mean Platelet Volume 9.7 fL (7.4-10.4); Monocytes # (auto) 1.53 K/uL (0.11-0.59); Monocytes % (auto) 12.8 %; Neutrophils # (auto) 9.37 K/uL (1.4-6.5); Neutrophils % (auto) 78.7 %; Platelet Count 381 K/uL (130-400); RDW Coefficient of Variation 14.4 % (11.5-14.5); Red Blood Count 3.76 M/uL (4.2-5.4); White Blood Count 11.91 K/uL (4.8-10.8)
[2020-01-06] MEDS: FAMOTIDINE 20 MG TAB PO SCH ×2 (08:35→19:37)
[2020-01-06] MEDS: nadoloL 40 MG TAB PO SCH (08:35)
[2020-01-06] MEDS: GABAPENTIN 300 MG CAP PO SCH ×3 (08:35→19:36)
[2020-01-06] MEDS: ASPIRIN 81 MG ECTAB PO SCH ×2 (08:35→19:36)
[2020-01-06] MEDS: PANTOprazole 40 MG TAB PO SCH (08:35)
[2020-01-06] MEDS: ADVANCED PROBIOTIC 1250 MG CAPSULE PO SCH (08:36)
[2020-01-06] MEDS: DOCUSATE SODIUM 100 MG CAP PO SCH ×2 (08:37→19:36)
[2020-01-06] MEDS: DULoxetine HCL 60 MG CAP PO SCH (08:37)
[2020-01-06] MEDS: CHOLECALCIFEROL 1,000 UNITS 25 MCG TAB PO SCH (08:37)
[2020-01-06] MEDS: MULTIVITAMIN TAB PO SCH (08:37)
[2020-01-06] MEDS: amLODIPine BESYLATE 5 MG TAB PO SCH (08:38)
--- NOTE | 2020-01-06 08:39 | Orthopedic Progress Note ---
Date of Service January 06, 2020 Assessment & Plan (1) Septic joint of left knee joint: Overall she is doing about as well as expected. She is currently on Zosyn and vancomycin IV. She has already had a virtual visit from [facility] infectious disease. The blood cultures and intraoperative cultures are negative at this time. She can be weightbearing as tolerated. She is on aspirin for DVT prophylaxis. I plan to remove the drains tomorrow. We will wait for blood cultures to come back negative before we do a PICC line placement. She will likely need 6 weeks of IV antibiotics upon discharge. I told her she would likely be discharged home on Friday. Present on Admission?: Yes Admission and Anticipated Discharge Date Admission Date: January 05, 2020 Justin Willard was seen and examined at bedside this morning. Overall she is doing fairly well. She is having too much pain in the left knee. She has been up and ambulating to the bathroom. She has no new complaints. Physical Exam Physical Exam: On physical examination of the left knee, the dressing is clean and dry. The Hemovac drains are to suction. She is neurovascular intact. Results & Data ([facility]) Vital Signs (Past 12 Hours) Vital Signs Temp Pulse Resp BP Pulse Ox 01/06/20 08:21 36.7 C 64 16 138/66 97 01/05/20 23:04 36.9 C 79 14 128/71 95 PG Care Time/CCT Total # of Minutes Spent Total Time Spent with Patient: Total time spent is greater than 50% in coordin ation of care (as documented) at patient's floor/unit and/or counseling patient: Coding Level of Care Code None Diagnoses Septic joint of left knee joint M00.9
[2020-01-06] MEDS: VANCOMYCIN HCL 1,250 MG in SODIUM CHLORIDE 0.9% 250 ML IV SCH (08:44)
[2020-01-06 09:11] LABS: Calcium 9.7 mg/dl (8.5-10.1); Creatinine Clr Calc Pharmacy 72.3 ml/min; Est GFR (African American) 89.6; Est GFR (Non-African American) 77.3; Potassium 4.1 mmol/L (3.5-5.1)
[2020-01-06] MEDS ORDERED: cefTRIAXone SODIUM 1,000 MG in DEXTROSE 5% 50 ML IV SCH (09:15)
[2020-01-06] MEDS: cefTRIAXone SODIUM 2,000 MG in DEXTROSE 5% 50 ML IV SCH (10:17)
--- NOTE | 2020-01-06 13:58 | Hospitalist Progress Note ---
Date of Service January 06, 2020 Assessment & Plan (1) Infection of total left knee replacement: This is a 74yo F with a PMH of recent cat bite cellulitis of LLE, anxiety, depression, GAITAN cirrhosis, non-Hodgkin's lymphoma s/p chemo and radiation in remission and other medical problems listed below who presents acute L periprosthetic knee infection s/p irrigation debridement with poly exchange by Dr. Parekh. -Admitted with LLE cat bite cellulitis 2 weeks ago and was treated with IV vanc and zosyn empirically. No growth on blood/wound cultures -Developed persistent L knee pain and ambulatory dysfunction over the past week and saw Dr. Parekh in clinic yesterday, who performed joint aspiration with synovial wbc of 30K concerning for periprosthetic knee infection/septic joint -POD #2 s/p irrigation debridement with poly exchange by Dr. Parekh -Repeat L knee gram stain pending. Added blood cultures -Received cefazolin and dexamethasone pre-operatively and is now on vanc. Will add zosyn. Routine ID consult placed -Per ortho for pain control, wound care, anticoagulation and activities. Monitor H&H, PT/OT when appropriate -Gram stain of the left knee aspirate did not show any growth and blood cultures have been negative-seems to be inflammatory and not infective -Appreciate ID input and recommendation She will need intravenous ceftriaxone 1 g daily for 6 weeks And oral Augmentin 500 mg 3 times daily following IV antibiotic for a total of 6 months. Weekly CBC, CMP, CRP and ESR during the course of antibiotic And every 2 weeks for 3 months after finishing the course. (2) Hypertension: Normotensive. Continue amlodipine and nadolol Continue current medication (3) GERD (gastroesophageal reflux disease): (4) Barretts esophagus: Continue Pepcid, Protonix (5) Anxiety: (6) Depression: Continue Cymbalta (7) Non-Hodgkin lymphoma: S/p chemo and XRT, in remission PCP: Ruth Dispo:Per primary service Admission and Anticipated Discharge Date Admission Date: January 05, 2020 Subjective 01/05/2020 The patient was seen and examined in medical floor She has been complaining of left knee pain but otherwise stable Denies any fever and/or chills, no nausea and or vomiting 01/06/2020 The patient was seen and examined in medical floor She has had physical therapy today and complains more pain in the left knee Denies any other symptoms Review of Systems Review of Systems: All systems reviewed and are unremarkable except as noted below Musculoskeletal: Left knee pain Physical Exam Physical Exam: Sitting in a chair without any acute distress Constitutional: well developed, well nourished, + acute distress (Due to left knee pain) and + obese Eyes: PERRL, conjunctivae normal, anicteric sclerae ENMT: external ear and nose normal, oropharynx normal Neck: trachea midline, no thyromegaly Respiratory: no respiratory distress Auscultation: lungs clear to auscultation bilaterally Cardiovascular: Rate/Rhythm: regular rate and regular rhythm Heart Sounds: no murmur Extremities: no edema Gastrointestinal (Abdomen): Inspection/Auscultation: normal bowel sounds; abdomen not distended Percussion/Palpation: abdomen soft; abdomen nontender Musculoskeletal: Left knee pain with movement Psychiatric: A+Ox3, euthymic affect Lymphatic: no cervical or axillary lymphadenopathy Results & Data Results & Data ([facility]) Vital Signs (Past 12 Hours) Vital Signs Temp Pulse Resp BP Pulse Ox 01/06/20 08:21 36.7 C 64 16 138/66 97 Laboratory Results Short CBC 01/06/20 Range/Units 07:38 WBC 11.91 H (4.8-10.8) K/uL Hgb 12.1 (12.0-16.0) g/dL Hct 37.1 (37-47) % Plt Count 381 (130-400) K/uL BMP 01/06/20 07:38 Sodium 139 Potassium 4.1 Chloride 107 Carbon Dioxide 25 BUN 14 Creatinine 0.76 Glucose 140 H Calcium 9.7 Medications Administered Current Inpatient Medications Amlodipine Besylate (Amlodipine Besylate 5 Mg Tab) 5 mg PO QAM [facility] Stop: 02/04/20 08:59 Last Admin: 01/06/20 08:38 Dose: 5 mg Documented by: Aspirin (Aspirin 81 Mg Ectab) 81 mg PO BID [facility] Stop: 02/03/20 20:59 Last Admin: 01/06/20 08:35 Dose: 81 mg Documented by: Bisacodyl (Bisacodyl 10 Mg Supp) 10 mg [place] DAILY PRN PRN Reason: Constipation Stop: 02/03/20 12:42 Docusate Sodium (Docusate Sodium 100 Mg Cap) 100 mg PO BID [facility] Stop: 02/03/20 20:59 Last Admin: 01/06/20 08:37 Dose: 100 mg Documented by: Duloxetine HCl (Duloxetine Hcl 60 Mg Cap) 60 mg PO QAM [facility] Stop: 02/04/20 08:59 Last Admin: 01/06/20 08:37 Dose: 60 mg Documented by: Famotidine (Famotidine 20 Mg Tab) 20 mg PO BID [facility] Stop: 02/03/20 20:59 Last Admin: 01/06/20 08:35 Dose: 20 mg Documented by: Furosemide (Furosemide 40 Mg Tab) 40 mg PO QAM PRN PRN Reason: Edema Stop: 02/03/20 16:35 Gabapentin (Gabapentin 300 Mg Cap) 300 mg PO TID [facility] Stop: 02/03/20 20:59 Last Admin: 01/06/20 13:40 Dose: 300 mg Documented by: Hydromorphone HCl (Hydromorphone Inj 0.5 Mg/0.5 Ml Syr) 0.5 mg IV Q4H PRN PRN Reason: Pain or Pre PT Stop: 01/18/20 12:42 Ceftriaxone Sodium 2,000 mg/ (Dextrose) 70 mls @ 140 mls/hr IV DAILY [facility] Stop: 02/17/20 09:59 Last Infusion: 01/06/20 10:47 Dose: Infused Documented by: Lactobacillus Acidoph/Casei/Rhamnos (Advanced Probiotic 1250 Mg Capsule) 2 cap PO DAILY [facility] Stop: 02/04/20 08:59 Last Admin: 01/06/20 08:36 Dose: 2 cap Documented by: Loperamide HCl (Loperamide Hcl 2 Mg Cap) 2 mg PO QID PRN PRN Reason: Diarrhea Stop: 02/03/20 16:35 Magnesium Hydroxide (Magnesium Hydroxide Susp 30 Ml Udc) 30 ml PO Q6H PRN PRN Reason: Constipation Stop: 02/03/20 12:42 Metoclopramide HCl (Metoclopramide Hcl Inj 5 Mg/Ml 2 Ml Vial) 10 mg IV Q6H PRN PRN Reason: Nausea And Vomiting Stop: 02/03/20 12:42 Multivitamins (Multivitamin Tab) 1 tab PO QAM [facility] Stop: 02/04/20 08:59 Last Admin: 01/06/20 08:37 Dose: 1 tab Documented by: Nadolol (Nadolol 40 Mg Tab) 20 mg PO QAM [facility] Stop: 02/04/20 08:59 Last Admin: 01/06/20 08:35 Dose: 20 mg Documented by: Naloxone HCl (Naloxone Hcl 0.4 Mg/1 Ml Vial/Carp) 0.1 mg IV Q5M PRN PRN Reason: Oversedation/Resp Depression Stop: 02/03/20 12:42 Ondansetron HCl (Ondansetron Inj 2 Mg/Ml 2 Ml Vial) 4 mg IV Q6H PRN PRN Reason: Nausea And Vomiting Stop: 02/03/20 12:42 Oxycodone HCl (Oxycodone Hcl Ir 5 Mg Tab (Immediate Release)) 5 mg PO Q4H PRN PRN Reason: Pain or Pre PT Stop: 01/18/20 12:42 Last Admin: 01/05/20 20:43 Dose: 5 mg Documented by: Pantoprazole Sodium (Pantoprazole 40 Mg Tab) 40 mg PO [facility] Stop: 02/04/20 08:59 Last Admin: 01/06/20 08:35 Dose: 40 mg Documented by: Sennosides (Senna 8.6 Mg Tab) 17.2 mg PO [facility] Stop: 02/03/20 20:59 Last Admin: 01/05/20 20:44 Dose: 17.2 mg Documented by: Vitamin D (Cholecalciferol 1,000 Units 25 Mcg Tab) 1,000 units PO [facility] Stop: 02/04/20 08:59 Last Admin: 01/06/20 08:37 Dose: 1,000 units Documented by:
[2020-01-06] MEDS: SENNA 8.6 MG TAB PO SCH (19:36)
[2020-01-06] MEDS: oxyCODONE HCL IR 5 MG TAB (IMMEDIATE RELEASE) PO PRN (19:40)
[2020-01-07] MEDS: nadoloL 40 MG TAB PO SCH (08:19)
[2020-01-07] MEDS: ASPIRIN 81 MG ECTAB PO SCH ×2 (08:20→20:11)
[2020-01-07] MEDS: GABAPENTIN 300 MG CAP PO SCH ×3 (08:20→20:11)
[2020-01-07] MEDS: amLODIPine BESYLATE 5 MG TAB PO SCH (08:20)
[2020-01-07] MEDS: MULTIVITAMIN TAB PO SCH (08:20)
[2020-01-07] MEDS: DOCUSATE SODIUM 100 MG CAP PO SCH ×2 (08:20→20:11)
[2020-01-07] MEDS: ADVANCED PROBIOTIC 1250 MG CAPSULE PO SCH (08:21)
[2020-01-07] MEDS: FAMOTIDINE 20 MG TAB PO SCH ×2 (08:21→20:12)
[2020-01-07] MEDS: DULoxetine HCL 60 MG CAP PO SCH (08:21)
[2020-01-07] MEDS: PANTOprazole 40 MG TAB PO SCH (08:21)
[2020-01-07] MEDS: CHOLECALCIFEROL 1,000 UNITS 25 MCG TAB PO SCH (08:21)
[2020-01-07] MEDS: cefTRIAXone SODIUM 2,000 MG in DEXTROSE 5% 50 ML IV SCH (08:33)
--- NOTE | 2020-01-07 08:56 | Orthopedic Progress Note ---
Date of Service January 07, 2020 Assessment & Plan (1) Septic joint of left knee joint: Overall she is doing as well as expected. She is currently on IV antibiotics. The current wound cultures have not grown anything to date. We are still waiting for final blood cultures. She will likely need a PICC line placed in 6 weeks of IV antibiotics. I did a PICC line consent for her at bedside today. She will likely be in the hospital throughout the day today and hopefully be discharged to home tomorrow if the blood cultures come back negative and were able to get a PICC line placed and set up with home antibiotics. Present on Admission?: Yes Admission and Anticipated Discharge Date Admission Date: January 05, 2020 Justin Willard was seen and examined at bedside this morning. Overall she is doing fairly well. She still having some soreness in her left knee. She has been up and ambulating. She went into the hallways yesterday. She is getting IV antibiotics. The dressing has been changed and the drains have been pulled. She has no new complaints. Physical Exam Physical Exam: On physical examination of the left knee, the dressing has been changed and the current dressing is clean and dry. The drains been pulled. She still has a lot of swelling of her left leg compared to her right. She has active dorsiflexion plantarflexion of her left ankle. Results & Data ([facility]) Vital Signs (Past 12 Hours) Vital Signs Temp Pulse Resp BP Pulse Ox 01/07/20 07:10 36.4 C L 65 16 150/70 H 97 01/06/20 23:18 36.9 C 71 16 149/76 H 98 PG Care Time/CCT Total # of Minutes Spent Total Time Spent with Patient: Total time spent is greater than 50% in coordination of care (as documented) at patient's floor/unit and/or counseling patient: Coding Level of Care Code None Diagnoses Septic joint of left knee joint M00.9
[2020-01-07] MEDS: oxyCODONE HCL IR 5 MG TAB (IMMEDIATE RELEASE) PO PRN ×2 (09:59→23:17)
--- NOTE | 2020-01-07 15:58 | Hospitalist Progress Note ---
Date of Service January 07, 2020 Assessment & Plan (1) Infection of total left knee replacement: This is a 74yo F with a PMH of recent cat bite cellulitis of LLE, anxiety, depression, GAITAN cirrhosis, non-Hodgkin's lymphoma s/p chemo and radiation in remission and other medical problems listed below who presents acute L periprosthetic knee infection s/p irrigation debridement with poly exchange by Dr. Parekh. -Admitted with LLE cat bite cellulitis 2 weeks ago and was treated with IV vanc and zosyn empirically. No growth on blood/wound cultures -Developed persistent L knee pain and ambulatory dysfunction over the past week and saw Dr. Parekh in clinic yesterday, who performed joint aspiration with synovial wbc of 30K concerning for periprosthetic knee infection/septic joint -POD #2 s/p irrigation debridement with poly exchange by Dr. Parekh -Repeat L knee gram stain pending. Added blood cultures -Received cefazolin and dexamethasone pre-operatively and is now on vanc. Will add zosyn. Routine ID consult placed -Per ortho for pain control, wound care, anticoagulation and activities. Monitor H&H, PT/OT when appropriate -Gram stain of the left knee aspirate did not show any growth and blood cultures have been negative-seems to be inflammatory and not infective -Appreciate ID input and recommendation -Discussed in detail with the patient about the use of antibiotics as recommended by ID physician in [place] She will need intravenous ceftriaxone 1 g daily for 6 weeks And oral Augmentin 500 mg 3 times daily following IV antibiotic for a total of 6 months. Weekly CBC, CMP, CRP and ESR during the course of antibiotic And every 2 weeks for 3 months after finishing the course. (2) Hypertension: Normotensive. Continue amlodipine and nadolol Continue current medication Controlled now (3) GERD (gastroesophageal reflux disease): (4) Barretts esophagus: Continue Pepcid, Protonix (5) Anxiety: (6) Depression: Continue Cymbalta (7) Non-Hodgkin lymphoma: S/p chemo and XRT, in remission Medically stable to be discharged PCP: Ruth Dispo:Per primary service Admission and Anticipated Discharge Date Admission Date: January 05, 2020 Subjective 01/05/2020 The patient was seen and examined in medical floor She has been complaining of left knee pain but otherwise stable Denies any fever and/or chills, no nausea and or vomiting 01/06/2020 The patient was seen and examined in medical floor She has had physical therapy today and complains more pain in the left knee Denies any other symptoms 01/07/2020 The patient was seen and examined in medical floor She has had physical therapy and complains to have pain in the left knee Denies any other significant symptoms Review of Systems Review of Systems: All systems reviewed and are unremarkable except as noted below Musculoskeletal: Left knee pain Physical Exam Physical Exam: Sitting in a chair without any acute distress Constitutional: well developed, well nourished, + acute distress (Due to left knee pain) and + obese Eyes: PERRL, conjunctivae normal, anicteric sclerae ENMT: external ear and nose normal, oropharynx normal Neck: trachea midline, no thyromegaly Respiratory: no respiratory distress Auscultation: lungs clear to auscultation bilaterally Cardiovascular: Rate/Rhythm: regular rate and regular rhythm Heart Sounds: no murmur Extremities: no edema Gastrointestinal (Abdomen): Inspection/Auscultation: normal bowel sounds; abdomen not distended Percussion/Palpation: abdomen soft; abdomen nontender Musculoskeletal: Left knee pain with any movement of the left Neurologic: Alert awake and oriented x3. No focal sensory and motor deficit appreciated Psychiatric: A+Ox3, euthymic affect Lymphatic: no cervical or axillary lymphadenopathy Results & Data Results & Data ([facility]) Vital Signs (Past 12 Hours) Vital Signs Temp Pulse Resp BP Pulse Ox 01/07/20 15:20 36.5 C 65 16 147/82 H 94 01/07/20 07:10 36.4 C L 65 16 150/70 H 97 Medications Administered Current Inpatient Medications Amlodipine Besylate (Amlodipine Besylate 5 Mg Tab) 5 mg PO QAM [facility] Stop: 02/04/20 08:59 Last Admin: 01/07/20 08:20 Dose: 5 mg Documented by: Aspirin (Aspirin 81 Mg Ectab) 81 mg PO BID [facility] Stop: 02/03/20 20:59 Last Admin: 01/07/20 08:20 Dose: 81 mg Documented by: Bisacodyl (Bisacodyl 10 Mg Supp) 10 mg [place] DAILY PRN PRN Reason: Constipation Stop: 02/03/20 12:42 Docusate Sodium (Docusate Sodium 100 Mg Cap) 100 mg PO BID [facility] Stop: 02/03/20 20:59 Last Admin: 01/07/20 08:20 Dose: 100 mg Documented by: Duloxetine HCl (Duloxetine Hcl 60 Mg Cap) 60 mg PO QAM [facility] Stop: 02/04/20 08:59 Last Admin: 01/07/20 08:21 Dose: 60 mg Documented by: Famotidine (Famotidine 20 Mg Tab) 20 mg PO BID [facility] Stop: 02/03/20 20:59 Last Admin: 01/07/20 08:21 Dose: 20 mg Documented by: Furosemide (Furosemide 40 Mg Tab) 40 mg PO QAM PRN PRN Reason: Edema Stop: 02/03/20 16:35 Gabapentin (Gabapentin 300 Mg Cap) 300 mg PO TID [facility] Stop: 02/03/20 20:59 Last Admin: 01/07/20 13:57 Dose: 300 mg Documented by: Hydromorphone HCl (Hydromorphone Inj 0.5 Mg/0.5 Ml Syr) 0.5 mg IV Q4H PRN PRN Reason: Pain or Pre PT Stop: 01/18/20 12:42 Ceftriaxone Sodium 2,000 mg/ (Dextrose) 70 mls @ 140 mls/hr IV DAILY [facility] Stop: 02/17/20 09:59 Last Infusion: 01/07/20 09:15 Dose: Infused Documented by: Lactobacillus Acidoph/Casei/Rhamnos (Advanced Probiotic 1250 Mg Capsule) 2 cap PO DAILY [facility] Stop: 02/04/20 08:59 Last Admin: 01/07/20 08:21 Dose: 2 cap Documented by: Loperamide HCl (Loperamide Hcl 2 Mg Cap) 2 mg PO QID PRN PRN Reason: Diarrhea Stop: 02/03/20 16:35 Magnesium Hydroxide (Magnesium Hydroxide Susp 30 Ml Udc) 30 ml PO Q6H PRN PRN Reason: Constipation Stop: 02/03/20 12:42 Metoclopramide HCl (Metoclopramide Hcl Inj 5 Mg/Ml 2 Ml Vial) 10 mg IV Q6H PRN PRN Reason: Nausea And Vomiting Stop: 02/03/20 12:42 Multivitamins (Multivitamin Tab) 1 tab PO QAM [facility] Stop: 02/04/20 08:59 Last Admin: 01/07/20 08:20 Dose: 1 tab Documented by: Nadolol (Nadolol 40 Mg Tab) 20 mg PO QAM [facility] Stop: 02/04/20 08:59 Last Admin: 01/07/20 08:19 Dose: 20 mg Documented by: Naloxone HCl (Naloxone Hcl 0.4 Mg/1 Ml Vial/Carp) 0.1 mg IV Q5M PRN PRN Reason: Oversedation/Resp Depression Stop: 02/03/20 12:42 Ondansetron HCl (Ondansetron Inj 2 Mg/Ml 2 Ml Vial) 4 mg IV Q6H PRN PRN Reason: Nausea And Vomiting Stop: 02/03/20 12:42 Oxycodone HCl (Oxycodone Hcl Ir 5 Mg Tab (Immediate Release)) 5 mg PO Q4H PRN PRN Reason: Pain or Pre PT Stop: 01/18/20 12:42 Last Admin: 01/07/20 09:59 Dose: 5 mg Documented by: Pantoprazole Sodium (Pantoprazole 40 Mg Tab) 40 mg PO [facility] Stop: 02/04/20 08:59 Last Admin: 01/07/20 08:21 Dose: 40 mg Documented by: Sennosides (Senna 8.6 Mg Tab) 17.2 mg PO [facility] Stop: 02/03/20 20:59 Last Admin: 01/06/20 19:36 Dose: 17.2 mg Documented by: Vitamin D (Cholecalciferol 1,000 Units 25 Mcg Tab) 1,000 units PO [facility] Stop: 02/04/20 08:59 Last Admin: 01/07/20 08:21 Dose: 1,000 units Documented by:
[2020-01-07] MEDS: SENNA 8.6 MG TAB PO SCH (20:11)
[2020-01-08 06:23] LABS: Basophils # (auto) 0.01 K/uL (0-0.2); Basophils % (auto) 0.1 %; Eosinophils # (auto) 0.25 K/uL (0-0.5); Eosinophils % (auto) 3.7 %; Hemoglobin 11.7 g/dL (12.0-16.0); Immature Granulocytes # (auto) 0.06 K/uL (0.00-0.02); Immature Granulocytes % (auto) 0.9 %; Lymphocytes # (auto) 1.32 K/uL (1.2-3.4); Lymphocytes % (auto) 19.6 %; Mean Corpuscular Hemoglobin 31.9 pg (25-34); Mean Corpuscular Hgb Conc 32.5 g/dL (32-36); Mean Corpuscular Volume 98.1 fL (80-100); Monocytes % (auto) 16.3 %; Neutrophils % (auto) 59.4 %; Platelet Count 309 K/uL (130-400); RDW Coefficient of Variation 14.5 % (11.5-14.5); RDW Standard Deviation 51.6 fL (36.4-46.3); Red Blood Count 3.67 M/uL (4.2-5.4); White Blood Count 6.74 K/uL (4.8-10.8)
[2020-01-08 06:58] LABS: Albumin Level 2.5 gm/dl (3.4-5.0); BUN Creatinine Ratio 17.5 (10-20); Calcium 8.9 mg/dl (8.5-10.1); Creatinine Clr Calc Pharmacy 71.3 ml/min; Est GFR (African American) 88.2; Est GFR (Non-African American) 76.1; Potassium 3.9 mmol/L (3.5-5.1)
[2020-01-08 07:01] LABS: Albumin Globulin Ratio 0.8 (0.9-2); Bilirubin,Total 0.4 mg/dl (0.2-1); C Reactive Protein 1.15 mg/dl (0-0.29); Globulin 3.1 gm/dl (2.5-4.0); Total Protein 5.6 gm/dl (6.4-8.2)
--- NOTE | 2020-01-08 08:28 | Orthopedic Progress Note ---
Date of Service January 08, 2020 Assessment & Plan (1) Septic joint of left knee joint: So far the cultures have been negative. I ordered for PICC line to be placed today. She is already been seen by case management and it looks like IV Rocephin will be set up through home nursing. She can be discharged to home later today after the PICC line is placed and after seen by the medicine team. She can follow-up with orthopedics in 2 weeks. Present on Admission?: Yes Admission and Anticipated Discharge Date Admission Date: January 05, 2020 Justin Willard was seen and examined at bedside this morning. Overall she continues to improve. She is still having some soreness in her left knee but she is able to ambulate. She has no new complaints. Physical Exam Physical Exam: Lamination of the left knee, the left leg is still swollen. The dressing has been changed. Her left leg is out to full extension. She has active dorsiflexion and plantarflexion of her left ankle. Results & Data ([facility]) Vital Signs (Past 12 Hours) Vital Signs Temp Pulse Resp BP Pulse Ox 01/08/20 07:46 36.7 C 78 16 115/69 94 01/07/20 23:14 36.8 C 74 16 156/86 H 96 PG Care Time/CCT Total # of Minutes Spent Total Time Spent with Patient: Total time spent is greater than 50% in coordination of care (as documented) at patient's floor/unit and/or counseling patient: Coding Level of Care Code None Diagnoses Septic joint of left knee joint M00.9
[2020-01-08] MEDS: PANTOprazole 40 MG TAB PO SCH (09:54)
[2020-01-08] MEDS: ASPIRIN 81 MG ECTAB PO SCH (09:54)
[2020-01-08] MEDS: FAMOTIDINE 20 MG TAB PO SCH (09:54)
[2020-01-08] MEDS: MULTIVITAMIN TAB PO SCH (09:54)
[2020-01-08] MEDS: GABAPENTIN 300 MG CAP PO SCH ×2 (09:54→15:14)
[2020-01-08] MEDS: CHOLECALCIFEROL 1,000 UNITS 25 MCG TAB PO SCH (09:54)
[2020-01-08] MEDS: ADVANCED PROBIOTIC 1250 MG CAPSULE PO SCH (09:54)
[2020-01-08] MEDS: nadoloL 40 MG TAB PO SCH (09:55)
[2020-01-08] MEDS: DOCUSATE SODIUM 100 MG CAP PO SCH (09:55)
[2020-01-08] MEDS: amLODIPine BESYLATE 5 MG TAB PO SCH (09:55)
[2020-01-08] MEDS: DULoxetine HCL 60 MG CAP PO SCH (09:55)
[2020-01-08] MEDS: cefTRIAXone SODIUM 2,000 MG in DEXTROSE 5% 50 ML IV SCH (10:55)
[2020-01-08] MEDS: oxyCODONE HCL IR 5 MG TAB (IMMEDIATE RELEASE) PO PRN (11:00)
--- NOTE | 2020-01-08 11:04 | Hospitalist Progress Note ---
Date of Service January 08, 2020 Assessment & Plan (1) Infection of total left knee replacement: This is a 74yo F with a PMH of recent cat bite cellulitis of LLE, anxiety, depression, GAITAN cirrhosis, non-Hodgkin's lymphoma s/p chemo and radiation in remission and other medical problems listed below who presents acute L periprosthetic knee infection s/p irrigation debridement with poly exchange by Dr. Parekh. -Admitted with LLE cat bite cellulitis 2 weeks ago and was treated with IV vanc and zosyn empirically. No growth on blood/wound cultures -Developed persistent L knee pain and ambulatory dysfunction over the past week and saw Dr. Parekh in clinic yesterday, who performed joint aspiration with synovial wbc of 30K concerning for periprosthetic knee infection/septic joint -POD #23 s/p irrigation debridement with poly exchange by Dr. Parekh -Repeat L knee gram stain pending. Added blood cultures -Received cefazolin and dexamethasone pre-operatively and is now on vanc. Will add zosyn. Routine ID consult placed -Per ortho for pain control, wound care, anticoagulation and activities. Monitor H&H, PT/OT when appropriate -Gram stain of the left knee aspirate did not show any growth and blood cultures have been negative-seems to be inflammatory and not infective -Appreciate ID input and recommendation -Discussed in detail with the patient about the use of antibiotics as recommended by ID physician in [place] -She will be discharged home this afternoon by her primary service -Weekly stable to be discharged She will need intravenous ceftriaxone 1 g daily for 6 weeks And oral Augmentin 500 mg 3 times daily following IV antibiotic for a total of 6 months. Weekly CBC, CMP, CRP and ESR during the course of antibiotic And every 2 weeks for 3 months after finishing the course. Antibiotics prescription and the prescription for suggested labs have been giving to the medical case manager (2) Hypertension: Normotensive. Continue amlodipine and nadolol Continue current medication Controlled now (3) GERD (gastroesophageal reflux disease): (4) Barretts esophagus: Continue Pepcid, Protonix (5) Anxiety: (6) Depression: Continue Cymbalta (7) Non-Hodgkin lymphoma: S/p chemo and XRT, in remission Medically stable to be discharged PCP: Ruth Dispo:Per primary service Admission and Anticipated Discharge Date Admission Date: January 05, 2020 Subjective 01/05/2020 The patient was seen and examined in medical floor She has been complaining of left knee pain but otherwise stable Denies any fever and/or chills, no nausea and or vomiting 01/06/2020 The patient was seen and examined in medical floor She has had physical therapy today and complains more pain in the left knee Denies any other symptoms 01/07/2020 The patient was seen and examined in medical floor She has had physical therapy and complains to have pain in the left knee Denies any other significant symptoms 01/08/2020 The patient was seen and examined in medical floor She has been feeling a lot better and she will be discharged home this afternoon Review of Systems Review of Systems: All systems reviewed and are unremarkable except as noted below Musculoskeletal: Left knee pain Physical Exam Physical Exam: Sitting in a chair without any acute distress Constitutional: well developed, well nourished, + acute distress (Due to left knee pain) and + obese Eyes: PERRL, conjunctivae normal, anicteric sclerae ENMT: external ear and nose normal, oropharynx normal Neck: trachea midline, no thyromegaly Respiratory: no respiratory distress Auscultation: lungs clear to auscultation bilaterally Cardiovascular: Rate/Rhythm: regular rate and regular rhythm Heart Sounds: no murmur Extremities: no edema Gastrointestinal (Abdomen): Inspection/Auscultation: normal bowel sounds; abdomen not distended Percussion/Palpation: abdomen soft; abdomen nontender Musculoskeletal: Left knee pain with movement Neurologic: Alert, awake and oriented x3 Psychiatric: A+Ox3, euthymic affect Lymphatic: no cervical or axillary lymphadenopathy Results & Data Results & Data ([facility]) Vital Signs (Past 12 Hours) Vital Signs Temp Pulse Resp BP Pulse Ox 01/08/20 07:46 36.7 C 78 16 115/69 94 01/07/20 23:14 36.8 C 74 16 156/86 H 96 Laboratory Results Short CBC 01/08/20 Range/Units 05:43 WBC 6.74 (4.8-10.8) K/uL Hgb 11.7 L (12.0-16.0) g/dL Hct 36.0 L (37-47) % Plt Count 309 (130-400) K/uL BMP 01/08/20 05:43 Sodium 140 Potassium 3.9 Chloride 108 H Carbon Dioxide 28 BUN 14 Creatinine 0.77 Glucose 114 H Calcium 8.9 Liver Function 01/08/20 Range/Units 05:43 Total Bilirubin 0.4 (0.2-1) mg/dl AST 37 (15-37) U/L ALT 42 (12-78) U/L Alkaline Phosphatase 144 H (45-117) U/L Albumin 2.5 L (3.4-5.0) gm/dl Medications Administered Current Inpatient Medications Amlodipine Besylate (Amlodipine Besylate 5 Mg Tab) 5 mg PO QAM RULA Stop: 02/04/20 08:59 Last Admin: 01/08/20 09:55 Dose: 5 mg Documented by: Aspirin (Aspirin 81 Mg Ectab) 81 mg PO BID RULA Stop: 02/03/20 20:59 Last Admin: 01/08/20 09:54 Dose: 81 mg Documented by: Bisacodyl (Bisacodyl 10 Mg Supp) 10 mg DC DAILY PRN PRN Reason: Constipation Stop: 02/03/20 12:42 Docusate Sodium (Docusate Sodium 100 Mg Cap) 100 mg PO BID RLUA Stop: 02/03/20 20:59 Last Admin: 01/08/20 09:55 Dose: 100 mg Documented by: Duloxetine HCl (Duloxetine Hcl 60 Mg Cap) 60 mg PO QAM RULA Stop: 02/04/20 08:59 Last Admin: 01/08/20 09:55 Dose: 60 mg Documented by: Famotidine (Famotidine 20 Mg Tab) 20 mg PO BID RULA Stop: 02/03/20 20:59 Last Admin: 01/08/20 09:54 Dose: 20 mg Documented by: Furosemide (Furosemide 40 Mg Tab) 40 mg PO QAM PRN PRN Reason: Edema Stop: 02/03/20 16:35 Gabapentin (Gabapentin 300 Mg Cap) 300 mg PO TID RULA Stop: 02/03/20 20:59 Last Admin: 01/08/20 09:54 Dose: 300 mg Documented by: Hydromorphone HCl (Hydromorphone Inj 0.5 Mg/0.5 Ml Syr) 0.5 mg IV Q4H PRN PRN Reason: Pain or Pre PT Stop: 01/18/20 12:42 Ceftriaxone Sodium 2,000 mg/ (Dextrose) 70 mls @ 140 mls/hr IV DAILY RULA Stop: 02/17/20 09:59 Last Admin: 01/08/20 10:55 Dose: 140 mls/hr Documented by: Lactobacillus Acidoph/Casei/Rhamnos (Advanced Probiotic 1250 Mg Capsule) 2 cap PO DAILY [facility] Stop: 02/04/20 08:59 Last Admin: 01/08/20 09:54 Dose: 2 cap Documented by: Loperamide HCl (Loperamide Hcl 2 Mg Cap) 2 mg PO QID PRN PRN Reason: Diarrhea Stop: 02/03/20 16:35 Magnesium Hydroxide (Magnesium Hydroxide Susp 30 Ml Udc) 30 ml PO Q6H PRN PRN Reason: Constipation Stop: 02/03/20 12:42 Metoclopramide HCl (Metoclopramide Hcl Inj 5 Mg/Ml 2 Ml Vial) 10 mg IV Q6H PRN PRN Reason: Nausea And Vomiting Stop: 02/03/20 12:42 Multivitamins (Multivitamin Tab) [facility] [place] Stop: 02/04/20 08:59 Last Admin: 01/08/20 09:54 Dose: 1 tab Documented by: Nadolol (Nadolol 40 Mg Tab) 20 [facility] [place] Stop: 02/04/20 08:59 Last Admin: 01/08/20 09:55 Dose: 20 mg Documented by: Naloxone HCl (Naloxone Hcl 0.4 Mg/1 Ml Vial/Carp) 0.1 mg IV Q5M PRN PRN Reason: Oversedation/Resp Depression Stop: 02/03/20 12:42 Ondansetron HCl (Ondansetron Inj 2 Mg/Ml 2 Ml Vial) 4 mg IV Q6H PRN PRN Reason: Nausea And Vomiting Stop: 02/03/20 12:42 Oxycodone HCl (Oxycodone Hcl Ir 5 Mg Tab (Immediate Release)) 5 mg PO Q4H PRN PRN Reason: Pain or Pre PT Stop: 01/18/20 12:42 Last Admin: 01/08/20 11:00 Dose: 5 mg Documented by: Pantoprazole Sodium (Pantoprazole 40 Mg Tab) 40 mg PO QAM [facility] Stop: 02/04/20 08:59 Last Admin: 01/08/20 09:54 Dose: 40 mg Documented by: Sennosides (Senna 8.6 Mg Tab) 17.2 mg PO [facility] Stop: 02/03/20 20:59 Last Admin: 01/07/20 20:11 Dose: Not Given Documented by: Vitamin D (Cholecalciferol 1,000 Units 25 Mcg Tab) 1,000 units PO [facility] Stop: 02/04/20 08:59 Last Admin: 01/08/20 09:54 Dose: 1,000 units Documented by:
--- NOTE | 2020-01-09 08:41 | Discharge Summary ---
Date of Service January 09, 2020 Admission HPI Per Admitting Provider Montse is a pleasant 74-year-old female who underwent a left total knee arthroplasty 3-1/2 months ago. She initially did very well postoperatively. For the first 3 months she was doing great. She then had a cat bite on her left ankle. On the third day after the cat bite she had severe cellulitis extending up her leg past her knee. She went to the hospital. CT scan showed soft tissue edema but no localized abscess. She was treated with IV antibiotics. Her symptoms improved. She was then discharged home on oral amoxicillin. Unfortunate she then began having knee pain. She was downgraded to a cane and she is limping constantly because of the left knee pain. She noticed more more swelling around the left knee. She came to our office. I aspirated her left knee and sent to lab. The labs showed 30,000 and white count and elevated neutrophils. She had a high white blood cell count as well as a high sed rate and CRP. I decided to take her to the operating room for an open irrigation and debridement with polyexchange of the left knee. Principal Diagnosis Periprosthetic joint infection left knee Discharge Data Allergies Allergy/AdvReac Type Severity Reaction Status Date / Time latex Allergy Mild RASH Verified 01/04/20 09:57 hydrochlorothiazide Allergy Unknown reaction Verified 01/04/20 09:57 unknown triamterene Allergy Unknown reaction Verified 01/04/20 09:57 unknown NSAIDS (Non-Steroidal AdvReac Intermediate steinberg's Verified 01/04/20 09:57 Anti-Inflamma esophagus Dyazide AdvReac Mild reaction Verified 08/26/17 08:15 unknown Consultations 01/04/20 12:43 Consult Case Management - Discharge Planning Routine 01/04/20 12:51 Consult Hospitalist Routine 01/04/20 16:29 Consult Infectious Diseases Routine Procedures Performed Operation Date: 01/04/20 13:05 Actual Procedures p Poly Exchange Left Total Knee(Left) - Lanre Parekh DO s Irrigation and Debridement, (Left) - Lanre Parekh DO Ordered Studies 01/04/20 11:01 US - OR guided needle placemen Routine Hospital Course (1) Septic joint of left knee joint: On January 04, 2020 Montse arrived at [facility] and underwent an irrigation and debridement with polyexchange of her left knee without complication. Postoperatively she was started on aspirin for DVT prophylaxis and vancomycin for antimicrobial treatment. She was then transferred to the general orthopedic floors. On postop day #1 her H&H was stable and her pain was well controlled. She was seen by the hospitalist who treated her previously for her cat bite as well as infectious disease. Blood cultures were ordered. The wound cultures at that point were negative. The antibiotics were switched to Zosyn. On postop day #2 she continued to do well. She was able to ambulate with physical therapy. She had soreness and swelling of her knee. Blood cultures and wound cultures were still negative. On postop day #3 she continued to do fairly well. She was ambulating with physical therapy. On postop day #4 the PICC line was placed. She was set up with home IV antibiotics. She was given some oral oxycodone and aspirin for DVT prophylaxis. She will follow-up with orthopedics in 2 weeks. Total Time Total Time Spent Total Time Spent (In Minutes): 20 Discharge Plan Discharge Items Patient Disposition: Home - Home Health Services Reason For Visit: Left Total Knee Infection Discharge Diagnosis: Left knee replacement Activity: As commented below Non-emergency contact: Surgeon Call non-emergency contact if: your wound has increased redness and your wound has increased drainage Follow-up/Referrals: Kerrie Miranda MD [Primary Care Provider] - (Your doctor's office will call with an appointment within 7 days) Diet: Regular Addtl Attending Provider Instructions: ORTHOPEDIC INSTRUCTIONS Activity Recommendations: Weightbearing as tolerated on the left knee. Continue physical therapy with the left knee to ensure range of motion. Medications: Take IV antibiotics as prescribed Take an aspirin 81 mg twice a day for DVT prophylaxis Wear the NEREYDA hose stockings for 6 weeks Take oxycodone as needed for pain. Dressing Care: [place] can be open to air as long as the incisions are not draining. If the incisions are draining or if the sriram are getting caught on your clothes then please cover the sriram with dry gauze. Change the dressings as necessary to keep the incision as dry as possible Showering: You may shower 5 days from the day of surgery as long as the incisions are not draining. Do not soak the incision. Let soapy water run over the sriram and pat them dry. Things To Watch For: 1. Drainage from the incision site that occurs more than one week after your surgery. 2. Increased redness at the incision site. 3. Fever above 102 degrees Fahrenheit. 4. Unusual chest pain or shortness of breath. 5. Call [facility] at with any of the above problems Follow-Up Visit: Follow-up with Dr. Parekh's PA (Lanre Casillas) 2-3 weeks after your day of surgery. He will remove your sriram and answer any questions. If you have any additional questions or concerns, Dr Parekh is usually in the office at the same time and will be available An appointment was probably scheduled when you signed-up for surgery in the office. If you have any questions call Addtl Auto [employer] Attendant Provider Instructions: You will need to have weekly CBC and CMP while 1 IV antibiotic Also weekly CRP and ESR until normal and then every 2 weeks until 3 months after stopping antibiotic Continue Lactinex Pending Studies at Discharge: No Stand-Alone Forms: [facility], Opioid Pain Management, Smoking Cessation Medications and DC Order Prescriptions: New aspirin 81 mg Tablet,Delayed Release (Dr/Ec) 81 mg PO BID 42 Days Qty: 0 RF: 0 oxycodone 5 mg Tablet 5 mg PO Q4H PRN (Reason: pain) Qty: 30 RF: 0 ceftriaxone 1 gram recon soln 1 g IV DAILY Qty: 40 RF: 0 Lactinex 1 million cell tablet,chewable 1 tab PO BID Qty: 60 RF: 0 Continued omeprazole 40 mg capsule,delayed release(DR/EC) 40 mg PO QAM RF: 0 celecoxib [Celebrex] 200 mg capsule 200 mg PO QAM RF: 0 nadolol [Corgard] 20 mg tablet 20 mg PO QAM RF: 0 amlodipine 5 mg tablet 5 mg PO QAM RF: 0 ondansetron HCl [Zofran] 4 mg tablet 4 mg PO Q8H PRN (Reason: nausea and vomiting) Qty: 20 RF: 0 docusate sodium [Colace] 100 mg capsule 100 mg PO BID PRN (Reason: Constipation) RF: 0 duloxetine [Cymbalta] 60 mg capsule,delayed release(DR/EC) 60 mg PO QAM RF: 0 loperamide [Imodium A-D] 2 mg Capsule 2 mg PO QID PRN (Reason: Diarrhea) RF: 0 cholecalciferol (vitamin D3) 25 mcg (1,000 unit) Tablet 25 mcg PO QAM RF: 0 Advanced Probiotic 625 mg (10 billion cell) Capsule 2 cap PO DAILY Qty: 14 RF: 0 famotidine [Pepcid] 20 mg tablet 20 mg PO BID RF: 0 gabapentin 300 mg capsule 300 mg PO TID RF: 0 furosemide [Lasix] 20 mg tablet 40 mg PO QAM PRN (Reason: Edema) RF: 0 Discontinued amoxicillin-pot clavulanate [Augmentin] 875-125 mg tablet 1 tab PO Q12H Qty: 20 RF: 0 Discharge Orders: Discharge Order (Routine); Ordered 01/08/20 Ordered By: Lanre Nuñez/Other Patient Handouts: Central Line Central Venous ..., Caring for Your Central Vein Access, Peripherally Inserted Central ..., Discharge Instructions Changing ..., Caring for Your PICC Dc Admission Data Admit Date/Time: 01/05/20 12:32 Attending Provider: Lanre Parekh Admit Provider: Lanre Parekh Primary Care Provider: Kerrie Miranda Other Providers: Jose Carlos Vegas ; Kenji Zhao ; Wan George ; Samuel Stanford I. ; Ministerio Zepeda II ; Farrah Burton ; Sammy Head ; Benny Lopez Other Interventions: Discharge Summary Assessment (RN) Last Done: 01/08/20 14:11 Coding Level of Care Code D/C Day Management <30 mins Diagnoses Septic joint of left knee joint M00.9
== END 2020-01-08 17:00 | disposition home health service (06) | DRG 467 ==
LOC: 3E 09:33 → ASU 09:33